=== PATIENT | female | born 1985 | race Caucasian/White ===

== ENCOUNTER 2019-06-21 05:27 | Emergency (ER) | payer OTHER ==
[2019-06-21] MEDS ORDERED: SODIUM CHLORIDE 1,000 ML IV STA (05:36)
[2019-06-21 05:39] VITALS: BMI 28.3
[2019-06-21 06:04] LABS: BASO % 0.7 % (0-2.0); EOS % 2.2 % (0-4.5); HEMATOCRIT 35.3 % (32.4-45.2); HEMOGLOBIN 11.9 GM/dL (10.7-15.3); LYMPH % 22.1 % (8-40); MCH 25.4 pg (25.7-33.7); MCHC 33.8 g/dl (32.0-36.0); MEAN PLT VOLUME 8.6 fl (7.5-11.1); MONO % 8.6 % (3.8-10.2); NEUT % 66.4 % (42.8-82.8); PLATELET COUNT 241 K/MM3 (134-434); RDW 17.3 % (11.6-15.6); WHITE BLOOD COUNT 6.6 K/mm3 (4.0-10.0)
[2019-06-21 06:20] LABS: INR 1.09 (0.83-1.09); PROTHROMBIN TIME (PATIENT) 12.9 SEC (9.7-13.0)
[2019-06-21 06:28] LABS: HYALINE CASTS 11 /lpf (0-8); PH,URINE 5.5 (5.0-8.0); URINE APPEARANCE CLEAR; URINE BACTERIA 98.1 /hpf (NEGATIVE); URINE BILIRUBIN NEGATIVE (NEGATIVE); URINE COLOR DK YELLOW; URINE GLUCOSE (UA) NEGATIVE (NEGATIVE); URINE KETONE NEGATIVE (NEGATIVE); URINE LEUK ESTERASE NEGATIVE (NEGATIVE); URINE NITRITE NEGATIVE (NEGATIVE); URINE PROTEIN TRACE (NEGATIVE); URINE RBC 2 /hpf (0-4); URINE WBC 2 /hpf (0-5)
[2019-06-21] MEDS ORDERED: ACETAMINOPHEN 1000 MG/100 ML VIAL (NON FORMULARY) IVPB ONE (07:32)
--- NOTE | 2019-06-21 07:40 | PDOC ---
History of Present Illness - General Chief Complaint: Vaginal Bleeding Stated Complaint: 2 MONTHS / VAG BLEED Time Seen by Provider: 06/21/19 07:18 History Source: Patient Exam Limitations: Clinical Condition - History of Present Illness Initial Comments: 06/21/19 07:34 Patient LMP April 10 at 10 weeks with no significant past medical history present with complaint of vaginal bleeding which has been intermittent for the past 3 days now using padding on the last night when she had a gush of blood using one pad. Patient reports seen her GRIPPER MACHINE OPERATOR yesterday for vaginal bleeding and was told was normal and had transvaginal ultrasound which she reported parts identification technician inserted a lot of pressure on her cervix during the ultrasound. Patient also reported cramping lower abdominal pain since overnight. Patient did not take anything for pain. He denies nausea, vomiting, fever or chills. Denies any other symptoms Timing/Duration: other (3 days) Past History - Past Medical History Allergies/Adverse Reactions: Allergies Allergy/AdvReac Type Severity Reaction Status Date / Time No Known Allergies Allergy Verified 06/21/19 05:39 Home Medications: Ambulatory Orders NK [No Known Home Medication] 06/21/19 Anemia: No Asthma: No Cancer: No Cardiac Disorders: No CVA: No COPD: No CHF: No Dementia: No Diabetes: No GI Disorders: No Disorders: No HTN: No Hypercholesterolemia: No Liver Disease: No Seizures: No Thyroid Disease: No - Surgical History Abdominal Surgery: No Appendectomy: No Cardiac Surgery: No Cholecystectomy: No Lung Surgery: No Neurologic Surgery: No Orthopedic Surgery: No - Reproductive History Is Patient Now?: Yes (#): 3 Para: 1 - Immunization History Immunization Up to Date: No - Suicide/Smoking/Psychosocial Hx Smoking Status: No Smoking History: Never smoked Number of Cigarettes Smoked Daily: 0 Information on smoking cessation initiated: No Hx Alcohol Use: No Drug/Substance Use Hx: No Substance Use Type: None Hx Substance Use Treatment: No Review of Systems - Review of Systems Able to Perform ROS?: Yes Is the patient limited Belarusian proficient: No Constitutional: No: Chills, Fever, Malaise HEENTM: No: Symptoms Reported Respiratory: No: Symptoms reported Cardiac (ROS): No: Symptoms Reported ABD/GI: Yes: Symptoms Reported, See HPI, Abdominal cramping (lower abdomen). No : Constipated, Diarrhea, Nausea, Vomiting : Yes: Symptoms Reported, See HPI, Other (vaginal bleeding). No: Burning, Dysuria, Discharge, Frequency, Urgency Integumentary: No: Symptoms Reported Neurological: No: Symptoms reported, Numbness, Paresthesia, Dizziness *Physical Exam - Vital Signs Last Vital Signs Temp Pulse Resp BP Pulse Ox 98.2 F 73 18 135/90 97 06/21/19 05:27 06/21/19 05:27 06/21/19 05:27 06/21/19 05:27 06/21/19 05:27 - Physical Exam General Appearance: Yes: Nourished, Appropriately Dressed, Mild Distress HEENT: positive: Normal ENT Inspection Neck: positive: Supple Respiratory/Chest: positive: Lungs Clear, Normal Breath Sounds. negative: Respiratory Distress, Accessory Muscle Use Cardiovascular: positive: Regular Rhythm, Regular Rate Female Pelvic Exam: positive: normal external exam, cervical os closed, normal adnexa. negative: CMT, discharge, lesions (no visible lesions), vaginal bleeding (no blood in vaginal vault) Gastrointestinal/Abdominal: positive: Normal Bowel Sounds, Tender (mild TTP to suprapubic region), Flat, Soft. negative: Organomegaly Musculoskeletal: positive: Normal Inspection. negative: CVA Tenderness Extremity: positive: Normal Inspection Integumentary: positive: Normal Color Neurologic: positive: Fully Oriented, Normal Response ED Treatment Course - LABORATORY CBC & Chemistry Diagram: 06/21/19 05:55 - ADDITIONAL ORDERS Additional order review: Laboratory Results 06/21/19 06/21/19 06/21/19 06:20 06:20 05:55 PT with INR 12.90 INR 1.09 Beta HCG, Quant Urine Color Dk yellow Urine Appearance Clear Urine pH 5.5 Ur Specific [place] 1.024 Urine Protein Trace Urine Glucose (UA) Negative Urine Ketones Negative Urine Blood 1+ H Urine Nitrite Negative Urine Bilirubin Negative Urine Urobilinogen 1.0 Ur Leukocyte Esterase Negative Urine WBC (Auto) 2 Urine RBC (Auto) 2 Urine Casts (Auto) 11 U Epithel Cells (Auto) 3.0 Urine Bacteria (Auto) 98.1 Urine HCG, Qual Positive 06/21/19 05:55 PT with INR INR Beta HCG, Quant 44354.2 Urine Color Urine Appearance Urine pH Ur Specific [place] Urine Protein Urine Glucose (UA) Urine Ketones Urine Blood Urine Nitrite Urine Bilirubin Urine Urobilinogen Ur Leukocyte Esterase Urine WBC (Auto) Urine RBC (Auto) Urine Casts (Auto) U Epithel Cells (Auto) Urine Bacteria (Auto) Urine HCG, Qual 06/21/19 05:55 RBC 4.70 MCV 75.0 L MCHC 33.8 RDW 17.3 H MPV 8.6 Neutrophils % 66.4 Lymphocytes % 22.1 Monocytes % 8.6 Eosinophils % 2.2 Basophils % 0.7 - Medications Given in the ED: ED Medications Discontinued Medications Generic Name Dose Route Start Last Admin Trade Name Freq PRN Reason Stop Dose Admin Sodium Chloride 1,000 mls @ 1,000 mls/hr 06/21/19 05:36 06/21/19 06:10 Normal Saline - IV 06/21/19 06:35 1,000 mls/hr ASDIR STA Administration Medical Decision Making - Medical Decision Making 06/21/19 07:38 Patient with LMP April 10 at 10 weeks with no significant past medical history present with complaint of vaginal bleeding which has been intermittent for the past 3 days now using padding on the last night when she had a gush of blood using one pad. Patient reports seen her OB yesterday for vaginal bleeding and was told was normal and had transvaginal ultrasound which she reported parts identification technician inserted a lot of pressure on her cervix during the ultrasound. Patient also reported cramping lower abdominal pain since overnight. Patient did not take anything for pain. He denies nausea, vomiting, fever or chills. Denies any other symptoms No vaginal bleeding on exam with no blood in the vault. Cervical os closed. no CMT. Mild tenderness to deep palpation over suprapubic region without guarding or rebound. CBC unremarkable. Beta hCG is 90,800. Transvaginal ultrasound ordered for evaluation for . Urinalysis within normal limits. Tylenol 1 g IV ordered for pain. RH: O+.Treat based on ultrasound results. 06/21/19 10:21 Official ultrasound shows live IUP with CRL 3.96cm c/w 10.6wks with FH of 148bpm. Patient symptoms threatened Ab and stable for discharge with f/u with her OB. Patient report mild nausea. zofran 4mg SL ordered for nausea. Patient stable for discharge *DC/Admit/Observation/Transfer Diagnosis at time of Disposition: Threatened - Discharge Dispostion Disposition: HOME Condition at time of disposition: Stable Decision to Admit order: No - Referrals Referrals: Dorian Diaz MD [Primary Care Provider] - - Patient Instructions Printed Discharge Instructions: DI for Threatened Additional Instructions: Your ultrasound shows normal live baby with normal heart rate. He lab work was normal. No vaginal bleeding now. Take Tylenol as needed for pain. Follow-up back which he TECHNICAL OPERATOR Print Language: YAKUT - Post Discharge Activity
--- NOTE | 2019-06-21 08:02 | PDOC ---
*Physical Exam - Vital Signs Last Vital Signs Temp Pulse Resp BP Pulse Ox 98.2 F 73 18 135/90 97 06/21/19 05:27 06/21/19 05:27 06/21/19 05:27 06/21/19 05:27 06/21/19 05:27 - Physical Exam Comments: 06/21/19 08:01 The patient was examined by [ANDREZ Draper] under my direct supervision. I personally evaluated the patient. I concur with the above findings and the plan of care. ED Treatment Course - LABORATORY CBC & Chemistry Diagram: 06/21/19 05:55 - ADDITIONAL ORDERS Additional order review: Laboratory Results 06/21/19 06/21/19 06/21/19 06:20 06:20 05:55 PT with INR 12.90 INR 1.09 Beta HCG, Quant Urine Color Dk yellow Urine Appearance Clear Urine pH 5.5 Ur Specific [place] 1.024 Urine Protein Trace Urine Glucose (UA) Negative Urine Ketones Negative Urine Blood 1+ H Urine Nitrite Negative Urine Bilirubin Negative Urine Urobilinogen 1.0 Ur Leukocyte Esterase Negative Urine WBC (Auto) 2 Urine RBC (Auto) 2 Urine Casts (Auto) 11 U Epithel Cells (Auto) 3.0 Urine Bacteria (Auto) 98.1 Urine HCG, Qual Positive 06/21/19 05:55 PT with INR INR Beta HCG, Quant 43302.2 Urine Color Urine Appearance Urine pH Ur Specific [place] Urine Protein Urine Glucose (UA) Urine Ketones Urine Blood Urine Nitrite Urine Bilirubin Urine Urobilinogen Ur Leukocyte Esterase Urine WBC (Auto) Urine RBC (Auto) Urine Casts (Auto) U Epithel Cells (Auto) Urine Bacteria (Auto) Urine HCG, Qual 06/21/19 05:55 RBC 4.70 MCV 75.0 L MCHC 33.8 RDW 17.3 H MPV 8.6 Neutrophils % 66.4 Lymphocytes % 22.1 Monocytes % 8.6 Eosinophils % 2.2 Basophils % 0.7 - Medications Given in the ED: ED Medications Discontinued Medications Generic Name Dose Route Start Last Admin Trade Name Freq PRN Reason Stop Dose Admin Sodium Chloride 1,000 mls @ 1,000 mls/hr 06/21/19 05:36 06/21/19 06:10 Normal Saline - IV 06/21/19 06:35 1,000 mls/hr ASDIR STA Administration *DC/Admit/Observation/Transfer Diagnosis at time of Disposition: Threatened - Discharge Dispostion Disposition: HOME Condition at time of disposition: Stable - Referrals Referrals: Dorian Diaz MD [Primary Care Provider] - - Patient Instructions Printed Discharge Instructions: DI for Threatened Additional Instructions: Your ultrasound shows normal live baby with normal heart rate. He lab work was normal. No vaginal bleeding now. Take Tylenol as needed for pain. 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
[2019-06-21] MEDS ORDERED: ACETAMINOPHEN INJECTION 100 ML IVPB ONE (08:38)
[2019-06-21] MEDS ORDERED: ONDANSETRON *ODT* 4 MG TABLET SL ONE (10:03)
[2019-06-21] MEDS ORDERED: ONDANSETRON *ODT* 4 MG TABLET ONE (10:15)
[2019-06-21] MEDS ORDERED: KETOROLAC TROMETHAMINE 60 MG/2 ML VIAL ONE (10:15)
[2019-06-21 10:35] VITALS: BP 118/80; PULSE 63; TEMP 98
== END 2019-06-21 10:34 | disposition home or self-care (01) ==
LOC: JER 05:27
PROC: 3E033NZ Introduction of Analgesics, Hypnotics, Sedatives into Peripheral Vein, Percutaneous Approach (ICD-10-PCS; principal; 2019-06-21)
PROC: 3E0337Z Introduction of Electrolytic and Water Balance Substance into Peripheral Vein, Percutaneous Approach (ICD-10-PCS; 2019-06-21)
DX: O20.0 Threatened abortion (principal); Z3A.10 10 weeks gestation of pregnancy
CPT/HCPCS: 36415; 76801-TC; 81003; 84702; 84703; 85025; 85610; 86850; 86900; 86901; 87086; 96361; 96374; 99283-25; J0131; J7030

== ENCOUNTER 2020-01-11 10:10 | Inpatient (IN) | payer OTHER ==
[2020-01-11 11:07] LABS: BASO % 0.7 % (0-2.0); EOS % 1.8 % (0-4.5); HEMATOCRIT 34.4 % (32.4-45.2); HEMOGLOBIN 11.7 GM/dL (10.7-15.3); LYMPH % 16.2 % (8-40); MEAN CELL VOLUME 79.6 fl (80-96); MEAN PLT VOLUME 8.3 fl (7.5-11.1); MONO % 7.8 % (3.8-10.2); NEUT % 73.5 % (42.8-82.8); PLATELET COUNT 225 K/MM3 (134-434); RBC 4.32 M/mm3 (3.60-5.2); WHITE BLOOD COUNT 9.7 K/mm3 (4.0-10.0)
[2020-01-11 11:22] VITALS: BMI 33.4
[2020-01-11 11:24] LABS: INR 0.95 (0.83-1.09); PROTHROMBIN TIME (PATIENT) 11.2 SEC (9.7-13.0)
--- NOTE | 2020-01-11 11:26 | HP ---
Past Medical History - Admission Chief Complaint: Labor pain History of Present Illness: 34 yo @ 39 weeks gestation, admitted for labor pain. History Source: Patient Limitations to Obtaining History: No Limitations - Past Medical History ...: 3 ...Para: 1 ...Term: 1 ...: 0 ...Spon : 1 ...Multiple Gestation: 0 ...LMP: 04/13/19 ... Weeks Gestation by Dates: 39.0 ...EDC by Dates: 01/18/20 ...EDC by Sono: 01/18/20 - Past Surgical History Past Surgical History: Yes: None Hx Myomectomy: No Hx Transabdominal Cerclage: No - Smoking History Smoking history: Never smoked Have you smoked in the past 12 months: No Aproximately how many cigarettes per day: 0 - Alcohol/Substance Use Hx Alcohol Use: No History of Substance Use: reports: None - Social History ADL: Independent History of Recent Travel: No Home Medications - Allergies Allergies/Adverse Reactions: Allergies Allergy/AdvReac Type Severity Reaction Status Date / Time No Known Allergies Allergy Verified 01/11/20 11:36 - Home Medications Home Medications: Ambulatory Orders Labetalol HCl [Normodyne -] 200 mg PO DAILY 01/11/20 Vitamins (Sjr) - 1 tab PO DAILY 01/11/20 Family Medical History Family History: Unremarkable Review of Systems - Review of Systems Constitutional: reports: No Symptoms Eyes: reports: No Symptoms HENT: reports: No Symptoms Neck: reports: No Symptoms Cardiovascular: reports: No Symptoms Respiratory: reports: No Symptoms Gastrointestinal: reports: No Symptoms Genitourinary: reports: Pain Breasts: reports: No Symptoms Reported Musculoskeletal: reports: No Symptoms Neurological: reports: No Symptoms Psychiatric: reports: No Symptoms Pain Intensity: 7 Physical Exam - Maternity Vital Signs: Vital Signs Temperature 98.0 F 01/11/20 11:00 Pulse Rate 83 01/11/20 11:00 Respiratory Rate 01/11/20 11:00 Blood Pressure 132/93 01/11/20 11:00 O2 Sat by Pulse Oximetry (%) Constitutional: Yes: No Distress Eyes: Yes: Conjunctiva Clear HENT: Yes: Atraumatic Neck: Yes: Supple Cardiovascular: Yes: Regular Rate and Rhythm Lungs: Clear to auscultation - Abdominal Exam/OB Number of Fetuses: Single Presentation: Vertex - Vaginal Exam/OB Vaginal Bleediing: No Dilatation (cm): 2 Effacement (%): 70 Amniotic Membrane Status: Intact Presentation: Vertex/Position Station: -2 - Physical Exam Musculoskeletal: Yes: WNL Extremities: Yes: WNL ...Motor Strength: WNL Psychiatric: Yes: Alert, Oriented - Labs Lab Results: CBC, BMP 01/11/20 10:50 Problem List - Problems (1) 39 weeks gestation of Problems reviewed: Yes Code(s): Z3A.39 - 39 WEEKS GESTATION OF (2) Pain during labor Problems reviewed: Yes Code(s): O99.89 - OTH DISEASES AND CONDITIONS COMPL PREG/CHLDBRTH; R52 - PAIN, UNSPECIFIED Assessment/Plan 39 weeks gestation Pain in labor Admit to L&D Analgesia as needed Pitocin augmentation
[2020-01-11 11:27] LABS: ACTIVATED PTT 29.2 SECONDS (25.2-36.5)
[2020-01-11] MEDS ORDERED: DEXTROSE 5%-LACTATED RINGERS 1,000 ML IV SCH (11:30)
[2020-01-11] MEDS ORDERED: OXYTOCIN 30 UNITS in 0.9% NS 30 UNIT/500 ML INFUS.BAG IVPB SCH (11:30)
[2020-01-11 11:38] LABS: ALBUMIN 2.6 g/dl (3.4-5.0); BILIRUBIN,TOTAL 0.4 mg/dL (0.2-1); BLOOD UREA NITROGEN 4.4 mg/dL (7-18); CALCIUM 8.7 mg/dL (8.5-10.1); CREATININE 0.5 mg/dL (0.55-1.3); TOT PROT 6.3 g/dl (6.4-8.2)
[2020-01-11] MEDS ORDERED: OXYTOCIN 30 UNITS in 0.9% NS 30 UNIT/500 ML INFUS.BAG IVPB ONE (11:44)
[2020-01-11] MEDS ORDERED: BUTORPHANOL TARTRATE 2 MG/ML VIAL IVPUSH PRN (15:20)
[2020-01-11] MEDS ORDERED: PROMETHAZINE HCL 25 MG/1 ML VIAL IVPB PRN (15:20)
[2020-01-11] MEDS ORDERED: PROMETHAZINE HCL 25 MG/1 ML VIAL ONE (15:23)
[2020-01-11] MEDS ORDERED: BUTORPHANOL TARTRATE 1 MG/ML VIAL ONE ×2 (15:23)
--- NOTE | 2020-01-11 15:29 | PN ---
Progress Note (short form) - Note Progress Note: Patient seen and evaluated, c/o moderate discomfort. FHR : Reassuring Umbarger : + regular contractions VE : /-2 AROM ( clear ) A/P : 39 weeks gestation Active labor Stadol for pain Anticipate Problem List - Problems (1) 39 weeks gestation of Code(s): Z3A.39 - 39 WEEKS GESTATION OF (2) Pain during labor Code(s): O99.89 - OTH DISEASES AND CONDITIONS COMPL PREG/CHLDBRTH; R52 - PAIN, UNSPECIFIED
[2020-01-11] MEDS ORDERED: ELECTROLYTE-148 SOLN 1,000 ML IV SCH ×2 (17:00→17:30)
[2020-01-11] MEDS ORDERED: OXYTOCIN 20 UNITS in 0.9% NS 20 UNIT/1,000 ML INFUS.BAG IV ONE (17:24)
[2020-01-11] MEDS ORDERED: LIDO 2%/EPI 1:200000 PRESRVFRE (20 ML SDVIAL) ONE (17:25)
[2020-01-11] MEDS ORDERED: FENTANYL/BUPIVACAINE/NS/PF - PCEA - 50 ML DISP.SYRIN EP ONE (17:32)
[2020-01-11] MEDS ORDERED: LIDOCAINE HCL 1% PRESERVATIVE FREE - 30ML VIAL ONE (17:43)
[2020-01-11] MEDS: FENTANYL/BUPIVACAINE/NS/PF - PCEA - 50 ML DISP.SYRIN EP SCH (17:45)
[2020-01-11] MEDS ORDERED: NALOXONE HCL 0.4 MG/ML VIAL IVPUSH PRN (18:14)
[2020-01-11] MEDS ORDERED: WITCH HAZEL 50% (TUCKS) 40 PAD/JAR PAD TP PRN (18:59)
[2020-01-11] MEDS ORDERED: BENZOCAINE 28 GM HEMORRHOIDAL OINTMENT TP PRN (18:59)
[2020-01-11] MEDS ORDERED: BENZOCAINE 20% 57 GM BOTTLE TP PRN (18:59)
[2020-01-11] MEDS ORDERED: IBUPROFEN 600 MG TABLET (FP) PO PRN (18:59)
[2020-01-11] MEDS ORDERED: BISACODYL 10 MG SUPP.RECT RC PRN (18:59)
[2020-01-11] MEDS ORDERED: METHYLERGONOVINE MALEATE 0.2 MG/1 ML AMP IM PRN (18:59)
[2020-01-11] MEDS ORDERED: OXYTOCIN 20 UNITS in 0.9% NS 20 UNIT/1,000 ML INFUS.BAG IV SCH (19:00)
--- NOTE | 2020-01-11 19:04 | PN ---
Delivery - Delivery Vaginal Delivery: Spontaneous Type of Anesthesia: Epidural Episiotomy/Laceration: 1st degree EBL (cc): 300 Delivery, Single - Stages of Labor Date 1st Stage Initiatied: 01/11/20 Time 1st Stage Initiated: 08:30 Date 2nd Stage Initiated: 01/11/20 Time 2nd Stage Initiated: 18:35 Date of Delivery: 01/11/20 Time of Delivery: 18:44 Time Placenta Delivered: 18:49 - Condition of Infant Underwear Cutter/Label Maker Present: No Gender: Female Position: Left, OA Total Hours ROM (Hrs/Mins): 3hrs 37min - 1 Minute Total Score: 9 5 Minutes Total Score: 9 - Feeding Plan Initial Plan: Elected not to breastfeed exclusively throughout hospitalization Remarks - Remarks Remarks: Normal spontaneous vaginal delivery of a live infant girl over first degree laceration. Nose / Oropharynx suctioned @ perineum. Cord clamped and cut. Baby handed to nurse. Placenta expelled spontaneously intact. Laceration repaired with 2.0 Chromic.
[2020-01-11] MEDS: ACETAMINOPHEN 325 MG TABLET (FP) PO PRN (22:17)
[2020-01-12 09:34] LABS: BASO % 0.4 % (0-2.0); EOS % 0.7 % (0-4.5); HEMATOCRIT 33.2 % (32.4-45.2); HEMOGLOBIN 11.2 GM/dL (10.7-15.3); LYMPH % 15.3 % (8-40); MCH 27.3 pg (25.7-33.7); MCHC 33.8 g/dl (32.0-36.0); MEAN CELL VOLUME 80.8 fl (80-96); MEAN PLT VOLUME 8.7 fl (7.5-11.1); MONO % 7.1 % (3.8-10.2); NEUT % 76.5 % (42.8-82.8); PLATELET COUNT 224 K/MM3 (134-434); RBC 4.11 M/mm3 (3.60-5.2); WHITE BLOOD COUNT 10.3 K/mm3 (4.0-10.0)
[2020-01-12] MEDS: PRENATAL VITAMINS W/ FOLIC ACID TABLET (FP) PO SCH (09:43)
[2020-01-12] MEDS: FERROUS SO4 325 MG TABLET (FP) PO SCH ×3 (09:43→18:12)
[2020-01-12] MEDS: ACETAMINOPHEN 325 MG TABLET (FP) PO PRN ×2 (15:37→23:20)
[2020-01-12] MEDS ORDERED: SENNOSIDES/DOCUSATE COMBO (SENNA PLUS) TABLET (UD) PO PRN (22:00)
[2020-01-13] MEDS: ACETAMINOPHEN 325 MG TABLET (FP) PO PRN (05:55)
[2020-01-13] MEDS: FENTANYL/BUPIVACAINE/NS/PF - PCEA - 50 ML DISP.SYRIN EP SCH (06:59)
[2020-01-13] MEDS: FERROUS SO4 325 MG TABLET (FP) PO SCH ×2 (07:02→08:59)
[2020-01-13 08:43] VITALS: BP 145/95; PULSE 84; TEMP 98.6
[2020-01-13] MEDS: PRENATAL VITAMINS W/ FOLIC ACID TABLET (FP) PO SCH (08:59)
--- NOTE | 2020-01-13 10:36 | DS ---
Physical Exam-CHANGE MANAGEMENT LEAD Vital Signs: Vital Signs Temperature 98.6 F 01/13/20 08:42 Pulse Rate 84 01/13/20 08:42 Respiratory Rate 20 01/13/20 08:42 Blood Pressure 145/95 01/13/20 08:42 O2 Sat by Pulse Oximetry (%) 95 01/11/20 20:00 Constitutional: Yes: Well Nourished Eyes: Yes: Conjunctiva Clear HENT: Yes: Atraumatic Neck: Yes: Supple Cardiovascular: Yes: Regular Rate and Rhythm Respiratory: Yes: Regular Gastrointestinal: Yes: Normal Bowel Sounds Pelvis: Yes: WNL External Genitalia: Yes: Normal Vaginal Exam: Yes: Normal Cervix: Yes: Normal Uterus: Yes: Firm ....Post : Yes: Uterus firm, Moderate lochia serosa Breast(s): Yes: WNL Musculoskeletal: Yes: WNL Extremities: Yes: WNL Neurological: Yes: Alert, Oriented ...Motor Strength: WNL Psychiatric: Yes: Alert, Oriented Labs: CBC, BMP 01/12/20 08:40 01/11/20 10:50 Delivery - Delivery Vaginal Delivery: Spontaneous Type of Anesthesia: Epidural Episiotomy/Laceration: 1st degree EBL (cc): 300 Delivery, Single - Stages of Labor Date 1st Stage Initiatied: 01/11/20 Time 1st Stage Initiated: 08:30 Date 2nd Stage Initiated: 01/11/20 Time 2nd Stage Initiated: 18:35 Date of Delivery: 01/11/20 Time of Delivery: 18:44 Time Placenta Delivered: 18:49 - Condition of Time Stamp Assembler/Assistant Baseball Coach Present: No Gender: Female Weight: 9 lb 2 oz Position: Left, OA Total Hours ROM (Hrs/Mins): 3hrs 37min - 1 Minute Total Score: 9 5 Minutes Total Score: 9 - [place] Feeding Plan Initial Plan: Elected not to breastfeed exclusively throughout hospitalization Discharge Summary Problems reviewed: Yes Reason For Visit: INDUCTION OF LABOR Current Active Problems 39 weeks gestation of (Acute) Pain during labor (Acute) Status post normal vaginal delivery (Acute) Procedures: Principal: Normal spontaneous vaginal delivery Hospital Course: Routine care Health Concerns: None Plan of Treatment: Ambulation Analgesia as needed F/U with MD in 6 weeks Goals: Resume regular activities in 6 weeks Condition: Good - Instructions Diet, Activity, Other Instructions: Regular diet No douching, no sexual intercourse x 6 weeks F/U with MD in 6 weeks Disposition: HOME - Home Medications Comprehensive Discharge Medication List: Ambulatory Orders Labetalol HCl [Normodyne -] 200 mg PO DAILY 01/11/20 Vitamins (Sjr) - 1 tab PO DAILY 01/11/20
== END 2020-01-13 12:05 | disposition home or self-care (01) | DRG 560 ==
LOC: JLDR 10:10 → J3W 20:37
PROVIDERS: ADMIT Obstetrics & Gynecology; ATTEND Obstetrics & Gynecology
PROC: 10E0XZZ Delivery of Products of Conception, External Approach (ICD-10-PCS; principal; 2020-01-11)
PROC: 0HQ9XZZ Repair Perineum Skin, External Approach (ICD-10-PCS; 2020-01-11)
DX: O70.0 First degree perineal laceration during delivery (principal); Z3A.39 39 weeks gestation of pregnancy; Z37.0 Single live birth
CPT/HCPCS: 36415; 59409; 80053; 84550; 85025; 85610; 85730; 86593; 86850; 86900; 86901

== ENCOUNTER 2020-08-24 16:44 | Emergency (ER) | payer OTHER ==
--- OUTSIDE RECORDS SUMMARY | 2020-08-24 17:00 | XMS ---
:1985 Author Organization [facility] Care Team Providers Name Role Phone Jeremi, Santiago Unavailable Unavailable Jeremi, Santiago Unavailable Unavailable Jeremi, Santiago Unavailable Unavailable MIKEY AMMIR, AMMIR Unavailable Unavailable Arcadio Moss Unavailable [phone] Clinton Rosado MD Unavailable Unavailable Jossue Rosado MD Unavailable Unavailable Jossue Rosado MD Unavailable Unavailable Jossue Rosado MD Unavailable Unavailable Jossue Rosado MD Unavailable Unavailable Jossue Rosado MD Unavailable Unavailable Jossue Rosado MD Unavailable Unavailable Jossue Rosado MD Unavailable Unavailable Jossue Rosado MD Unavailable Unavailable Jossue Rosado MD Unavailable Unavailable Jossue Rosado MD Unavailable Unavailable Jossue Rosado MD Unavailable Unavailable Jossue Rosado MD Unavailable Unavailable Jossue Rosado MD Unavailable Unavailable Ibanez Unavailable [phone] Zackery Unavailable [phone] Mary Unavailable Unavailable Mary Unavailable Unavailable Mary Unavailable Unavailable Mary Unavailable Unavailable JOANNEZ ALCAZAR Unavailable Unavailable Menla Unavailable Unavailable Menla Unavailable Unavailable Menla Unavailable Unavailable Menla Unavailable Unavailable Menla Unavailable Unavailable Menla Unavailable Unavailable Malka Unavailable Unavailable Malka Unavailable Unavailable Malka Unavailable Unavailable Malka Unavailable Unavailable Malka Unavailable Unavailable Malka Unavailable Unavailable Malka Unavailable Unavailable Malka Unavailable Unavailable Malka Unavailable Unavailable Malka Unavailable Unavailable Malka Unavailable Unavailable Malka Unavailable Unavailable Malka Unavailable Unavailable Malka Unavailable Unavailable Malka Unavailable Unavailable Mikey Unavailable [phone] Mikey Unavailable [phone] Mikey Unavailable [phone] Mikey Unavailable [phone] Mikey Unavailable [phone] Mikey Unavailable [phone] Mikey Unavailable [phone] Mikey Unavailable [phone] Mikey Unavailable [phone] Mikey Unavailable [phone] Mikey Unavailable [phone] Mikey Unavailable [phone] Mikey Unavailable [phone] Mikey Unavailable [phone] Mikey Unavailable [phone] Mikey Unavailable [phone] ZUNASSIGNED Unavailable Unavailable MARY Unavailable Unavailable ZUNASSIGNED@, Unavailable Unavailable Re-disclosure Warning The records that you are about to access may contain information from federally- assisted alcohol or drug abuse programs. If such information is present, then the following federally mandated warning applies: This information has been disclosed to you from records protected by federal confidentiality rules (42 CFR part 2). The federal rules prohibit you from making any further disclosure of this information unless further disclosure is expressly permitted by the written consent of the person to whom it pertains or as otherwise permitted by 42 CFR part 2. A general authorization for the release of medical or other information is NOT sufficient for this purpose. The Federal rules restrict any use of the information to criminally investigate or prosecute any alcohol or drug abuse patient.The records that you are about to access may contain highly sensitive health information, the redisclosure of which is protected by Article 27-F of the [facility] Public Health law. If you continue you may haveaccess to information: Regarding HIV / AIDS; Provided by facilities licensed or operated by the [facility] Office of Mental Health; or Provided by the [facility] Office for People With Developmental Disabilities. If such information is present, then the following [facility] mandated warning applies: This information has been disclosed to you from confidential records which are protected by state law. State law prohibits you from making any further disclosure of this information without the specific written consent of the person to whom it pertains, or as otherwise permitted by law. Any unauthorized further disclosure in violation of state law may result in a fine or usp sentence or both. A general authorization for the release of medical or other information is NOT sufficient authorization for further disclosure. Allergies and Adverse Reactions Type Description Substance Reaction Status Data Source(s ) Drug allergy Ibuprofen Ibuprofen Nausea/Vomitin Active NEXTGEN ([facility]) No Known No Known No known eCW2 (Planned Allergies Allergies allergies Parenthood - (situation) [employer]) Encounters Encounter Providers Location Date Indications Data Source(s ) Outpatient Attender: 08/27/2020 [facility] ZUNASSIGNEDAdmit 11:23:00 [facility] ter: AM EDT ZUNASSIGNEDRefer rer: [id number] ZUNASSIGNED@, Outpatient Admitter: [id number] 08/27/2020 [facility] ZUNASSIGNED@,Ref 12:00:00 [facility] errer: [id number] AM EDT ZUNASSIGNED@, Attender: [address] 07/08/2020 [facility] [place] 11:33:00 [facility] EDT - Center) 07/08/2020 11:33:00 AM EDT Attender: [address] 06/26/2020 [facility] ([facility] [place] 04:33:00 [facility] EDT - Center) 06/26/2020 04:33:00 PM EDT Outpatient Attender: [facility] RIANA AM EDT MEJIAReferrer: RIANA MARY OutpatientOFFICE/ Attender: [address] 05/23/2020 NEX TGEN ([facility] OUTPATIENT VISIT, [place] 11:15:00 [facility] EDT - Center) 05/23/2020 11:15:00 AM EDT Outpatient 05/23/2020 [facility] 11:13:00 [facility] AM EDT Outpatient 05/23/2020 [facility] 10:40:00 [facility] AM EDT Outpatient 05/23/2020 [facility] 12:00:00 [facility] AM EDT Outpatient Attender: RIANA H 04/08/2020 [facility]: [facility] nter RIANA PM EDT MEJIAReferrer: RIANA MARY OutpatientOFFICE/ Attender: [address] 04/08/2020 NEX TGEN ([facility] OUTPATIENT VISIT, [place] 03:47:00 [facility] EST PM EDT - Center) 04/08/2020 03:47:00 PM EDT Outpatient 04/08/2020 [facility] 03:45:00 Medical Center PM EDT Outpatient 04/08/2020 [facility] 12:00:00 Medical Center AM EDT Attender: Russell Torres [facility] 03/19/2020 [facility] ([facility] [place] 04:45:00 [facility] PM [facility]T - Center) 03/19/2020 04:45:00 PM EDT Attender: [facility] 03/04/2020 [facility] ([facility] [place] 03:19:00 [facility] PM EDT - Center) 03/04/2020 03:19:00 PM EDT Attender: [facility] 01/31/2020 [facility] ([facility] [place] 03:29:00 [facility] PM EST - Center) 01/31/2020 03:29:00 PM EST Attender: [facility] 01/01/2020 [facility] ([facility] [place] 12:45:00 [facility] PM EST - Center) 01/01/2020 12:45:00 PM EST Attender: Russell [address] [place] [address] 10/06/2019 [facility] ([facility] [place] 11:25:00 [facility] AM EST - Center) 10/06/2019 11:25:00 AM EST Outpatient Attender: RIANA Werner 09/26/2019 [facility] MEGGNAAAdmitter: 09:28:00 Medical Ce nter RIANA AM EDT MEGGANAReferrer: RIANA MARY OutpatientOFFICE/ Attender: Russell Torres [facility] 09/26/2019 NEX TGEN ([facility] OUTPATIENT VISIT, [place] 09:28:00 [facility] EST AM EDT - Center) 09/26/2019 09:28:00 AM EDT Outpatient 09/26/2019 [facility] 09:24:00 Medical Center AM EDT Outpatient 09/26/2019 [facility] 12:00:00 Medical Center AM EDT Attender: Urssell [address] [place] [address] 08/28/2019 [facility] ([facility] [place] 11:16:00 [facility] AM EDT - Center) 08/28/2019 11:16:00 AM EDT Attender: Russell [address] [place] [address] 06/21/2019 NEXT ([facility] [place] 04:39:00 [facility] PM EDT - Center) 06/21/2019 04:39:00 PM EDT Outpatient 05/29/2019 [facility] 10:37:00 Medical Center AM EDT Outpatient 05/29/2019 [facility] 12:00:00 Medical Center AM EDT Outpatient Attender: JEROD Werner 05/23/2019 [facility] 11:01:00 [facility] Center AMMIRAdmitter: AM EDT AMMIR MIKEY AMMIRReferrer: AMMIR MIKEY AMMIR OutpatientOFFICE/ Attender: [facility] 05/23/2019 GARY MEYERS ([facility] OUTPATIENT VISIT, [place] 11:01:00 [facility] AM EDT - Center) 05/23/2019 11:01:00 AM EDT Outpatient 05/23/2019 [facility] 10:59:00 Medical Center AM EDT Outpatient 05/23/2019 [facility] 12:00:00 Medical Center AM EDT Attender: [facility] 05/19/2019 ROMÁN MIR ([facility] 09:30:00 [facility] AM [facility]T - Center) 05/19/2019 09:30:00 AM EDT Emergency H 05/16/2019 [facility] 04:55:00 Medical Center PM EDT Attender: [facility] 05/16/2019 ROMÁN MIR ([facility] 03:45:00 [facility] PM EDT - Center) 05/16/2019 03:45:00 PM EDT Outpatient 05/15/2019 [facility] 10:52:00 Medical Center AM EDT Outpatient Attender: Clinton Werner 05/15/2019 [facility] Justin Rosado MDAdmitter: 09:24:00 Medical Ce nter [place] Rosado AM EDT MDReferrer: Clinton Rosado MD OutpatientOFFICE/ Attender: [facility] 05/15/2019 ESAU ([facility] OUTPATIENT VISITAlonzo MD 09:24:00 [facility] EST AM EDT - Center) 05/15/2019 09:24:00 AM EDT Outpatient 05/15/2019 [facility] 12:00:00 Medical Center AM EDT Outpatient 05/08/2019 [facility] 02:10:00 Medical Center PM EDT Outpatient Attender: ALEXANDRAR H 05/08/2019 [facility] MIKEY 10:05:00 [facility] AMMIRAdmitter: AM EDT AMMIR MIKEY AMMIRReferrer: AMMIR MIKEY AMMIR OutpatientOFFICE/ Attender: [address] 05/08/2019 NEX TGEN ([facility] OUTPATIENT VISIT, [place] 10:05:00 [facility] AM EDT - [place]) 05/08/2019 10:05:00 AM EDT Outpatient 05/08/2019 [facility] 12:00:00 [facility] AM EDT Inpatient Attender: Moni H-HAL6 05/03/2019 [facility] SayeghAttender: 10:45:00 Medical C enter OTTONIEL DAVID PM EDT - ROBERTAdmitter: 05/06/2019 OTTONIEL DAVID 12:30:00 ROBERTReferrer: PM EDT OTTONIEL DAVID OTTONIEL Patient discharged. Attender: [address] [facility] [place] 09:33:00 AM EDT [facility] 04/25/2019 [place]) 09:33:00 AM EDT Attender: [address] 04/19/2019 [facility] ([facility] [place] 09:25:00 AM EDT [facility] 04/19/2019 [place]) 09:25:00 AM EDT Attender: [address] 04/05/2019 [facility] [place] 01:01:00 PM EDT [facility] 04/05/2019 [place]) 01:01:00 PM EDT Attender: [address] 03/31/2019 [facility] ([facility] [place] 05:28:00 PM EDT [facility] 03/31/2019 [place]) 05:28:00 PM EDT Outpatient 03/23/2019 [facility] 04:23:00 PM EDT Medical C enter Outpatient Attender: JEROD H 03/23/2019 [facility] MIKEY 12:21:00 PM EDT Medical C enter AMMIRAdmitter: AMMIR MIKEY AMMIRReferrer: AMMIR MIKEY AMMIR OutpatientOFFICE/ Attender: [address] 03/23/2019 NEX TGEN ([facility] OUTPATIENT VISIT, [place] 12:21:00 PM EDT - [facility] Medical EST 03/23/2019 [place]) 12:21:00 PM EDT Outpatient 03/23/2019 [facility] 12:00:00 AM EDT Medical C enter [facility] 03/21/2019 [facility] 12[facility] [place] [facility] [employer] 03/01/2019 [facility]CW[facility] ([facility] 12:00:00 AM EDT [facility] [place] [facility] [employer]) Outpatient Attender: JEROD Werner 02/27/2019 [facility] MIKEY 10:36:00 AM EDT Medical C enter AMMIRAdmitter: JEROD JENSEN AMMIRReferrer: JEROD JENSEN AMMIJossue OutpatientOFFICE/ Attender: Russell [address] [place] [address] 02/27/2019 GARY TGCLARKE ([facility] OUTPATIENT VISIT, [place] 10:36:00 AM EDT [facility] 02/27/2019 [place]) 10:36:00 AM EDT Outpatient 02/27/2019 [facility] 09:57:00 AM EDT Medical C enter Outpatient 02/27/2019 [facility] 12:00:00 AM EDT Medical C enter Outpatient 01/27/2019 [facility] 02:02:00 PM EST Medical C enter Outpatient 01/27/2019 [facility] 12:00:00 AM EST Medical C enter Attender: Russell [address] [place] [address] 12/02/2018 [facility] ([facility] [place] 01:18:00 PM EST [facility] 12/02/2018 [place]) 01:18:00 PM EST Attender: Russell [address] [place] [address] 11/30/2018 [facility] ([facility] [place] 12:14:00 PM [facility] 11/30/2018 [place]) 12:14:00 PM EST OutpatientOFFICE/ Attender: Russell [address] [place] [address] 11/24/2018 NEX TGEN ([facility] OUTPATIENT VISIT, [place] 04:28:00 PM EST [facility] 11/24/2018 [place]) 04:28:00 PM EST Attender: Russell [address] [place] [address] 11/23/2018 [facility] ([facility] [place] 05:04:00 PM [facility] 11/23/2018 [place]) 05:04:00 PM EST Attender: [address] 11/14/2018 [facility] ([facility] [place] 03:15:00 PM [facility] 11/14/2018 [place]) 03:15:00 PM EST Attender: [address] 11/02/2018 [facility] ([facility] [place] 02:45:00 PM [facility] 11/02/2018 [place]) 02:45:00 PM EST Attender: [address] 10/06/2018 [facility] 10/06/2018 [place]) 03:33:00 PM EST Attender: [address] 09/26/2018 [facility] [facility] 09/26/2018 [place]) 09:44:00 AM EDT Attender: [address] 08/17/2018 [facility] ([facility] [place] 10:12:[address] [facility] 08/17/2018 [place]) 10:12:00 AM EDT Attender: [address] 07/13/2018 [facility] ([facility] [place] 02:21:[address] [facility] 07/13/2018 [place]) 02:21:00 PM EDT Attender: [address] 05/30/2018 [facility] ([facility] [place] 03:06:[address] [facility] 05/30/2018 [place]) 03:06:00 PM EDT Attender: [address] 05/25/2018 [facility] ([facility] [place] 04:35:[address] [facility] 05/25/2018 [place]) 04:35:00 PM EDT Attender: [address] 05/11/2018 [facility] [place] [facility] [place] 10:45:00 AM EDT Attender: [address] 04/26/2018 [facility] ([facility] [place] 10:36:[address] [facility] 04/26/2018 [place]) 10:36:00 AM EDT Attender: [address] 03/28/2018 [facility] ([facility] [place] 02:16:00 PM T [facility] 03/28/2018 [place]) 02:16:00 PM EDT Attender: Russell [address] [place] [address] 03/24/2018 [facility] ([facility] [place] 03:51:[address] [facility] 03/24/2018 [place]) 03:51:00 PM EDT Attender: Russell [address] [place] [address] 03/09/2018 [facility] ([facility] [place] 09:48:00 AM T [facility] 03/09/2018 [place]) 09:48:00 AM EDT Attender: Russell [address] [place] [address] 02/15/2018 [facility] ([facility] [place] 09:41:[address] [facility] 02/15/2018 [place]) 09:41:00 AM EDT Attender: Russell [address] [place] [address] 02/10/2018 [facility] ([facility] [place] 11:28:[address] [facility] 02/10/2018 [place]) 11:28:00 AM EDT Attender: [address] 11/17/2017 [facility] ([facility] [place] 10:02:00 AM [facility] 11/17/2017 [place]) 10:02:00 AM EST Attender: [address] 11/08/2017 [facility] ([facility] [place] 03:27:00 PM [facility] 11/08/2017 [place]) 03:27:00 PM EST Attender: Riana [address] [place] [address] 10/07/2017 [facility] ( [facility] 03:03:00 PM [facility] 10/07/2017 [place]) 03:03:00 PM EST Attender: Russell [address] [place] [address] 09/28/2017 [facility] ([facility] [place] 11:23:[address] [facility] 09/28/2017 [place]) 11:23:00 AM EDT Attender: Russell [address] [place] [address] 09/17/2017 [facility] ([facility] [place] 02:40:[address] [facility] 09/17/2017 [place]) 02:40:00 PM EDT Attender: [address] 09/14/2017 [facility] ([facility] [place] 02:21:[address] [facility] 09/14/2017 [place]) 02:21:00 PM EDT Attender: Russell [address] [place] [address] 08/17/2017 [facility] ([facility] [place] 02:17:00 PM EDT - [facility] 08/17/2017 Center) 02:17:00 PM EDT Attender: [address] 08/03/2017 [facility] ([facility] [place] 02:48:00 PM EDT [facility] 08/03/2017 [facility]) 02:48:00 PM EDT [facility] 08/03/2017 [facility]CW[facility] ([facility] 12:00:00 AM EDT [facility] [place] [facility] [employer] 07/06/2017 eCW2 ([facility] 12:00:00 AM EDT [facility] [place] [facility] [employer]) Attender: [address] 04/27/2017 [facility] ([facility] [place] 03:14:[address] [facility] 04/27/2017 [place]) 03:14:00 PM EDT Attender: [address] 03/26/2017 [facility] ([facility] [place] 03:07:00 PM EDT [facility] 03/26/2017 [place]) 03:07:00 PM EDT Attender: [address] 02/22/2017 [facility] ([facility] [place] 02:29:00 PM EDT [facility] 02/22/2017 [place]) 02:29:00 PM EDT Attender: [facility] 12/29/2016 N[facility] ([facility] 09:09:00 AM [facility] 12/29/2016 [place]) 09:09:00 AM EST Attender: [facility] 12/22/2016 NEXT GEN ([facility] 09:12:00 AM [facility] 12/22/2016 [place]) 09:12:00 AM EST Attender: [address] 12/11/2016 [facility] ([facility] [place] 09:23:00 AM [facility] 12/11/2016 [place]) 09:23:00 AM EST Attender: [address] 11/13/2016 [facility] ([facility] [place] 03:11:00 PM [facility] 11/13/2016 [place]) 03:11:00 PM EST Attender: [address] 11/02/2016 [facility] ([facility] [place] 09:57:00 AM EST [facility] 11/02/2016 [place]) 09:57:00 AM EST Attender: [address] 10/06/2016 [facility] ([facility] [place] 03:18:00 PM [facility] 10/06/2016 [place]) 03:18:00 PM EST Attender: Russell [address] [place] [address] 09/08/2016 [facility] [place] [facility] [place] 02:18:00 PM EDT Attender: [address] 08/28/2016 [facility] ([facility] [place] 02:23:[address] [facility] 08/28/2016 [place]) 02:23:00 PM EDT Attender: [address] 07/28/2016 [facility] ([facility] [place] 02:36:[address] [facility] 07/28/2016 [place]) 02:36:00 PM EDT Attender: [address] 06/10/2016 [facility] [place] [facility] [place] 10:05:00 AM EDT Attender: [facility] 06/02/2016 [facility] [place] 10:50:00 AM EDT Attender: [facility] 05/27/2016 [facility]EXT [facility] ([facility] 03[facility] [facility] 05/27/2016 [place]) 03:03:00 PM EDT Attender: [address] 2016 [facility] ([facility] [place] [facility] [address] [facility] [place] 02:06:00 PM EDT Attender: [facility] 05/06/2016 NEXT GEN ([facility] 01:04:00 PM EDT [facility] 05/06/2016 [place]) 01:04:00 PM EDT Attender: [address] 04/24/2016 [facility] ([facility] [place] [facility] [address] [facility] 04/[facility] [place] 03:15:00 PM EDT Attender: [facility] 04/16/2016 NEXT GEN ([facility] 01:27:00 PM EDT [facility] 04/16/2016 [place]) 01:27:00 PM EDT Attender: [address] 04/10/2016 [facility] ([facility] [place] 10:48:[address] [facility] 04/10/2016 [place]) 10:48:00 AM EDT Attender: [address] 03/25/2016 [facility] ([facility] [place] 01:59:00 PM EDT [facility] 03/25/2016 [place]) 01:59:00 PM EDT Attender: [facility] 03/17/2016 NEXT GEN [facility] [place] 09:32:00 AM EDT Attender: [address] 02/27/2016 [facility] ([facility] [place] 12:51:[address] [facility] 02/27/2016 [place]) 12:51:00 PM EDT Attender: [address] 02/17/2016 [facility] ([facility] [place] [facility] [address] [facility] [place] 02:06:00 PM EDT Attender: [address] 01/01/2016 [facility] ([facility] [place] 02:58:00 PM [facility] 01/01/2016 [place]) 02:58:00 PM EST Attender: [address] 12/30/2015 [facility] ([facility] [place] 10:36:00 AM [facility] 12/30/2015 [place]) 10:36:00 AM EST Attender: [address] 12/27/2015 [facility] ([facility] [place] 09:55:00 AM [facility] 12/27/2015 [place]) 09:55:00 AM EST Attender: [address] 12/02/2015 [facility] ([facility] [place] 09:29:00 AM [facility] 12/02/2015 [place]) 09:29:00 AM EST Attender: [address] 11/04/2015 [facility] ([facility] [place] 03:18:00 PM [facility] 11/04/2015 [place]) 03:18:00 PM EST Attender: [address] 10/07/2015 [facility] ( [facility] [place] 09:49:[facility] Ammir Mikey 09:49:00 AM EST Attender: [address] 09/25/2015 [facility] ([facility] [place] 03:55:[address] [facility] 09/25/2015 [place]) 03:55:00 PM EDT Attender: [address] 09/12/2015 [facility] ([facility] [place] 12:11:00 PM EDT [facility] 09/12/2015 [place]) 12:11:00 PM EDT Attender: [address] 09/03/2015 [facility]EXTGEN ( [facility] [place] 03:53:00 [facility] Ammir Mikey 03:53:00 PM EDT Attender: [address] 08/23/2015 [facility]EXTGEN ( [facility] [place] 04:26:00 [facility] Ammir Mikey 04:26:00 PM EDT Attender: [address] 08/15/2015 NEXTGEN ( [facility] [place] 04:09:00 [facility] Ammir Mikey 04:09:00 PM EDT Attender: [address] 08/12/2015 [facility] ([facility] [place] 03:27:[address] [facility] 08/12/2015 [place]) 03:27:00 PM EDT Attender: [address] 07/24/2015 [facility]EXT[facility] ([facility] [place] 10:59:00 AM EDT [facility] 07/24/2015 [place]) 10:59:00 AM EDT Attender: [address] 07/12/2015 NEXTGEN ( [facility] [place] 02:47:00 PM [facility] Ammir Mikey 02:47:00 PM EDT Attender: [address] 07/08/2015 NEXTGEN ([facility] [place] 09:52:[address] [facility] 07/08/2015 [place]) 09:52:00 AM EDT Attender: [address] 06/24/2015 [facility]EXT[facility] ([facility] [place] 02:06:00 PM EDT [facility] 06/24/2015 [place]) 02:06:00 PM EDT Attender: [address] 06/14/2015 [facility] ([facility] [place] 02:28:[address] [facility] 06/14/2015 [place]) 02:28:00 PM EDT Attender: [address] 06/10/2015 [facility] ([facility] [place] 02:29:00 PM T [facility] 06/10/2015 [place]) 02:29:00 PM EDT Attender: [address] 05/30/2015 NEXTGEN ( [facility] [place] 04:47:00 PM EDT [facility] GarciaAttender: 05/30/2015 [place]) Jerod Jensen 04:47:00 PM EDT Attender: [address] 05/28/2015 [facility] ([facility] [place] 10:19:[address] [facility] 05/28/2015 [place]) 10:19:00 AM EDT Attender: [address] 05/23/2015 NEXTGEN ([facility] Jeremi 12:54:00 PM EDT [facility] 05/23/2015 [place]) 12:54:00 PM EDT Attender: [address] 05/06/2015 NEXTGEN ([facility] [place] 02:15:[address] [facility] 05/06/2015 [place]) 02:15:00 PM EDT Attender: [address] 04/17/2015 NEXT[facility] ([facility] [place] 02:15:[address] [facility] 04/17/2015 [place]) 02:15:00 PM EDT Attender: [address] 04/12/2015 [facility]EXT[facility] ([facility] [place] 01:59:[address] [facility] 04/12/2015 [place]) 01:59:00 PM EDT Attender: [address] 03/14/2015 [facility] ([facility] [facility] 03/14/2015 [place]) 11:53:00 AM EDT Attender: [address] 02/19/2015 NEXTGEN ( [place] 10:39:00 AM EDT - [facility] Medical GarciaAttender: 02/19/2015 Center) Ammir Mikey 10:39:00 AM EDT Attender: Yissel [address] 02/07/2015 NEXTGEN ([facility] [place]ackery 01:23:00 PM EDT - [facility] Medical 02/07/2015 Center) 01:23:00 PM EDT Attender: [place]io [address] 01/29/2015 NEXTGEN ( [place] 10:18:00 AM EST [facility] Medical GarciaAttender: 01/29/2015 Center) Ammir Mikey 10:18:00 AM EST Attender: [place] [address] [facility] [place] 12:32:00 PM EST [facility] GarciaAttender: 01/24/2015 Center) Ammir Mikey 12:32:00 PM EST Attender: [place] [address] 01/21/2015 [facility] [place] 03:43:00 PM EST - [facility] Medical GarciaAttender: 01/21/2015 Center) Ammir Mikey 03:43:00 PM EST Attender: [place] [address] 01/09/2015 [facility] [place] 11:28:00 AM EST - [facility] Medical GarciaAttender: 01/09/2015 Center) Ammir Mikey 11:28:00 AM EST Attender: [place] [address] 12/27/2014 [facility] [place] 04:13:00 PM EST - [facility] Medical GarciaAttender: 12/27/2014 Center) Ammir Mikey 04:13:00 PM EST Attender: [place] [address] 12/20/2014 [facility] [place] 11:19:00 AM EST - [facility] Medical GarciaAttender: 12/20/2014 Center) Ammir Mikey 11:19:00 AM EST Attender: [place] [address] 12/13/2014 [facility] [place] 11:41:00 AM EST [facility] Medical GarciaAttender: 12/13/2014 Center) Ammir Mikey 11:41:00 AM EST Attender: [place] [address] 11/19/2014 [facility] [place] 02:34:00 PM EST - [facility] Medical GarciaAttender: 11/19/2014 Center) Ammir Mikey 02:34:00 PM EST Attender: [address] 10/22/2014 NEXTGEN ( [place] 09:43:00 AM EST [facility]2014 Center) Ammir Mikey 09:43:00 AM EST Attender: [address] 09/24/2014 NEXTGEN ( [place] 10:45:[facility] Ammir Mikey 10:45:00 AM EDT Attender: [address] 09/17/2014 [facility]EXTGEN ([facility] 12:20:00 PM EDT [facility] 09/17/2014 Center) 12:20:00 PM EDT Attender: [address] 08/29/2014 [facility] 02:29:00 PM EDT [facility] 08/29/2014 Center) 02:29:00 PM EDT Attender: [address] 08/21/2014 NEXTGEN ( [place] 09:53:00 AM [facility] Ammir Mikey 09:53:00 AM EDT Attender: [address] 07/31/2014 [facility] [place] 01:42:00 PM [facility] Ammir Mikey 01:42:00 PM EDT Attender: [address] 07/25/2014 NEXTGEN ( [place] 09:27:00 AM [facility]) Ammir Mikey 09:27:00 AM EDT Attender: [address] 05/03/2014 [facility] 03:49:00 PM EDT [facility] 05/03/2014 Center) 03:49:00 PM EDT Attender: [address] 04/24/2014 NEXTGEN ( [place] 10:50:00 AM [facility]) Ammir Mikey 10:50:00 AM EDT Attender: [address] 04/17/2014 NEXTGEN ( [place] 09:32:00 AM EDT - [facility]: 04/17/2014 Center) Ammir Mikey 09:32:00 AM EDT Attender: [address] 04/10/2014 NEXTGEN ( [place] 04:47:00 PM EDT - [facility] CenterAtt[facility]: 04/10/2014 Center) Ammir Mikey 04:47:00 PM EDT Attender: [address] 03/26/2014 NEXTGEN ( [place] 01:07:00 PM EDT - [facility] Center[facility]: 03/26/2014 Center) Ammir Mikey 01:07:00 PM EDT Attender: [address] 03/15/2014 NEXTGEN ( [place] 01:37:00 PM EDT - [facility] CenterAttender: 03/15/2014 [place]) Ammir Mikey 01:37:00 PM EDT Immunizations Vaccine Date Status Description Data Source(s) Misoprostol #4 (MAB) 03/01/2019 completed eCW2 (P lanned 03:43:00 [facility] ED[facility] [employer]) Mifepristone 03/01/2019 completed eCW2 (Planned 03:42:00 PM [facility] EDT [employer]) New in 2011. IIV4 08/17/2017 completed Influenza, NEXTGEN ( [facility] 12:00:00 AM injectable, [facility] EDT quadrivalent, Center) preservative free, 3 yrs or older Source: New Immunization Record IIV3. This is one 08/28/2016 12:00:00 completed Influenza, seaso nal, NEXTGEN ([facility] of two codes AM EDT injectable (3 yrs or [facility] replacing CVX 15, older) Center) which is being retired. Source: New Immunization Record IIV3. This is one 09/12/2015 12:00:00 completed Influenza, seaso nal, NEXTGEN ([facility] of two codes AM EDT injectable (3 yrs or [facility] replacing CVX 15, older) Center) which is being retired. Source: New Immunization Record Tdap 10/22/2014 12:00:00 AM EST completed Tdap N EXTGEN ([facility]) Source: New Immunization Record This code is being 09/17/2014 12:00:00 completed Flu (split) (3 NEXTGEN ([facility] retired. It will still be AM EDT yrs or older) J osep Medical found in older Center) immunization records. It included both preservative free and non-preservative free. Source: New Immunization Record Medications Medication Brand Start Product Dose Route Administrative [facility] Indications Reaction Description Data Name Date Form Instructions Instructions Source(s) Ciprofloxac Cipro ORAL active Ciproflo xaci NEXTGEN in 250 MG 250 mg 2019 {tbl} n 250 MG (Sa int Oral Tablet tablet 12:00: Oral Tabl et Ayah [Cipro] 00 AM [Cipro] Medical Cipro 250 EDT Center) mg tablet Naproxen naprox ORAL active take 1 NEX TGEN 500 MG Oral en 500 2020 {tbl} tablet by (Saint Tablet mg 12:00: oral route 2 Sundeep ephs naproxen tablet 00 AM times every M edical 500 mg EDT day with Center) tablet food Amoxicillin amoxic ORAL active take 1 NEXTGEN 500 MG Oral illin 2020 {caps capsule by (Saint Capsule 500 mg 12:00: ule} oral route Sarah sephs amoxicillin capsul 00 AM every 12 M edical 500 mg e EDT hours Center) capsule Acetaminoph Mapap ORAL active Acetamin ophe NEXTGEN en 500 MG (aceta 2020 {caps n 500 MG (Sa int Oral minoph 12:00: ule} Oral Capsule Sundeep ephs Capsule en) 00 AM [Mapap] Medical [Mapap] 500 mg EDT Center) Mapap capsul (acetaminop e hen) 500 mg capsule Polymyxin B polymy OPHTHA complet inst ill 1 NEXTGEN 82163 daphnie B 2020 drop LMIC ed drop by (Saint UNT/ML / sulfat 12:00: ophthal[facility] Trimethopri e 00 AM route every Medical m 1 MG/ML 10,000 EDT 6 hours into Center) Ophthalmic unit-t affected Solution rimeth eye(s) polymyxin B oprim sulfate 1 10,000 mg/mL unit-trimet eye hoprim 1 drops mg/mL eye drops Amlodipine amlodi ORAL active take 1 N EXTGEN 5 MG Oral pine 5 2019 {tbl} tablet by (S aint Tablet mg 12:00: oral route Lizandro hs amlodipine tablet 00 AM every day M edical 5 mg tablet EDT Center) sennosides, senna 01/30/ .00 ORAL active take 2 N EXTGEN MCC 8.6 MG 8.6 mg 2019 {tbl} tablet by ( [facility] Oral Tablet tablet 12:00: oral rout e Ayah senna 8.6 00 AM every day as M edical mg tablet EST needed for Cent er) constipation Methyldopa methyl ORAL active take 1 N EXTGEN 500 MG Oral dopa 2019 {tbl} tablet by (S aint Tablet 500 mg 12:00: oral route 2 J osephs methyldopa tablet 00 AM times every Medical 500 mg EST day Center) tablet Polyethylen Systan 10/06/ active Polyeth ylene NEXTGEN e Glycol e (PF) 2019 Glycol 400 4 ( [facility] 400 4 MG/ML 0.4 12:00: MG/ML / Sundeep ephs / Propylene %-0.3 00 AM Propylene M edical glycol 3 % eye EST glycol 3 Center ) MG/ML drops MG/ML Ophthalmic in a Ophthalmic Solution droppe Solution [Systane] rette [Systane] Systane (PF) 0.4 %-0.3 % eye drops in a dropperette Hydrocortis hydroc apply by NEXTGEN one 25 ortiso 2018 ed topical (Saint MG/ML ne 2.5 12:00: route every Sarah sephs Topical % 00 AM day to the Medic al Cream topica EDT affected Center) hydrocortis l area(s) one 2.5 % cream topical cream 28 PNV 05/19/ active 1 tab by NEXTGEN mg iron-800 no.[id number] mouth daily (Saint mcg tablet ferrou 12:00: Lizandro hs s 00 AM Medical fum/fo EDT Center) lic ac Levonorgest Plan B .00 ORAL complet Levono rgestr NEXTGEN rel 1.5 MG 2018 {tbl} ed el 1.5 MG ( [facility] Oral Tablet ep 1.5 12:00: Oral Tabl et Ayah [Plan B mg 00 AM [Plan B Medical One-Step] tablet EDT One-Step] [facility] ter) Plan B One-Step 1.5 mg tablet Amlodipine amlodi ORAL complet take 1 NEXTGEN 5 MG Oral pine 5 2018 {tbl} ed tablet by (S aint Tablet mg 12:00: oral route Lizandro hs amlodipine tablet 00 AM every day M edical 5 mg tablet EDT Center) Levonorgest Plan B ORAL complet Levono rgestr NEXTGEN rel 1.5 MG 2018 {tbl} ed el 1.5 MG ( [facility] Oral Tablet ep 1.5 12:00: Oral Tabl et Ayah [Plan B mg 00 AM [Plan B Medical One-Step] tablet EDT One-Step] [facility]anne ter) Plan B One-Step 1.5 mg tablet Naproxen naprox ORAL complet take 1 NE XTGEN 500 MG Oral en 500 2018 {tbl} ed tablet by (Saint Tablet mg 12:00: oral route 2 Sundeep ephs naproxen tablet 00 AM times every M edical 500 mg EDT day with Center) tablet food 28 PNV 02/27/ complet 1 tab by NEXTGEN mg-800 mcg no.133 2019 ed mouth daily (Saint tablet /maggie 12:00: Ayah us 00 AM Medical fum/fo EDT Center) lic Amlodipine amlodi ORAL complet take 1 NEXTGEN 5 MG Oral pine 5 2018 {tbl} ed tablet by (S aint Tablet mg 12:00: oral route Lizandro hs amlodipine tablet 00 AM every day M edical 5 mg tablet EST Center) Levonorgest Plan B ORAL complet Levono rgestr NEXTGEN rel 1.5 MG -2018 {tbl} ed el 1.5 MG ( [facility] Oral Tablet ep 1.5 12:00: Oral Tabl et Ayah [Plan B mg 00 AM [Plan B Medical One-Step] tablet EST One-Step] [facility] ter) Plan B One-Step 1.5 mg tablet Ibuprofen ibupro ORAL complet take 1 N EXTGEN 800 MG Oral fen 2017 {tbl} ed tablet by (S aint Tablet 800 mg 12:00: oral route 3 J osephs ibuprofen tablet 00 AM times every Medical 800 mg EST day with Center) tablet food ferrous ferrou ORAL active take 1 NEXT GEN sulfate 325 s 2018 {tbl} tablet by (S aint MG Oral sulfat 12:00: oral route 2 Ayah Tablet e 325 00 AM times every Medi aidee ferrous mg (65 EDT day Center) sulfate 325 mg mg (65 mg iron) iron) tablet tablet gabapentin gabape ORAL active take 1 N EXTGEN 100 MG Oral ntin 2018 {caps capsule by ( [facility] Capsule 100 mg 12:00: ule} oral route Sarah sephs gabapentin capsul 00 AM every day M edical 100 mg e EDT Center) capsule Loratadine lorata ORAL active take 1 N EXTGEN 10 MG Oral dine 2017 {tbl} tablet by (Sa int Tablet 10 mg 12:00: oral route Justin phs loratadine tablet 00 AM every day M edical 10 mg EDT Center) tablet Calcium Os-Aidee 03/28/ ORAL active Calcium NEX TGEN Carbonate 500 + 2018 Carbonate (Osvaldo nt 1250 MG / D3 500 12:00: 1250 MG / J osephs Cholecalcif mg 00 AM Cholecalcife Medical john 200 (1,250 EDT rol 200 UNT Ce nter) UNT Oral mg)-20 Oral Tablet Tablet 0 unit [Os-Aidee 500 [Os-Aidee 500 tablet with D] with D] Os-Aidee 500 + D3 500 mg (1,250 mg)-200 unit tablet Famotidine famoti ORAL active take 1 N EXTGEN 20 MG Oral dine 2017 {tbl} tablet by (Sa int Tablet 20 mg 12:00: oral route 2 Sarah sephs famotidine tablet 00 AM times every Medical 20 mg EDT day Center) tablet Flonase Flutic .00 NASAL complet Fluticaso ne NEXTGEN Allergy asone 2018 spray ed propionate (Osvaldo nt Relief 50 propio 12:00: 0.05 [facility] s mcg/actuati leslie 00 AM MG/ACTUAT Me dical on nasal 0.05 EDT Met[address] Dose [address]) spray,suspe MG/ACT Nasal [place] nsion UAT [Flonase] Metere d Dose Nasal [place] topiramate Topama .00 ORAL active topirama te NEXTGEN 50 MG Oral x 50 2016 {tbl} 50 MG Oral (S aint Tablet mg 12:00: Tablet Ayah [Topamax] tablet 00 AM [Topamax] Me dical Topamax 50 EDT Center) mg tablet Fluoxetine fluoxe .00 ORAL complet take 1 NEXTGEN 20 MG Oral abraham 2016 {caps ed capsule by (S aint Capsule 20 mg 12:00: ule} oral route Sundeep ephs fluoxetine capsul 00 AM every day i n Medical 20 mg e EDT the morning Center) capsule Azithromyci Azithr active as direct ed eCW2 n 500 MG omycin (Planned Oral Tablet 500 MG Parent staff[facility] [place] [employer] ed) Misoprostol UNK active 4 tablets e CW2 4 tabs 200 (Planned MCG [facility] [place] [employer] ed) Ondansetron Zofran suspend 1 tablet s eCW2 4 MG Oral 4 MG ed (Planned Tablet Parenthood [Zofran] - [place] Zofran 4 MG [employer] ed) Azithromyci Azithr suspend as direc twan eCW2 n 500 MG omycin ed (Planned Oral Tablet 500 MG Parent stafford - [place] [employer] ed) amLODIPine 1 complet [facility] 5 mg ed Ayah TabletDirec Medical tions: 1 Center tablet oral daily Ibuprofen Ibupro active 1 tablet eC W2 800 MG Oral fen (Planned Tablet 800 MG [facility] [place] [employer] ed) Lutera Lutera active 1 tablet eCW2 0.1-20 0.1-20 (Planned MG-MCG MG-MCG [facility] [place] [employer] ed) Mifepriston UNK active 1 tablet eC W2 e 200 MG ([facility] [place] [employer] ed) Misoprostol UNK suspend 4 tablets eCW2 4 tabs 200 ed (Planned MCG [facility] [place] [employer] ed) Cyred Cyred active 1 tablet eCW2 0.15-30 0.15-3 (Planned MG-MCG 0 Parenthood MG-MCG - [place] [employer] ed) Ondansetron Zofran active 1 tablets eCW2 4 MG Oral 4 MG (Planned Tablet Parenthood [Zofran] - [place] Zofran 4 MG [employer] ed) Mifepriston UNK suspend 1 tablet e CW2 e 200 MG ed ([facility] [place] [employer] ed) Ibuprofen Ibupro suspend 1 tablet e CW2 800 MG Oral fen ed (Planned Tablet 800 MG [facility] [place] [employer] ed) Insurance Providers Payer name Policy type Policy ID Covered Covered democrat's Policy P julio c / Coverage democrat ID relationship to Conteh Inf ormation type conteh PHIL [id number] SP [id number] 600 HEALTH NON CAP PHIL CARE W [id number] 01 [id number] [place] [id number] SP [id number] PHIL W [id number] 01 [id number] 600 W [id number] 01 [id number] W [id number] 600 W [id number] 01 [id number] PHIL CARE W [id number] 01 [id number] [place] W [id number] 01 [id number] 600 PHIL W [id number] 01 [id number] W [id number] PHIL CARE W [id number] 01 [id number] PHIL CARE W [id number] 01 [id number] Problems, Conditions, and Diagnoses Code Display Name Description Problem Type Effective Data Sour ce(s) Dates Unknown Problems Unknown Problems Problem eC W2 ([facility] [place] [employer]) Z71.89 Other specified OTHER SPECIFIED Diagnosis 05/23/2020 [place] counseling COUNSELING 11:15:[facility] R10.9 Unspecified UNSPECIFIED Diagnosis 05/23/2020 [facility] abdominal pain ABDOMINAL PAIN 11:15:00 AM [facility] Center EDT Z71.82 Exercise EXERCISE Diagnosis 04/08/2020 [facility] counseling COUNSELING 03:47:00 PM Medical Cente r EDT Z71.3 Dietary counseling DIETARY Diagnosis 04/08/2020 [facility] [place] and surveillance COUNSELING AND 03:47:00 PM [facility] SURVEILLANCE EDT Z68.29 Body mass index BODY MASS INDEX Diagnosis 04/08/2020 [place] (BMI) 29.0-29.9, (BMI) 29.0-29.9, 03:47:00 PM [facility] adult ADULT EDT J40 Bronchitis, not BRONCHITIS, NOT Diagnosis 04/08/2020 [place] specified as acute SPECIFIED 03:47:00 PM [facility] or chronic ACUTE OR CHRONIC EDT Z33.1 state, STATE, Diagnosis 09/26/2019 [place] incidental INCIDENTAL 09:28:00 AM Medical Cente r EDT I10 Essential ESSENTIAL Diagnosis 05/16/2019 [facility] [place] (primary) (PRIMARY) 04:55:00 PM Medical Cente r hypertension HYPERTENSION EDT E86.0 Dehydration DEHYDRATION Diagnosis 05/16/2019 [facility] 04:55:00 PM Medical Cente r EDT R10.11 Right upper RIGHT UPPER Diagnosis 05/16/2019 [facility] quadrant pain QUADRANT PAIN 04:55:00 PM Medical Center EDT K87 Disorders of DISORD OF GB, Diagnosis 05/15/2019 [facility] ephs gallbladder, BILIARY TRAC AND 09:24:00 AM Medic al Center biliary tract and PANCREAS IN DIS EDT pancreas in CLASSD ELSWHR diseases classified elsewhere K81.9 Cholecystitis, CHOLECYSTITIS, Diagnosis 05/08/2019 [facility] unspecified UNSPECIFIED 10:05:[address] EDT K85.10 Biliary acute BILIARY ACUTE Diagnosis 05/08/2019 [facility] langstons pancreatitis PANCREATITIS 10:05:00 AM Medical C enter without necrosis WITHOUT NECROSIS EDT or infection OR INFECTION D64.9 Anemia, ANEMIA, Diagnosis 05/06/2019 [facility] [place] unspecified UNSPECIFIED 12:30:[address] EDT N83.201 Unspecified UNSPECIFIED Diagnosis 05/06/2019 [facility] ovarian cyst, OVARIAN CYST, 12:30:00 PM Medical Center right side RIGHT SIDE EDT K85.90 Acute pancreatitis ACUTE Diagnosis 05/03/2019 [facility] [place] without necrosis PANCREATITIS 10:45:00 PM Medic al Center or infection, WITHOUT NECROSIS EDT unspecified OR INFECTION, UNSP Surgeries/Procedures Procedure Description Date Indications Data Source(s) URINE TEST 05/23/2020 NEXTGEN ([facility] 12:00:00 AM EDT [facility] 05/23/2020 [place]) 12:00:00 AM EDT OFFICE/OUTPATIENT VISIT, 05/23/2020 NEX TGEN ([facility] EST 12:00:00 AM EDT [facility] 05/23/2020 [place]) 12:00:00 AM EDT ROUTINE VENIPUNCTURE 05/23/2020 NEXTGEN ([facility] 12:00:00 AM EDT [facility] 05/23/2020 Center) 12:00:00 AM EDT OFFICE/OUTPATIENT VISIT, 04/08/2020 NEX TGEN ([facility] EST 12:00:00 AM EDT [facility] - 04/08/2020 Center) 12:00:00 AM EDT OFFICE/OUTPATIENT VISIT, 09/26/2019 NEX TGEN ([facility] EST 12:00:00 AM EDT [facility] - 09/26/2019 Center) 12:00:00 AM EDT OFFICE/OUTPATIENT VISIT, 05/23/2019 NEX TGEN ([facility] EST 12:00:00 AM EDT [facility] - 05/23/2019 Center) 12:00:00 AM EDT OFFICE/OUTPATIENT VISIT, 05/15/2019 NEX TGEN ([facility] EST 12:00:00 AM EDT [facility] - 05/15/2019 Center) 12:00:00 AM EDT OFFICE/OUTPATIENT VISIT, 05/08/2019 NEX TGEN ([facility] EST 12:00:00 AM EDT [facility] - 05/08/2019 Center) 12:00:00 AM EDT OFFICE/OUTPATIENT VISIT, 03/23/2019 NEX TGEN ([facility] EST 12:00:00 AM EDT [facility] - 03/23/2019 Center) 12:00:00 AM EDT US transvaginal, 03/01/2019 eCW2 (Plann ed uterus 12:00:00 AM EDT [facility] [place] [employer] [facility]) Test 03/01/2019 eCW2 (Planned 12:00:00 AM EDT [facility] [place] [employer] rated) HEMOGLOBIN 03/01/2019 eCW2 (Planned 12:00:00 AM EDT [facility] [place] [employer] rated) Cyred (NON 340B) 03/01/2019 eCW2 (Plann ed 12:00:00 AM EDT [facility] [place] [employer] rated) Prescription drug, oral, 03/01/2019 eCW 2 (Planned non chemotherapeutic, 12:00:00 AM EDT Par enthood - [place] nos [employer] rated) Mifepristone, oral, 200 03/01/2019 eCW2 (Planned mg 12:00:00 AM EDT [facility] [place] [employer] rated) Misoprostol, oral, 200 03/01/2019 eCW2 (Planned mcg 12:00:00 AM EDT [facility] [place] [employer] rated) OFFICE/OUTPATIENT VISIT, 02/27/2019 NEX TGEN ([facility] EST 12:00:00 AM EDT [facility] - 02/27/2019 Center) 12:00:00 AM EDT OFFICE/OUTPATIENT VISIT, 11/24/2018 NEX TGEN ([facility] EST 12:00:00 AM EST [facility] - 11/24/2018 Center) 12:00:00 AM EST Results ID Date Data Source [id number] 05/23/2020 12:02:00 PM EDT [facility] 0 Name Value Range Interpretation Description Data Sup porting Code Source(s) Document(s ) Color of Urine YELLOW <content Saint styleCode="Raquel Ayah d">Color, Medical Urine Center </content>YELL OW <content styleCode="Evangelina lics"> (YELLOW )</content> UNK CLEAR <content Saint styleCode="Raquel Ayah d">Urine Medical Clarity Center </content>CLOU DY <content styleCode="Evangelina lics"> (CLEAR )</content> Glucose NEGATIVE <content Saint [Mass/volume] styleCode="Raquel Ayah in Urine by d">Urine Medical Test strip Glucose Center </content>NEGA TIVE MG/DL<content styleCode="Evangelina lics"> (NEGATIVE MG/DL)</conten t> UNK NEGATIVE <content Saint styleCode="Raquel Ayah d">Urine Medical Bilirubin Center </content>NEGA TIVE <content styleCode="Evangelina lics"> (NEGATIVE )</content> Specific 1.015-1.02 <content Saint gravity of 5 styleCode="Raquel Ayah Urine by Test d">Urine Medical strip Specific Center [facility] </content>1.02 5 <content styleCode="Evangelina lics"> (1.015-1.025 )</content> Ketones NEGATIVE <content Saint [Mass/volume] styleCode="Raquel Ayah in Urine by d">Urine Medical Test strip Ketone Center </content>NEGA TIVE MG/DL<content styleCode="Evangelina lics"> (NEGATIVE MG/DL)</conten t> Hemoglobin NEGATIVE <content Saint [Presence] in styleCode="Raquel Canelas Urine by Test d">Urine Blood Medical strip </content>NEGA Center TIVE <content styleCode="Evangelina lics"> (NEGATIVE )</content> pH of Urine by 4.5-8.0 <content Saint Test strip styleCode="Raquel Ayah d">Urine pH Medical </content>5.5 Center <content styleCode="Evangelina lics"> (4.5-8.0 )</content> Protein NEGATIVE <content Saint [Mass/volume] styleCode="Raquel [place]elas in Urine by d">Urine Medical Test strip Protein Center </content>NEGA TIVE MG/DL<content styleCode="Evangelina lics"> (NEGATIVE MG/DL)</conten t> Leukocyte NEGATIVE <content [facility] esterase styleCode="Raquel Canelas [Presence] in d">Urine Medical Urine by Test Leukocyte Center strip </content>TRAC E <content styleCode="Evangelina lics"> (NEGATIVE )</content> Urobilinogen 0.2-1.0 <content Saint [Units/volume] styleCode="Raquel Canelas in Urine by d">Urine Medical Test strip Urobilinogen Center </content>0.2 MG/DL<content styleCode="Evangelina lics"> (0.2-1.0 MG/DL)</conten t> Nitrite NEGATIVE <content Saint [Presence] in styleCode="Raquel Canelas Urine by Test d">Urine Medical strip Nitrite Center </content>NEGA TIVE <content styleCode="Evangelina lics"> (NEGATIVE )</content> UNK 0-3 <content Saint styleCode="Raquel Ayah d">Urine Red Medical Blood Cell Center </content>0-3 HPF<content styleCode="Evangelina lics"> (0-3 HPF)</content> UNK 0-3 <content Saint styleCode="Raquel Ayah d">Urine White Medical Blood Cell Center </content>3-5 HPF<content styleCode="Evangelina lics"> (0-3 HPF)</content> UNK NEGATIVE <content Saint styleCode="Raquel Ayah d">Urine Medical Bacteria Center </content>MANY HPF<content styleCode="Evangelina lics"> (NEGATIVE HPF)</content> UNK NONE SEEN <content Saint styleCode="Raquel Canelas d">Epithelial Medical Cell Center </content>2-5 HPF<content styleCode="Evangelina lics"> (NONE SEEN HPF)</content> ID Date Data Source Liver 05/23/2020 12:02:00 PM EDT [facility] [id number] Name Value Range Interpretation Description Data Sup porting Code Source(s) Document(s ) Aspartate 14-36 Above high <content [facility] aminotransferase normal styleCode="Bold"> Lizandro hs [Enzymatic Aspartate Medical activity/volume] Aminotransferase Center in Serum or Plasma (AST) </content>38 IU/L H<content styleCode="Italic s"> (14-36 IU/L)</content> Alanine 7-30 <content [facility] aminotransferase styleCode="Bold"> Lizandro hs [Enzymatic Alanine Medical activity/volume] Aminotransferase Center in Serum or Plasma (ALT) </content>30 IU/L<content styleCode="Italic s"> (7-30 IU/L)</content> Alkaline 38-126 <content [facility] phosphatase styleCode="Bold"> Ayah [Enzymatic Alkaline Medical activity/volume] Phosphatase (ALP) Cente r in Serum or Plasma </content>78 IU/L<content styleCode="Italic s"> (38-126 IU/L)</content> Bilirubin.total 0.2-1.3 <content [facility] [Mass/volume] in styleCode="Bold"> Lizandro hs Serum or Plasma Bilirubin Total Medical </content>0.6 Center MG/DL<content styleCode="Italic s"> (0.2-1.3 MG/DL)</content> Albumin 3.5-5.0 <content [facility] [Mass/volume] in styleCode="Bold"> Lizandro hs Serum or Plasma Albumin Medical </content>4.7 Center G/DL<content styleCode="Italic s"> (3.5-5.0 G/DL)</content> ID Date Data Source LIPID.[id number] 05/23/2020 12:02:00 PM EDT [facility] Name Value Range Interpretation Description Data Sup porting Code Source(s) Document(s ) Triglyceride < 150 <content [facility] [Mass/volume] in styleCode="Raquel Ayah Serum or Plasma d">Triglycerid [facility] </content>124 MG/DL<content styleCode="Evangelina lics"> (< 150 MG/DL)</conten t> UNK > 60 Below low normal <content [facility] styleCode="Raquel Ayah d">HDL- Medical Cholesterol Center </content>36 MG/DL L<content styleCode="Evangelina lics"> (> 60 MG/DL)</conten t> Cholesterol -<200 <content [facility] [Mass/volume] in styleCode="Raquel Ayah Serum or Plasma d">Cholesterol Medical </content>176 Center MG/DL<content styleCode="Evangelina lics"> (-<200 MG/DL)</conten t> UNK < 100 Above high normal <content [facility] styleCode="Raquel Ayah d">LDL-Cholest [facility] </content>115 MG/DL H<content styleCode="Evangelina lics"> (< 100 MG/DL)</conten t> ID Date Data Source HematologySpeci.[id number] 05/23/2020 12:02:00 PM EDT [facility] 0-0400 Name Value Range Interpretation Description Data Sup porting Code Source(s) Document(s ) Erythrocyte < 20 <content [facility] sedimentation styleCode="Bold" [facility] rate by >Erythrocyte [facility] method Rate (ESR) </content>15 MM/hr<content styleCode="Itali cs"> (< 20 MM/hr)</content> ID Date Data Source HematologyRou.[id number] 05/23/2020 12:02:00 PM EDT [facility] 0400 Name Value Range Interpretation Description Data Sup porting Code Source(s) Document(s ) Erythrocytes 4.0-5.1 <content [facility] [#/volume] in styleCode="Bold Ayah Blood by ">Red Blood Medical Automated count Cell Count Center </content>4.87 MCUMM<content styleCode="Ital ics"> (4.0-5.1 MCUMM)</content > Hematocrit 36.0-46. <content [facility] [Volume 0 styleCode="Bold Ayah Fraction] of ">Hematocrit Medical Blood by </content>40.1 Center Automated count %<content styleCode="Ital ics"> (36.0-46.0 %)</content> Hemoglobin 12.3-16. <content [facility] [Mass/volume] in 0 styleCode="Bold Ayah Blood ">Hemoglobin Medical </content>12.8 Center G/DL<content styleCode="Ital ics"> (12.3-16.0 G/DL)</content> Leukocytes 4.4-11.0 <content [facility] [#/volume] in styleCode="Bold Ayah Blood by ">White Blood Medical Automated count Cell Count Center </content>7.70 KCUMM<content styleCode="Ital ics"> (4.4-11.0 KCUMM)</content > Erythrocyte mean 32.0-37. Below low normal <content [facility] corpuscular 0 styleCode="Bold Ayah hemoglobin ">Mean Corpus. Medical concentration Hgb Center [Mass/volume] by Concentration Automated count (MCHC) </content>31.9 G/DL L<content styleCode="Ital ics"> (32.0-37.0 G/DL)</content> Erythrocyte mean 80.0-100 <content [facility] corpuscular .0 styleCode="Bold Ayah volume [Entitic ">Mean Medical volume] by Corpuscular Center Automated count Volume </content>82.3 FL<content styleCode="Ital ics"> (80.0-100.0 FL)</content> Erythrocyte mean 26.0-34. <content [facility] corpuscular 0 styleCode="Bold Ayah hemoglobin ">Mean Medical [Entitic mass] Corposcular Center by Automated Hemoglobin count </content>26.3 PG<content styleCode="Ital ics"> (26.0-34.0 PG)</content> Erythrocyte 11.5-14. <content [facility] distribution 5 styleCode="Bold Ayah width [Ratio] by ">Red Cell Medical Automated count Distribution Center Width </content>13.8 %<content styleCode="Ital ics"> (11.5-14.5 %)</content> Platelet mean 8.0-11.0 <content [facility] volume [Entitic styleCode="Bold Ayah volume] in Blood ">Mean Platelet Medical by Automated Volume Center count </content>10.7 FL<content styleCode="Ital ics"> (8.0-11.0 FL)</content> UNK 0 <content [facility] styleCode="Bold Ayah ">Nucleated Red Medical Blood Cell Center </content>0.0 /100<content styleCode="Ital ics"> (0 /100)</content> UNK 0.0 <content [facility] styleCode="Bold Ayah ">Nucleated Red Medical Blood Cell Center Count </content>0.00 KCUMM<content styleCode="Ital ics"> (0.0 KCUMM)</content > Platelets 130-400 <content [facility] [#/volume] in styleCode="Bold Ayah Blood by ">Platelet Medical Automated count Count Center </content>323 KCUMM<content styleCode="Ital ics"> (130-400 KCUMM)</content > ID Date Data Source GFR(Creatinine).[id number] 05/23/2020 12:02:00 PM EDT [facility] 0-0400 Name Value Range Interpretation Code Description Data Carrie rce(s) Supporting Document(s ) UNK > 60 <content [facility]ah styleCode="Bold"> Medical Cent er EGFR </content>122 GFR<content styleCode="Italic s"> (> 60 GFR)</content> ID Date Data Source CHMROUTINECCDA.[id number] 05/23/2020 12:02:00 PM EDT [facility] -0400 Name Value Range Interpretation Description Data Sup porting Code Source(s) Document(s ) UNK 2.3-3.5 <content [facility] Ayah styleCode="Bold Medical ">Globulin Center </content>3.5 G/DL<content styleCode="Ital ics"> (2.3-3.5 G/DL)</content> UNK >= 1.0 <content [facility] styleCode="Bold Medical ">AG Ratio Center </content>1.3 <content styleCode="Ital ics"> (>= 1.0 )</content> UNK 4.2-5.8 <content [facility] Ayah styleCode="Bold Medical ">Hemoglobin Center A1C </content>5.5 %<content styleCode="Ital ics"> (4.2-5.8 %)</content> Protein 6.3-8.2 <content [facility] Ayah [Mass/volum styleCode="Bold Medical e] in Serum ">Total Protein Center or Plasma </content>8.2 G/DL<content styleCode="Ital ics"> (6.3-8.2 G/DL)</content> Lipase 23-300 <content [facility] Ayah [Enzymatic styleCode="Bold Medical activity/vo ">Lipase Center lume] in </content>73 Serum or IU/L<content Plasma styleCode="Ital ics"> (23-300 IU/L)</content> ID Date Data Source [facility].[id number] 05/23/2020 12:02:00 PM EDT [facility] Name Value Range Interpretation Description Data Sup porting Code Source(s) Document(s ) Sodium 137-145 <content [facility] [Moles/volume] in styleCode="Bold"> [facility] Serum or Plasma Sodium Medical </content>138 Center MEQ/L<content styleCode="Italic s"> (137-145 MEQ/L)</content> Carbon dioxide, 22-30 <content [facility] total styleCode="Bold"> Ayah [Moles/volume] in Carbon Dioxide Medical Serum or Plasma </content>25 Center MEQ/L<content styleCode="Italic s"> (22-30 MEQ/L)</content> Chloride 98-107 <content [facility] [Moles/volume] in styleCode="Bold"> [facility] Serum or Plasma Chloride Medical </content>105 Center MEQ/L<content styleCode="Italic s"> (98-107 MEQ/L)</content> Potassium 3.5-5.3 <content [facility] [Moles/volume] in styleCode="Bold"> [facility] Serum or Plasma Potassium Medical </content>4.5 Center MEQ/L<content styleCode="Italic s"> (3.5-5.3 MEQ/L)</content> Glucose 74-106 <content [facility] [Mass/volume] in styleCode="Bold"> Lizandro hs Serum or Plasma Glucose Medical </content>90 Center MG/DL<content styleCode="Italic s"> (74-106 MG/DL)</content> Creatinine 0.5-1.3 <content [facility] [Mass/volume] in styleCode="Bold"> Lizandro hs Serum or Plasma Creatinine Medical </content>0.6 Center MG/DL<content styleCode="Italic s"> (0.5-1.3 MG/DL)</content> UNK 7-17 <content [facility] styleCode="Bold"> Ayah BUN </content>9 Medical MG/DL<content Center styleCode="Italic s"> (7-17 MG/DL)</content> Calcium 8.4-10. <content [facility] [Mass/volume] in 2 styleCode="Bold"> Lizandro hs Serum or Plasma Calcium Medical </content>9.4 Center MG/DL<content styleCode="Italic s"> (8.4-10.2 MG/DL)</content> UNK > 60 <content [facility] styleCode="Bold"> Ayah EGFR Medical </content>122 Center GFR<content styleCode="Italic s"> (> 60 GFR)</content> Aspartate 14-36 Above high <content [facility] aminotransferase normal styleCode="Bold"> Lizandro hs [Enzymatic Aspartate Medical activity/volume] Aminotransferase Center in Serum or Plasma (AST) </content>38 IU/L H<content styleCode="Italic s"> (14-36 IU/L)</content> Alanine 7-30 <content [facility] aminotransferase styleCode="Bold"> Lizandro hs [Enzymatic Alanine Medical activity/volume] Aminotransferase Center in Serum or Plasma (ALT) </content>30 IU/L<content styleCode="Italic s"> (7-30 IU/L)</content> Alkaline 38-126 <content [facility] phosphatase styleCode="Bold"> Ayah [Enzymatic Alkaline Medical activity/volume] Phosphatase (ALP) Cente r in Serum or Plasma </content>78 IU/L<content styleCode="Italic s"> (38-126 IU/L)</content> Albumin 3.5-5.0 <content [facility] [Mass/volume] in styleCode="Bold"> Lizandro hs Serum or Plasma Albumin Medical </content>4.7 Center G/DL<content styleCode="Italic s"> (3.5-5.0 G/DL)</content> Bilirubin.total 0.2-1.3 <content [facility] [Mass/volume] in styleCode="Bold"> Lizandro hs Serum or Plasma Bilirubin Total Medical </content>0.6 Center MG/DL<content styleCode="Italic s"> (0.2-1.3 MG/DL)</content> ID Date Data Source Liver 05/23/2019 12:29:00 PM EDT [facility] Profile.[id number] Name Value Range Interpretation Description Data Sup porting Code Source(s) Document(s ) Alkaline 38-126 <content [facility] phosphatase styleCode="Bold"> Ayah [Enzymatic Alkaline Medical activity/volume] Phosphatase (ALP) Cente r in Serum or Plasma </content>79 IU/L<content styleCode="Italic s"> (38-126 IU/L)</content> Aspartate 14-36 <content [facility] aminotransferase styleCode="Bold"> Lizandro hs [Enzymatic Aspartate Medical activity/volume] Aminotransferase Center in Serum or Plasma (AST) </content>23 IU/L<content styleCode="Italic s"> (14-36 IU/L)</content> Alanine 7-30 <content [facility] aminotransferase styleCode="Bold"> Lizandro hs [Enzymatic Alanine Medical activity/volume] Aminotransferase Center in Serum or Plasma (ALT) </content>17 IU/L<content styleCode="Italic s"> (7-30 IU/L)</content> Albumin 3.5-5.0 <content [facility] [Mass/volume] in styleCode="Bold"> Lizandro hs Serum or Plasma Albumin Medical </content>4.2 Center G/DL<content styleCode="Italic s"> (3.5-5.0 G/DL)</content> Bilirubin.total 0.2-1.3 <content [facility] [Mass/volume] in styleCode="Bold"> Lizandro hs Serum or Plasma Bilirubin Total Medical </content>0.5 Center MG/DL<content styleCode="Italic s"> (0.2-1.3 MG/DL)</content> ID Date Data Source HematologySpeci.[id number] 05/23/2019 12:29:00 PM EDT [facility] 0-0400 Name Value Range Interpretation Description Data Sup porting Code Source(s) Document(s ) Erythrocyte < 20 Above high normal <content [facility] sedimentation styleCode="Bold" [facility] rate by >[facility] ([facility]R) </content>24 MM/hr H<content styleCode="Itali cs"> (< 20 MM/hr)</content> ID Date Data Source HematologyRou.[id number] 05/23/2019 12:29:00 PM EDT [facility] 0400 Name Value Range Interpretation Description Data Sup porting Code Source(s) Document(s ) Leukocytes 4.4-11.0 <content [facility] [#/volume] in styleCode="Bold [facility] Blood by ">White Blood Medical Automated count Cell Count Center </content>8.99 KCUMM<content styleCode="Ital ics"> (4.4-11.0 KCUMM)</content > Erythrocytes 4.0-5.1 <content [facility] [#/volume] in styleCode="Bold Ayah Blood by ">Red Blood Medical Automated count Cell Count Center </content>5.01 MCUMM<content styleCode="Ital ics"> (4.0-5.1 MCUMM)</content > Hemoglobin 12.3-16. <content [facility] [Mass/volume] in 0 styleCode="Bold Ayah Blood ">Hemoglobin Medical </content>12.3 Center G/DL<content styleCode="Ital ics"> (12.3-16.0 G/DL)</content> Hematocrit 36.0-46. <content [facility] [Volume 0 styleCode="Bold Ayah Fraction] of ">Hematocrit Medical Blood by </content>37.8 Center Automated count %<content styleCode="Ital ics"> (36.0-46.0 %)</content> Erythrocyte mean 80.0-100 <content [facility] corpuscular .0 styleCode="Bold Ayah volume [Entitic ">Mean Medical volume] by Corpuscular Center Automated count Volume </content>75.4 FL<content styleCode="Ital ics"> (80.0-100.0 FL)</content> Erythrocyte mean 32.0-37. <content [facility] corpuscular 0 styleCode="Bold Ayah hemoglobin ">Mean Corpus. Medical concentration Hgb Center [Mass/volume] by Concentration Automated count (MCHC) </content>32.5 G/DL<content styleCode="Ital ics"> (32.0-37.0 G/DL)</content> Erythrocyte mean 26.0-34. Below low normal <content [facility] corpuscular 0 styleCode="Bold Ayah hemoglobin ">Mean Medical [Entitic mass] Corposcular Center by Automated Hemoglobin count </content>24.6 PG L<content styleCode="Ital ics"> (26.0-34.0 PG)</content> Platelets 130-400 <content [facility] [#/volume] in styleCode="Bold Ayah Blood by ">Platelet Medical Automated count Count Center </content>313 KCUMM<content styleCode="Ital ics"> (130-400 KCUMM)</content > Erythrocyte 11.5-14. Above high <content [facility] distribution 5 normal styleCode="Bold Ayah width [Ratio] by ">Red Cell Medical Automated count Distribution Center Width </content>15.7 % H<content styleCode="Ital ics"> (11.5-14.5 %)</content> UNK 0 <content [facility] styleCode="Bold Ayah ">Nucleated Red Medical Blood Cell Center </content>0.0 /100<content styleCode="Ital ics"> (0 /100)</content> Platelet mean 8.0-11.0 <content [facility] volume [Entitic styleCode="Bold Ayah volume] in Blood ">Mean Platelet Medical by Automated Volume Center count </content>10.5 FL<content styleCode="Ital ics"> (8.0-11.0 FL)</content> UNK 0.0 <content [facility] styleCode="Bold Ayah ">Nucleated Red Medical Blood Cell Center Count </content>0.00 KCUMM<content styleCode="Ital ics"> (0.0 KCUMM)</content > ID Date Data Source GFR(Creatinine).[id number] 05/23/2019 12:29:00 PM EDT [facility] 0-0400 Name Value Range Interpretation Code Description Data Carrie rce(s) Supporting Document(s ) UNK > 60 <content [facility] styleCode="Bold"> Medical Cent er EGFR </content>122 GFR<content styleCode="Italic s"> (> 60 GFR)</content> ID Date Data Source CHMROUTINECCDA.[id number] 05/23/2019 12:29:00 PM EDT [facility] -0400 Name Value Range Interpretation Description Data Sup porting Code Source(s) Document(s ) UNK >= 1.0 <content [facility]ah styleCode="Bold Medical ">AG Ratio Center </content>1.2 <content styleCode="Ital ics"> (>= 1.0 )</content> UNK 2.3-3.5 Above high normal <content [place] s styleCode="Bold Medical ">Globulin Center </content>3.6 G/DL H<content styleCode="Ital ics"> (2.3-3.5 G/DL)</content> Protein 6.3-8.2 <content [facility] Ayah [Mass/volum styleCode="Bold Medical e] in Serum ">Total Protein Center or Plasma </content>7.8 G/DL<content styleCode="Ital ics"> (6.3-8.2 G/DL)</content> Lipase 23-300 <content [facility] Ayah [Enzymatic styleCode="Bold Medical activity/vo ">Lipase Center lume] in </content>89 Serum or IU/L<content Plasma styleCode="Ital ics"> (23-300 IU/L)</content> ID Date Data Source [facility].[id number] 05/23/2019 12:29:00 PM EDT [facility] Name Value Range Interpretation Description Data Sup porting Code Source(s) Document(s ) Sodium 137-145 <content [facility] [Moles/volume] in styleCode="Bold"> [facility] Serum or Plasma Sodium Medical </content>141 Center MEQ/L<content styleCode="Italic s"> (137-145 MEQ/L)</content> Chloride 98-107 <content [facility] [Moles/volume] in styleCode="Bold"> Justin banner Serum or Plasma Chloride Medical </content>105 Center MEQ/L<content styleCode="Italic s"> (98-107 MEQ/L)</content> Potassium 3.5-5.3 <content [facility] [Moles/volume] in styleCode="Bold"> Justin banner Serum or Plasma Potassium Medical </content>4.3 Center MEQ/L<content styleCode="Italic s"> (3.5-5.3 MEQ/L)</content> Creatinine 0.5-1.3 <content [facility] [Mass/volume] in styleCode="Bold"> Lizandro hs Serum or Plasma Creatinine Medical </content>0.6 Center MG/DL<content styleCode="Italic s"> (0.5-1.3 MG/DL)</content> Glucose 74-106 <content [facility] [Mass/volume] in styleCode="Bold"> Lizandro hs Serum or Plasma Glucose Medical </content>81 Center MG/DL<content styleCode="Italic s"> (74-106 MG/DL)</content> Carbon dioxide, 22-30 <content [facility] total styleCode="Bold"> Ayah [Moles/volume] in Carbon Dioxide Medical Serum or Plasma </content>26 Center MEQ/L<content styleCode="Italic s"> (22-30 MEQ/L)</content> UNK 7-17 Below low <content [facility] normal styleCode="Bold"> Ayah BUN </content>6 Medical MG/DL L<content Center styleCode="Italic s"> (7-17 MG/DL)</content> UNK > 60 <content [facility] styleCode="Bold"> Ayah EGFR Medical </content>122 Center GFR<content styleCode="Italic s"> (> 60 GFR)</content> Calcium 8.4-10. <content [facility] [Mass/volume] in 2 styleCode="Bold"> Lizandro hs Serum or Plasma Calcium Medical </content>9.3 Center MG/DL<content styleCode="Italic s"> (8.4-10.2 MG/DL)</content> Aspartate 14-36 <content [facility] aminotransferase styleCode="Bold"> Lizandro hs [Enzymatic Aspartate Medical activity/volume] Aminotransferase Center in Serum or Plasma (AST) </content>23 IU/L<content styleCode="Italic s"> (14-36 IU/L)</content> Alkaline 38-126 <content [facility] phosphatase styleCode="Bold"> Ayah [Enzymatic Alkaline Medical activity/volume] Phosphatase (ALP) Cente r in Serum or Plasma </content>79 IU/L<content styleCode="Italic s"> (38-126 IU/L)</content> Alanine 7-30 <content [facility] aminotransferase styleCode="Bold"> Lizandro hs [Enzymatic Alanine Medical activity/volume] Aminotransferase Center in Serum or Plasma (ALT) </content>17 IU/L<content styleCode="Italic s"> (7-30 IU/L)</content> Albumin 3.5-5.0 <content [facility] [Mass/volume] in styleCode="Bold"> Lizandro hs Serum or Plasma Albumin Medical </content>4.2 Center G/DL<content styleCode="Italic s"> (3.5-5.0 G/DL)</content> Bilirubin.total 0.2-1.3 <content [facility] [Mass/volume] in styleCode="Bold"> Lizandro hs Serum or Plasma Bilirubin Total Medical </content>0.5 Center MG/DL<content styleCode="Italic s"> (0.2-1.3 MG/DL)</content> ID Date Data Source Liver 05/16/2019 07:00:00 PM EDT [facility] Profile.[id number] Name Value Range Interpretation Description Data Sup porting Code Source(s) Document(s ) Alkaline 38-126 <content [facility] phosphatase styleCode="Bold"> Ayah [Enzymatic Alkaline Medical activity/volume] Phosphatase (ALP) Cente r in Serum or Plasma </content>61 IU/L<content styleCode="Italic s"> (38-126 IU/L)</content> Aspartate 14-36 <content [facility] aminotransferase styleCode="Bold"> Lizandro hs [Enzymatic Aspartate Medical activity/volume] Aminotransferase Center in Serum or Plasma (AST) </content>20 IU/L<content styleCode="Italic s"> (14-36 IU/L)</content> Alanine 7-30 <content [facility] aminotransferase styleCode="Bold"> Lizandro hs [Enzymatic Alanine Medical activity/volume] Aminotransferase Center in Serum or Plasma (ALT) </content>19 IU/L<content styleCode="Italic s"> (7-30 IU/L)</content> Albumin 3.5-5.0 <content [facility] [Mass/volume] in styleCode="Bold"> Lizandro hs Serum or Plasma Albumin Medical </content>4.3 Center G/DL<content styleCode="Italic s"> (3.5-5.0 G/DL)</content> UNK 0.0-0.3 <content [facility] styleCode="Bold"> Ayah Bilirubin, Direct Medical </content>< 0.2 Center MG/DL<content styleCode="Italic s"> (0.0-0.3 MG/DL)</content> Bilirubin.total 0.2-1.3 <content [facility] [Mass/volume] in styleCode="Bold"> Lizandro hs Serum or Plasma Bilirubin Total Medical </content>0.3 Center MG/DL<content styleCode="Italic s"> (0.2-1.3 MG/DL)</content> ID Date Data Source HematologyRou.[id number] 05/16/2019 07:00:00 PM EDT [facility] 0400 Name Value Range Interpretation Description Data Sup porting Code Source(s) Document(s ) Leukocytes 4.4-11.0 <content [facility] [#/volume] in styleCode="Bold Ayah Blood by ">White Blood Medical Automated count Cell Count Center </content>9.68 KCUMM<content styleCode="Ital ics"> (4.4-11.0 KCUMM)</content > Hematocrit 36.0-46. <content [facility] [Volume 0 styleCode="Bold [facility] Fraction] of ">Hematocrit Medical Blood by </content>38.6 Center Automated count %<content styleCode="Ital ics"> (36.0-46.0 %)</content> Erythrocytes 4.0-5.1 <content [facility] [#/volume] in styleCode="Bold Ayah Blood by ">Red Blood Medical Automated count Cell Count Center </content>5.07 MCUMM<content styleCode="Ital ics"> (4.0-5.1 MCUMM)</content > Erythrocyte mean 80.0-100 <content [facility] corpuscular .0 styleCode="Bold Ayah volume [Entitic ">Mean Medical volume] by Corpuscular Center Automated count Volume </content>76.1 FL<content styleCode="Ital ics"> (80.0-100.0 FL)</content> Hemoglobin 12.3-16. Below low normal <content [facility] [Mass/volume] in 0 styleCode="Bold Ayah Blood ">Hemoglobin Medical </content>12.2 Center G/DL L<content styleCode="Ital ics"> (12.3-16.0 G/DL)</content> Platelets 130-400 <content [facility] [#/volume] in styleCode="Bold Ayah Blood by ">Platelet Medical Automated count Count Center </content>295 KCUMM<content styleCode="Ital ics"> (130-400 KCUMM)</content > Erythrocyte mean 32.0-37. Below low normal <content [facility] corpuscular 0 styleCode="Bold Ayah hemoglobin ">Mean Corpus. Medical concentration Hgb Center [Mass/volume] by Concentration Automated count (MCHC) </content>31.6 G/DL L<content styleCode="Ital ics"> (32.0-37.0 G/DL)</content> Erythrocyte mean 26.0-34. Below low normal <content [facility] corpuscular 0 styleCode="Bold Ayah hemoglobin ">Mean Medical [Entitic mass] Corposcular Center by Automated Hemoglobin count </content>24.1 PG L<content styleCode="Ital ics"> (26.0-34.0 PG)</content> Erythrocyte 11.5-14. Above high <content [facility] distribution 5 normal styleCode="Bold Ayah width [Ratio] by ">Red Cell Medical Automated count Distribution Center Width </content>15.7 % H<content styleCode="Ital ics"> (11.5-14.5 %)</content> UNK 0.0 <content [facility] styleCode="Bold Ayah ">Nucleated Red Medical Blood Cell Center Count </content>0.00 KCUMM<content styleCode="Ital ics"> (0.0 KCUMM)</content > UNK 0 <content [facility] styleCode="Bold Ayah ">Nucleated Red Medical Blood Cell Center </content>0.0 /100<content styleCode="Ital ics"> (0 /100)</content> Platelet mean 8.0-11.0 <content [facility] volume [Entitic styleCode="Bold Ayah volume] in Blood ">Mean Platelet Medical by Automated Volume Center count </content>10.6 FL<content styleCode="Ital ics"> (8.0-11.0 FL)</content> ID Date Data Source GFR(Creatinine).[id number] 05/16/2019 07:00:00 PM EDT [facility] 0-0400 Name Value Range Interpretation Code Description Data Carrie rce(s) Supporting Document(s ) UNK > 60 <content [facility] styleCode="Bold"> Medical Cent er EGFR </content>123 GFR<content styleCode="Italic s"> (> 60 GFR)</content> ID Date Data Source SAVIMROUTZORACCLILO.[id number] 05/16/2019 07:00:00 PM EDT [facility] -0400 Name Value Range Interpretation Code Description Data Carrie rce(s) Supporting Document(s ) UNK 30-110 <content [facility] [place] styleCode="Bold"> Medical Cent er Amylase </content>70 IU/L<content styleCode="Italic s"> (30-110 IU/L)</content> ID Date Data Source [facility].[id number] 05/16/2019 07:00:00 PM EDT [facility] Name Value Range Interpretation Description Data Sup porting Code Source(s) Document(s ) Potassium 3.5-5.3 <content [facility] [Moles/volume] in styleCode="Bold"> Justin banner Serum or Plasma Potassium Medical </content>3.9 Center MEQ/L<content styleCode="Italic s"> (3.5-5.3 MEQ/L)</content> Chloride 98-107 <content [facility] [Moles/volume] in styleCode="Bold"> Justin banner Serum or Plasma Chloride Medical </content>106 Center MEQ/L<content styleCode="Italic s"> (98-107 MEQ/L)</content> Carbon dioxide, 22-30 <content [facility] total styleCode="Bold"> Ayah [Moles/volume] in Carbon Dioxide Medical Serum or Plasma </content>26 Center MEQ/L<content styleCode="Italic s"> (22-30 MEQ/L)</content> Sodium 137-145 <content [facility] [Moles/volume] in styleCode="Bold"> Justin banner Serum or Plasma Sodium Medical </content>142 Center MEQ/L<content styleCode="Italic s"> (137-145 MEQ/L)</content> UNK 7-17 <content [facility] styleCode="Bold"> Ayah BUN </content>9 Medical MG/DL<content Center styleCode="Italic s"> (7-17 MG/DL)</content> Glucose 74-106 <content [facility] [Mass/volume] in styleCode="Bold"> Lizandro hs Serum or Plasma Glucose Medical </content>86 Center MG/DL<content styleCode="Italic s"> (74-106 MG/DL)</content> Creatinine 0.5-1.3 <content [facility] [Mass/volume] in styleCode="Bold"> Lizandro hs Serum or Plasma Creatinine Medical </content>0.6 Center MG/DL<content styleCode="Italic s"> (0.5-1.3 MG/DL)</content> Calcium 8.4-10. <content [facility] [Mass/volume] in 2 styleCode="Bold"> Lizandro hs Serum or Plasma Calcium Medical </content>9.6 Center MG/DL<content styleCode="Italic s"> (8.4-10.2 MG/DL)</content> Alanine 7-30 <content [facility] aminotransferase styleCode="Bold"> Lizandro hs [Enzymatic Alanine Medical activity/volume] Aminotransferase Center in Serum or Plasma (ALT) </content>19 IU/L<content styleCode="Italic s"> (7-30 IU/L)</content> Bilirubin.total 0.2-1.3 <content [facility] [Mass/volume] in styleCode="Bold"> Lizandro hs Serum or Plasma Bilirubin Total Medical </content>0.3 Center MG/DL<content styleCode="Italic s"> (0.2-1.3 MG/DL)</content> Alkaline 38-126 <content [facility] phosphatase styleCode="Bold"> Ayah [Enzymatic Alkaline Medical activity/volume] Phosphatase (ALP) Cente r in Serum or Plasma </content>61 IU/L<content styleCode="Italic s"> (38-126 IU/L)</content> Aspartate 14-36 <content [facility] aminotransferase styleCode="Bold"> Lizandro hs [Enzymatic Aspartate Medical activity/volume] Aminotransferase Center in Serum or Plasma (AST) </content>20 IU/L<content styleCode="Italic s"> (14-36 IU/L)</content> UNK > 60 <content [facility] styleCode="Bold"> Ayah EGFR Medical </content>123 Center GFR<content styleCode="Italic s"> (> 60 GFR)</content> Albumin 3.5-5.0 <content [facility] [Mass/volume] in styleCode="Bold"> Lizandro hs Serum or Plasma Albumin Medical </content>4.3 Center G/DL<content styleCode="Italic s"> (3.5-5.0 G/DL)</content> ID Date Data Source Liver 05/06/2019 05:40:00 AM EDT [facility] Profile.[id number] Name Value Range Interpretation Description Data Sup porting Code Source(s) Document(s ) Alanine 7-30 <content [facility] aminotransferase styleCode="Bold"> Lizandro hs [Enzymatic Alanine Medical activity/volume] Aminotransferase Center in Serum or Plasma (ALT) </content>13 IU/L<content styleCode="Italic s"> (7-30 IU/L)</content> Alkaline 38-126 <content [facility] phosphatase styleCode="Bold"> Ayah [Enzymatic Alkaline Medical activity/volume] Phosphatase (ALP) Cente r in Serum or Plasma </content>70 IU/L<content styleCode="Italic s"> (38-126 IU/L)</content> Aspartate 14-36 <content [facility] aminotransferase styleCode="Bold"> Lizandro hs [Enzymatic Aspartate Medical activity/volume] Aminotransferase Center in Serum or Plasma (AST) </content>15 IU/L<content styleCode="Italic s"> (14-36 IU/L)</content> Albumin 3.5-5.0 <content [facility] [Mass/volume] in styleCode="Bold"> Lizandro hs Serum or Plasma Albumin Medical </content>4.1 Center G/DL<content styleCode="Italic s"> (3.5-5.0 G/DL)</content> Bilirubin.total 0.2-1.3 <content [facility] [Mass/volume] in styleCode="Bold"> Lizandro hs Serum or Plasma Bilirubin Total Medical </content>0.6 Center MG/DL<content styleCode="Italic s"> (0.2-1.3 MG/DL)</content> ID Date Data Source HematologyRou.[id number] 05/06/2019 05:40:00 AM EDT [facility] 0400 Name Value Range Interpretation Description Data Sup porting Code Source(s) Document(s ) Leukocytes 4.4-11.0 <content [facility] [#/volume] in styleCode="Bold Ayah Blood by ">White Blood Medical Automated count Cell Count Center </content>9.15 KCUMM<content styleCode="Ital ics"> (4.4-11.0 KCUMM)</content > Hematocrit 36.0-46. <content [facility] [Volume 0 styleCode="Bold Ayah Fraction] of ">Hematocrit Medical Blood by </content>37.7 Center Automated count %<content styleCode="Ital ics"> (36.0-46.0 %)</content> Hemoglobin 12.3-16. Below low normal <content [facility] [Mass/volume] in 0 styleCode="Bold Ayah Blood ">Hemoglobin Medical </content>12.0 Center G/DL L<content styleCode="Ital ics"> (12.3-16.0 G/DL)</content> Erythrocytes 4.0-5.1 <content [facility] [#/volume] in styleCode="Bold Ayah Blood by ">Red Blood Medical Automated count Cell Count Center </content>5.00 MCUMM<content styleCode="Ital ics"> (4.0-5.1 MCUMM)</content > Erythrocyte mean 80.0-100 <content [facility] corpuscular .0 styleCode="Bold Ayah volume [Entitic ">Mean Medical volume] by Corpuscular Center Automated count Volume </content>75.4 FL<content styleCode="Ital ics"> (80.0-100.0 FL)</content> Erythrocyte 11.5-14. Above high <content [facility] distribution 5 normal styleCode="Bold [facility] width [Ratio] by ">Red Cell Medical Automated count Distribution Center Width </content>15.2 % H<content styleCode="Ital ics"> (11.5-14.5 %)</content> Erythrocyte mean 32.0-37. Below low normal <content [facility] corpuscular 0 styleCode="Bold Ayah hemoglobin ">Mean Corpus. Medical concentration Hgb Center [Mass/volume] by Concentration Automated count (MCHC) </content>31.8 G/DL L<content styleCode="Ital ics"> (32.0-37.0 G/DL)</content> Erythrocyte mean 26.0-34. Below low normal <content [facility] corpuscular 0 styleCode="Bold Ayah hemoglobin ">Mean Medical [Entitic mass] Corposcular Center by Automated Hemoglobin count </content>24.0 PG L<content styleCode="Ital ics"> (26.0-34.0 PG)</content> Platelet mean 8.0-11.0 <content [facility] volume [Entitic styleCode="Bold Ayah volume] in Blood ">Mean Platelet Medical by Automated Volume Center count </content>10.4 FL<content styleCode="Ital ics"> (8.0-11.0 FL)</content> Neutrophils 36-66 Above high <content [facility] [#/volume] in normal styleCode="Bold Ayah Blood by ">Neutrophil Medical Automated count </content>68.0 Center % H<content styleCode="Ital ics"> (36-66 %)</content> UNK 1.6-7.3 <content [facility] styleCode="Bold Ayah ">Neutrophil Medical Count Center </content>6.22 KCUMM<content styleCode="Ital ics"> (1.6-7.3 KCUMM)</content > Platelets 130-400 <content [facility] [#/volume] in styleCode="Bold Ayah Blood by ">Platelet Medical Automated count Count Center </content>330 KCUMM<content styleCode="Ital ics"> (130-400 KCUMM)</content > UNK 0.2-0.9 <content [facility] styleCode="Bold Ayah ">Monocyte Medical Count Center </content>0.69 KCUMM<content styleCode="Ital ics"> (0.2-0.9 KCUMM)</content > Monocytes 3.0-10.0 <content [facility] [#/volume] in styleCode="Bold Ayah Blood by ">Monocyte Medical Automated count </content>7.5 Center %<content styleCode="Ital ics"> (3.0-10.0 %)</content> Lymphocytes 24.0-44. Below low normal <content [facility] [#/volume] in 0 styleCode="Bold Ayah Blood by ">Lymphocyte Medical Automated count </content>19.9 Center % L<content styleCode="Ital ics"> (24.0-44.0 %)</content> UNK 1.0-4.8 <content [facility] styleCode="Bold Ayah ">Lymphocyte Medical Count Center </content>1.82 KCUMM<content styleCode="Ital ics"> (1.0-4.8 KCUMM)</content > UNK 0.0-0.3 <content [facility] styleCode="Bold Ayah ">Basophil Medical Count Center </content>0.06 KCUMM<content styleCode="Ital ics"> (0.0-0.3 KCUMM)</content > UNK 0.0-0.6 <content [facility] styleCode="Bold Ayah ">Eosinophil Medical Count Center </content>0.32 KCUMM<content styleCode="Ital ics"> (0.0-0.6 KCUMM)</content > Basophils 0.0-1.0 <content [facility] [#/volume] in styleCode="Bold Ayah Blood by ">Basophil Medical Automated count </content>0.7 Center %<content styleCode="Ital ics"> (0.0-1.0 %)</content> Eosinophils 0-5.0 <content [facility] [#/volume] in styleCode="Bold Ayah Blood by ">Eosinophil Medical Automated count </content>3.5 Center %<content styleCode="Ital ics"> (0-5.0 %)</content> UNK 0.0 <content [facility] styleCode="Bold Ayah ">Nucleated Red Medical Blood Cell Center Count </content>0.00 KCUMM<content styleCode="Ital ics"> (0.0 KCUMM)</content > UNK 0 <content [facility] styleCode="Bold Ayah ">Nucleated Red Medical Blood Cell Center </content>0.0 /100<content styleCode="Ital ics"> (0 /100)</content> UNK 0-0.1 <content [facility] styleCode="Bold Ayah ">Immature Medical Granulocyte Center Count </content>0.04 KCUMM<content styleCode="Ital ics"> (0-0.1 KCUMM)</content > UNK < 1 <content [facility] styleCode="Bold Ayah ">Immature Medical Granulocyte Center Ratio </content>0.4 %<content styleCode="Ital ics"> (< 1 %)</content> ID Date Data Source GFR(Creatinine).[id number] 05/06/2019 05:40:00 AM EDT [facility] 0-0400 Name Value Range Interpretation Code Description Data Carrie rce(s) Supporting Document(s ) UNK > 60 <content [facility] Ayah styleCode="Bold"> Medical Cent er EGFR </content>123 GFR<content styleCode="Italic s"> (> 60 GFR)</content> ID Date Data Source CHMROUTINECCDA.[id number] 05/06/2019 05:40:00 AM EDT [facility] -0400 Name Value Range Interpretation Description Data Sup porting Code Source(s) Document(s ) UNK 2.3-3.5 <content [facility] styleCode="Raquel Ayah d">Globulin Medical </content>3.2 Center G/DL<content styleCode="Evangelina lics"> (2.3-3.5 G/DL)</content > UNK >= 1.0 <content [facility] styleCode="Raquel Ayah d">AG Ratio Medical </content>1.3 Center <content styleCode="Evangelina lics"> (>= 1.0 )</content> Magnesium 1.6-2.3 <content [facility] [Mass/volume] styleCode="Raquel Ayah in Serum or d">Magnesium Medical Plasma </content>2.1 Center MG/DL<content styleCode="Evangelina lics"> (1.6-2.3 MG/DL)</conten t> Protein 6.3-8.2 <content [facility] [Mass/volume] styleCode="Raquel Ayah in Serum or d">Total Medical Plasma Protein Center </content>7.3 G/DL<content styleCode="Evangelina lics"> (6.3-8.2 G/DL)</content > Phosphate 2.5-4.5 <content [facility] [Mass/volume] styleCode="Raquel Ayah in Serum or d">Phosphorus Medical Plasma </content>3.4 Center MG/DL<content styleCode="Evangelina lics"> (2.5-4.5 MG/DL)</conten t> ID Date Data Source [facility].[id number] 05/06/2019 05:40:00 AM EDT [facility] Name Value Range Interpretation Description Data Sup porting Code Source(s) Document(s ) Sodium 137-145 <content [facility] [Moles/volume] in styleCode="Bold"> Justin banner Serum or Plasma Sodium Medical </content>140 Center MEQ/L<content styleCode="Italic s"> (137-145 MEQ/L)</content> Creatinine 0.5-1.3 <content [facility] [Mass/volume] in styleCode="Bold"> Lizandro hs Serum or Plasma Creatinine Medical </content>0.6 Center MG/DL<content styleCode="Italic s"> (0.5-1.3 MG/DL)</content> Carbon dioxide, 22-30 <content [facility] total styleCode="Bold"> Ayah [Moles/volume] in Carbon Dioxide Medical Serum or Plasma </content>24 Center MEQ/L<content styleCode="Italic s"> (22-30 MEQ/L)</content> Potassium 3.5-5.3 <content [facility] [Moles/volume] in styleCode="Bold"> Justin banner Serum or Plasma Potassium Medical </content>4.4 Center MEQ/L<content styleCode="Italic s"> (3.5-5.3 MEQ/L)</content> Chloride 98-107 <content [facility] [Moles/volume] in styleCode="Bold"> Justin phs Serum or Plasma Chloride Medical </content>106 Center MEQ/L<content styleCode="Italic s"> (98-107 MEQ/L)</content> UNK 7-17 <content Saint styleCode="Bold"> Ayah BUN </content>9 Medical MG/DL<content Center styleCode="Italic s"> (7-17 MG/DL)</content> Aspartate 14-36 <content [facility] aminotransferase styleCode="Bold"> Lizandro hs [Enzymatic Aspartate Medical activity/volume] Aminotransferase Center in Serum or Plasma (AST) </content>15 IU/L<content styleCode="Italic s"> (14-36 IU/L)</content> Glucose 74-106 <content [facility] [Mass/volume] in styleCode="Bold"> Lizandro hs Serum or Plasma Glucose Medical </content>86 Center MG/DL<content styleCode="Italic s"> (74-106 MG/DL)</content> UNK > 60 <content [facility] styleCode="Bold"> Ayah EGFR Medical </content>123 Center GFR<content styleCode="Italic s"> (> 60 GFR)</content> Alanine 7-30 <content [facility] aminotransferase styleCode="Bold"> Lizandro hs [Enzymatic Alanine Medical activity/volume] Aminotransferase Center in Serum or Plasma (ALT) </content>13 IU/L<content styleCode="Italic s"> (7-30 IU/L)</content> Calcium 8.4-10. <content [facility] [Mass/volume] in 2 styleCode="Bold"> Lizandro hs Serum or Plasma Calcium Medical </content>9.2 Center MG/DL<content styleCode="Italic s"> (8.4-10.2 MG/DL)</content> Alkaline 38-126 <content [facility] phosphatase styleCode="Bold"> Ayah [Enzymatic Alkaline Medical activity/volume] Phosphatase (ALP) Cente r in Serum or Plasma </content>70 IU/L<content styleCode="Italic s"> (38-126 IU/L)</content> Albumin 3.5-5.0 <content [facility] [Mass/volume] in styleCode="Bold"> Lizandro hs Serum or Plasma Albumin Medical </content>4.1 Center G/DL<content styleCode="Italic s"> (3.5-5.0 G/DL)</content> Bilirubin.total 0.2-1.3 <content [facility] [Mass/volume] in styleCode="Bold"> Lizandro hs Serum or Plasma Bilirubin Total Medical </content>0.6 Center MG/DL<content styleCode="Italic s"> (0.2-1.3 MG/DL)</content> ID Date Data Source Liver 05/05/2019 05:17:00 AM EDT [facility] Profile.[id number] Name Value Range Interpretation Description Data Sup porting Code Source(s) Document(s ) Aspartate 14-36 <content [facility] aminotransferase styleCode="Bold"> Lizandro hs [Enzymatic Aspartate Medical activity/volume] Aminotransferase Center in Serum or Plasma (AST) </content>17 IU/L<content styleCode="Italic s"> (14-36 IU/L)</content> Albumin 3.5-5.0 <content [facility] [Mass/volume] in styleCode="Bold"> Lizandro hs Serum or Plasma Albumin Medical </content>3.7 Center G/DL<content styleCode="Italic s"> (3.5-5.0 G/DL)</content> Alanine 7-30 <content [facility] aminotransferase styleCode="Bold"> Lizandro hs [Enzymatic Alanine Medical activity/volume] Aminotransferase Center in Serum or Plasma (ALT) </content>15 IU/L<content styleCode="Italic s"> (7-30 IU/L)</content> Bilirubin.total 0.2-1.3 <content [facility] [Mass/volume] in styleCode="Bold"> Lizandro hs Serum or Plasma Bilirubin Total Medical </content>0.5 Center MG/DL<content styleCode="Italic s"> (0.2-1.3 MG/DL)</content> Alkaline 38-126 <content [facility] phosphatase styleCode="Bold"> Ayah [Enzymatic Alkaline Medical activity/volume] Phosphatase (ALP) Cente r in Serum or Plasma </content>67 IU/L<content styleCode="Italic s"> (38-126 IU/L)</content> ID Date Data Source LIPID.[id number] 05/05/2019 05:17:00 AM EDT [facility] Name Value Range Interpretation Description Data Sup porting Code Source(s) Document(s ) Triglyceride < 150 Above high normal <content Saint [Mass/volume] in styleCode="Raquel Ayah Serum or Plasma d">Triglycerid [facility] Center </content>153 MG/DL H<content styleCode="Evangelina lics"> (< 150 MG/DL)</conten t> UNK < 100 <content Saint styleCode="Raquel Ayah d">LDL-Cholest [facility] [place] </content>92 MG/DL<content styleCode="Evangelina lics"> (< 100 MG/DL)</conten t> UNK > 60 Below low normal <content Saint styleCode="Raquel Ayah d">HDL- Medical Cholesterol Center </content>27 MG/DL L<content styleCode="Evangelina lics"> (> 60 MG/DL)</conten t> Cholesterol -<200 <content [facility] [Mass/volume] in styleCode="Raquel Ayah Serum or Plasma d">Cholesterol Medical </content>150 Center MG/DL<content styleCode="Evangelina lics"> (-<200 MG/DL)</conten t> ID Date Data Source HematologyRou.[id number] 05/05/2019 05:17:00 AM EDT [facility] 0400 Name Value Range Interpretation Description Data Sup porting Code Source(s) Document(s ) Leukocytes 4.4-11.0 <content Saint [#/volume] in styleCode="Bold Ayah Blood by ">White Blood Medical Automated count Cell Count Center </content>8.47 KCUMM<content styleCode="Ital ics"> (4.4-11.0 KCUMM)</content > Erythrocyte mean 80.0-100 <content [facility] corpuscular .0 styleCode="Bold Ayah volume [Entitic ">Mean Medical volume] by Corpuscular Center Automated count Volume </content>76.6 FL<content styleCode="Ital ics"> (80.0-100.0 FL)</content> Hemoglobin 12.3-16. Below low normal <content [facility] [Mass/volume] in 0 styleCode="Bold Ayah Blood ">Hemoglobin Medical </content>11.5 Center G/DL L<content styleCode="Ital ics"> (12.3-16.0 G/DL)</content> Hematocrit 36.0-46. <content [facility] [Volume 0 styleCode="Bold Ayah Fraction] of ">Hematocrit Medical Blood by </content>36.4 Center Automated count %<content styleCode="Ital ics"> (36.0-46.0 %)</content> Erythrocytes 4.0-5.1 <content [facility] [#/volume] in styleCode="Bold Ayah Blood by ">Red Blood Medical Automated count Cell Count Center </content>4.75 MCUMM<content styleCode="Ital ics"> (4.0-5.1 MCUMM)</content > Platelets 130-400 <content [facility] [#/volume] in styleCode="Bold Ayah Blood by ">Platelet Medical Automated count Count Center </content>298 KCUMM<content styleCode="Ital ics"> (130-400 KCUMM)</content > Erythrocyte mean 26.0-34. Below low normal <content [facility] corpuscular 0 styleCode="Bold Ayah hemoglobin ">Mean Medical [Entitic mass] Corposcular Center by Automated Hemoglobin count </content>24.2 PG L<content styleCode="Ital ics"> (26.0-34.0 PG)</content> Erythrocyte 11.5-14. Above high <content [facility] distribution 5 normal styleCode="Bold Ayah width [Ratio] by ">Red Cell Medical Automated count Distribution Center Width </content>15.0 % H<content styleCode="Ital ics"> (11.5-14.5 %)</content> Erythrocyte mean 32.0-37. Below low normal <content [facility] corpuscular 0 styleCode="Bold Ayah hemoglobin ">Mean Corpus. Medical concentration Hgb Center [Mass/volume] by Concentration Automated count (MCHC) </content>31.6 G/DL L<content styleCode="Ital ics"> (32.0-37.0 G/DL)</content> Platelet mean 8.0-11.0 <content [facility] volume [Entitic styleCode="Bold Ayah volume] in Blood ">Mean Platelet Medical by Automated Volume Center count </content>10.2 FL<content styleCode="Ital ics"> (8.0-11.0 FL)</content> UNK 0.0 <content Saint styleCode="Bold Ayah ">Nucleated Red Medical Blood Cell Center Count </content>0.00 KCUMM<content styleCode="Ital ics"> (0.0 KCUMM)</content > UNK 0 <content Saint styleCode="Bold Ayah ">Nucleated Red Medical Blood Cell Center </content>0.0 /100<content styleCode="Ital ics"> (0 /100)</content> ID Date Data Source GFR(Creatinine).[id number] 05/05/2019 05:17:00 AM EDT [facility] 0-0400 Name Value Range Interpretation Code Description Data Carrie rce(s) Supporting Document(s ) UNK > 60 <content [facility] styleCode="Bold"> Medical Cent er EGFR </content>123 GFR<content styleCode="Italic s"> (> 60 GFR)</content> ID Date Data Source Coagulation 05/05/2019 05:17:00 AM [facility] ical Center Rout.[id number] EDT Name Value Range Interpretation Description Data Sup porting Code Source(s) Document(s ) aPTT in 25.1-36. <content Saint Platelet poor 5 styleCode="Bold" Ayah plasma by >Partial Medical Coagulation Thromboplastin Center assay Time </content>32.8 SEC<content styleCode="Itali cs"> (25.1-36.5 SEC)</content> INR in 0.80-1.2 <content [facility] Platelet poor 0 styleCode="Bold" Ayah plasma by >INR Medical Coagulation </content>1.13 Center assay #<content styleCode="Itali cs"> (0.80-1.20 #)</content> UNK 9.0-13.0 <content Saint styleCode="Bold" Ayah >Protime Medical </content>12.8 Center SEC<content styleCode="Itali cs"> (9.0-13.0 SEC)</content> ID Date Data Source ChemistrySpecia.[id number] 05/05/2019 05:17:00 AM EDT [facility] 0-0400 Name Value Range Interpretation Description Data Sup porting Code Source(s) Document(s ) Folate > 3.0 <content [facility] [Mass/volume] styleCode="Raquel Ayah in Serum or d">Folic Acid Medical Plasma </content>19.0 Center NG/ML<content styleCode="Evangelina lics"> (> 3.0 NG/ML)</conten t> Cobalamin 239-931 <content Saint (Vitamin B12) styleCode="Raquel Ayah [Mass/volume] d">Vitamin B12 Medical in Serum or </content>384 Center Plasma PG/ML<content styleCode="Evangelina lics"> (239-931 PG/ML)</conten t> ID Date Data Source CHMROUTINECCDA.[id number] 05/05/2019 05:17:00 AM EDT [facility] -0400 Name Value Range Interpretation Description Data Sup porting Code Source(s) Document(s ) UNK >= 1.0 <content [facility] styleCode="Raquel Ayah d">AG Ratio Medical </content>1.2 Center <content styleCode="Evangelina lics"> (>= 1.0 )</content> Folate > 3.0 <content [facility] [Mass/volume] styleCode="Raquel Ayah in Serum or d">Folic Acid Medical Plasma </content>19.0 Center NG/ML<content styleCode="Evangelina lics"> (> 3.0 NG/ML)</conten t> Ferritin 11-264 <content [facility] [Mass/volume] styleCode="Raquel Ayah in Serum or d">Ferritin Medical Plasma </content>14.7 Center NG/ML<content styleCode="Evangelina lics"> (11-264 NG/ML)</conten t> UNK 2.3-3.5 <content [facility] styleCode="Raquel Ayah d">Globulin Medical </content>3.0 Center G/DL<content styleCode="Evangelina lics"> (2.3-3.5 G/DL)</content > Iron 37-170 <content [facility] [Mass/volume] styleCode="Raquel Ayah in Serum or d">Iron Medical Plasma </content>59 Center UG/DL<content styleCode="Evangelina lics"> (37-170 UG/DL)</conten t> Lipase 23-300 <content Saint [Enzymatic styleCode="Raquel Ayah activity/volu d">Lipase Medical me] in Serum </content>99 Center or Plasma IU/L<content styleCode="Evangelina lics"> (23-300 IU/L)</content > Magnesium 1.6-2.3 <content [facility] [Mass/volume] styleCode="Raquel Ayah in Serum or d">Magnesium Medical Plasma </content>1.9 Center MG/DL<content styleCode="Evangelina lics"> (1.6-2.3 MG/DL)</conten t> Phosphate 2.5-4.5 <content [facility] [Mass/volume] styleCode="Raquel Ayah in Serum or d">Phosphorus Medical Plasma </content>3.6 Center MG/DL<content styleCode="Evangelina lics"> (2.5-4.5 MG/DL)</conten t> Protein 6.3-8.2 <content [facility] [Mass/volume] styleCode="Raquel Ayah in Serum or d">Total Medical Plasma Protein Center </content>6.7 G/DL<content styleCode="Evangelina lics"> (6.3-8.2 G/DL)</content > UNK 265-497 <content Saint styleCode="Raquel Ayah d">TIBC Medical </content>367 Center UG/DL<content styleCode="Evangelina lics"> (265-497 UG/DL)</conten t> ID Date Data Source [facility].[id number] 05/05/2019 05:17:00 AM EDT [facility] Name Value Range Interpretation Description Data Sup porting Code Source(s) Document(s ) Sodium 137-145 <content [facility] [Moles/volume] in styleCode="Bold"> Justin phs Serum or Plasma Sodium Medical </content>140 Center MEQ/L<content styleCode="Italic s"> (137-145 MEQ/L)</content> Carbon dioxide, 22-30 <content Saint total styleCode="Bold"> Ayah [Moles/volume] in Carbon Dioxide Medical Serum or Plasma </content>27 Center MEQ/L<content styleCode="Italic s"> (22-30 MEQ/L)</content> Potassium 3.5-5.3 <content [facility] [Moles/volume] in styleCode="Bold"> Justin phs Serum or Plasma Potassium Medical </content>4.2 Center MEQ/L<content styleCode="Italic s"> (3.5-5.3 MEQ/L)</content> UNK 7-17 Below low <content Saint normal styleCode="Bold"> Ayah BUN </content>5 Medical MG/DL L<content Center styleCode="Italic s"> (7-17 MG/DL)</content> Chloride 98-107 <content Saint [Moles/volume] in styleCode="Bold"> Justin phs Serum or Plasma Chloride Medical </content>106 Center MEQ/L<content styleCode="Italic s"> (98-107 MEQ/L)</content> Creatinine 0.5-1.3 <content [facility] [Mass/volume] in styleCode="Bold"> Lizandro hs Serum or Plasma Creatinine Medical </content>0.6 Center MG/DL<content styleCode="Italic s"> (0.5-1.3 MG/DL)</content> Calcium 8.4-10. <content [facility] [Mass/volume] in 2 styleCode="Bold"> Lizandro hs Serum or Plasma Calcium Medical </content>9.0 Center MG/DL<content styleCode="Italic s"> (8.4-10.2 MG/DL)</content> Glucose 74-106 <content [facility] [Mass/volume] in styleCode="Bold"> Lizandro hs Serum or Plasma Glucose Medical </content>90 Center MG/DL<content styleCode="Italic s"> (74-106 MG/DL)</content> Aspartate 14-36 <content [facility] aminotransferase styleCode="Bold"> Lizandro hs [Enzymatic Aspartate Medical activity/volume] Aminotransferase Center in Serum or Plasma (AST) </content>17 IU/L<content styleCode="Italic s"> (14-36 IU/L)</content> UNK > 60 <content Saint styleCode="Bold"> Ayah EGFR Medical </content>123 Center GFR<content styleCode="Italic s"> (> 60 GFR)</content> Alanine 7-30 <content [facility] aminotransferase styleCode="Bold"> Lizandro hs [Enzymatic Alanine Medical activity/volume] Aminotransferase Center in Serum or Plasma (ALT) </content>15 IU/L<content styleCode="Italic s"> (7-30 IU/L)</content> Alkaline 38-126 <content [facility] phosphatase styleCode="Bold"> Ayah [Enzymatic Alkaline Medical activity/volume] Phosphatase (ALP) Cente r in Serum or Plasma </content>67 IU/L<content styleCode="Italic s"> (38-126 IU/L)</content> Albumin 3.5-5.0 <content [facility] [Mass/volume] in styleCode="Bold"> Lizandro hs Serum or Plasma Albumin Medical </content>3.7 Center G/DL<content styleCode="Italic s"> (3.5-5.0 G/DL)</content> Bilirubin.total 0.2-1.3 <content [facility] [Mass/volume] in styleCode="Bold"> Lizandro hs Serum or Plasma Bilirubin Total Medical </content>0.5 Center MG/DL<content styleCode="Italic s"> (0.2-1.3 MG/DL)</content> ID Date Data Source Liver 05/03/2019 11:40:00 PM EDT [facility] Profile.[id number] Name Value Range Interpretation Description Data Sup porting Code Source(s) Document(s ) Aspartate 14-36 <content [facility] aminotransferase styleCode="Bold"> Lizandro hs [Enzymatic Aspartate Medical activity/volume] Aminotransferase Center in Serum or Plasma (AST) </content>16 IU/L<content styleCode="Italic s"> (14-36 IU/L)</content> Alanine 7-30 <content [facility] aminotransferase styleCode="Bold"> Lizandro hs [Enzymatic Alanine Medical activity/volume] Aminotransferase Center in Serum or Plasma (ALT) </content>15 IU/L<content styleCode="Italic s"> (7-30 IU/L)</content> Alkaline 38-126 <content [facility] phosphatase styleCode="Bold"> Ayah [Enzymatic Alkaline Medical activity/volume] Phosphatase (ALP) Cente r in Serum or Plasma </content>67 IU/L<content styleCode="Italic s"> (38-126 IU/L)</content> Albumin 3.5-5.0 <content [facility] [Mass/volume] in styleCode="Bold"> Lizandro hs Serum or Plasma Albumin Medical </content>4.1 Center G/DL<content styleCode="Italic s"> (3.5-5.0 G/DL)</content> Bilirubin.total 0.2-1.3 Below low <content [facility] [Mass/volume] in normal styleCode="Bold"> Lizandro hs Serum or Plasma Bilirubin Total Medical </content>< 0.2 Center MG/DL L<content styleCode="Italic s"> (0.2-1.3 MG/DL)</content> UNK 0.0-0.3 <content [facility] styleCode="Bold"> Ayah Bilirubin, Direct Medical </content>< 0.2 Center MG/DL<content styleCode="Italic s"> (0.0-0.3 MG/DL)</content> ID Date Data Source HematologyRou.[id number] 05/03/2019 11:40:00 PM EDT [facility] 0400 Name Value Range Interpretation Description Data Sup porting Code Source(s) Document(s ) Leukocytes 4.4-11.0 <content [facility] [#/volume] in styleCode="Bold Ayah Blood by ">White Blood Medical Automated count Cell Count Center </content>8.98 KCUMM<content styleCode="Ital ics"> (4.4-11.0 KCUMM)</content > Hemoglobin 12.3-16. Below low normal <content [facility] [Mass/volume] in 0 styleCode="Bold Ayah Blood ">Hemoglobin Medical </content>11.5 Center G/DL L<content styleCode="Ital ics"> (12.3-16.0 G/DL)</content> Erythrocytes 4.0-5.1 <content [facility] [#/volume] in styleCode="Bold Ayah Blood by ">Red Blood Medical Automated count Cell Count Center </content>4.81 MCUMM<content styleCode="Ital ics"> (4.0-5.1 MCUMM)</content > Hematocrit 36.0-46. <content [facility] [Volume 0 styleCode="Bold Ayah Fraction] of ">Hematocrit Medical Blood by </content>36.5 Center Automated count %<content styleCode="Ital ics"> (36.0-46.0 %)</content> Erythrocyte mean 32.0-37. Below low normal <content [facility] corpuscular 0 styleCode="Bold Ayah hemoglobin ">Mean Corpus. Medical concentration Hgb Center [Mass/volume] by Concentration Automated count (MCHC) </content>31.5 G/DL L<content styleCode="Ital ics"> (32.0-37.0 G/DL)</content> Erythrocyte mean 80.0-100 <content [facility] corpuscular .0 styleCode="Bold Ayah volume [Entitic ">Mean Medical volume] by Corpuscular Center Automated count Volume </content>75.9 FL<content styleCode="Ital ics"> (80.0-100.0 FL)</content> Erythrocyte mean 26.0-34. Below low normal <content [facility] corpuscular 0 styleCode="Bold Ayah hemoglobin ">Mean Medical [Entitic mass] Corposcular Center by Automated Hemoglobin count </content>23.9 PG L<content styleCode="Ital ics"> (26.0-34.0 PG)</content> Erythrocyte 11.5-14. Above high <content [facility] distribution 5 normal styleCode="Bold Ayah width [Ratio] by ">Red Cell Medical Automated count Distribution Center Width </content>15.2 % H<content styleCode="Ital ics"> (11.5-14.5 %)</content> Platelet mean 8.0-11.0 <content [facility] volume [Entitic styleCode="Bold Ayah volume] in Blood ">Mean Platelet Medical by Automated Volume Center count </content>10.2 FL<content styleCode="Ital ics"> (8.0-11.0 FL)</content> UNK 0.0 <content Saint styleCode="Bold Ayah ">Nucleated Red Medical Blood Cell Center Count </content>0.00 KCUMM<content styleCode="Ital ics"> (0.0 KCUMM)</content > Platelets 130-400 <content [facility] [#/volume] in styleCode="Bold Ayah Blood by ">Platelet Medical Automated count Count Center </content>308 KCUMM<content styleCode="Ital ics"> (130-400 KCUMM)</content > UNK 0 <content [facility] styleCode="Bold Ayah ">Nucleated Red Medical Blood Cell Center </content>0.0 /100<content styleCode="Ital ics"> (0 /100)</content> ID Date Data Source GFR(Creatinine).[id number] 05/03/2019 11:40:00 PM EDT [facility] 0-0400 Name Value Range Interpretation Code Description Data Carrie rce(s) Supporting Document(s ) UNK > 60 <content [facility] styleCode="Bold"> Medical Cent er EGFR </content>123 GFR<content styleCode="Italic s"> (> 60 GFR)</content> ID Date Data Source CHMROUTINECCDA.[id number] 05/03/2019 11:40:00 PM EDT [facility] -0400 Name Value Range Interpretation Description Data Sup porting Code Source(s) Document(s ) UNK 30-110 <content [place] styleCode="Bold Medical ">Amylase Center </content>72 IU/L<content styleCode="Ital ics"> (30-110 IU/L)</content> Lipase 23-300 Above high normal <content [place] s [Enzymatic styleCode="Bold Medical activity/vo ">Lipase Center lume] in </content>435 Serum or IU/L H<content Plasma styleCode="Ital ics"> (23-300 IU/L)</content> ID Date Data Source [facility].[id number] 05/03/2019 11:40:00 PM EDT [facility] Name Value Range Interpretation Description Data Sup porting Code Source(s) Document(s ) Carbon dioxide, 22-30 <content [facility] total styleCode="Bold"> Ayah [Moles/volume] in Carbon Dioxide Medical Serum or Plasma </content>27 Center MEQ/L<content styleCode="Italic s"> (22-30 MEQ/L)</content> Sodium 137-145 <content [facility] [Moles/volume] in styleCode="Bold"> [facility] Serum or Plasma Sodium Medical </content>140 Center MEQ/L<content styleCode="Italic s"> (137-145 MEQ/L)</content> Chloride 98-107 <content [facility] [Moles/volume] in styleCode="Bold"> [facility] Serum or Plasma Chloride Medical </content>106 Center MEQ/L<content styleCode="Italic s"> (98-107 MEQ/L)</content> Potassium 3.5-5.3 <content [facility] [Moles/volume] in styleCode="Bold"> [facility] Serum or Plasma Potassium Medical </content>4.1 Center MEQ/L<content styleCode="Italic s"> (3.5-5.3 MEQ/L)</content> UNK 7-17 <content [facility] styleCode="Bold"> Ayah BUN </content>9 Medical MG/DL<content Center styleCode="Italic s"> (7-17 MG/DL)</content> Calcium 8.4-10. <content [facility] [Mass/volume] in 2 styleCode="Bold"> Lizandro hs Serum or Plasma Calcium Medical </content>8.9 Center MG/DL<content styleCode="Italic s"> (8.4-10.2 MG/DL)</content> Glucose 74-106 Above high <content [facility] [Mass/volume] in normal styleCode="Bold"> Lizandro hs Serum or Plasma Glucose Medical </content>137 Center MG/DL H<content styleCode="Italic s"> (74-106 MG/DL)</content> UNK > 60 <content [facility] styleCode="Bold"> Ayah EGFR Medical </content>123 Center GFR<content styleCode="Italic s"> (> 60 GFR)</content> Creatinine 0.5-1.3 <content [facility] [Mass/volume] in styleCode="Bold"> Lizandro hs Serum or Plasma Creatinine Medical </content>0.6 Center MG/DL<content styleCode="Italic s"> (0.5-1.3 MG/DL)</content> Alanine 7-30 <content [facility] aminotransferase styleCode="Bold"> Lizandro hs [Enzymatic Alanine Medical activity/volume] Aminotransferase Center in Serum or Plasma (ALT) </content>15 IU/L<content styleCode="Italic s"> (7-30 IU/L)</content> Alkaline 38-126 <content [facility] phosphatase styleCode="Bold"> Ayah [Enzymatic Alkaline Medical activity/volume] Phosphatase (ALP) Cente r in Serum or Plasma </content>67 IU/L<content styleCode="Italic s"> (38-126 IU/L)</content> Aspartate 14-36 <content [facility] aminotransferase styleCode="Bold"> Lizandro hs [Enzymatic Aspartate Medical activity/volume] Aminotransferase Center in Serum or Plasma (AST) </content>16 IU/L<content styleCode="Italic s"> (14-36 IU/L)</content> Albumin 3.5-5.0 <content [facility] [Mass/volume] in styleCode="Bold"> Lizandro hs Serum or Plasma Albumin Medical </content>4.1 Center G/DL<content styleCode="Italic s"> (3.5-5.0 G/DL)</content> Bilirubin.total 0.2-1.3 Below low <content [facility] [Mass/volume] in normal styleCode="Bold"> Lizandro hs Serum or Plasma Bilirubin Total Medical </content>< 0.2 Center MG/DL L<content styleCode="Italic s"> (0.2-1.3 MG/DL)</content> ID Date Data Source Urinalysis.[id number] 05/03/2019 11:05:00 PM EDT [facility] 0 Name Value Range Interpretation Description Data Sup porting Code Source(s) Document(s ) UNK CLEAR <content [facility] styleCode="Raquel Ayah d">Urine Medical Clarity Center </content>SAVANNAH R <content styleCode="Evangelina lics"> (CLEAR )</content> Color of Urine YELLOW <content [facility] styleCode="Raquel Ayah d">Color, Medical Urine Center </content>YELL OW <content styleCode="Evangelina lics"> (YELLOW )</content> Ketones NEGATIVE <content [facility] [Mass/volume] styleCode="Raquel Canelas in Urine by d">Urine Medical Test strip Ketone Center </content>NEGA TIVE MG/DL<content styleCode="Evangelina lics"> (NEGATIVE MG/DL)</conten t> Glucose NEGATIVE <content [facility] [Mass/volume] styleCode="Raquel Ayah in Urine by d">Urine Medical Test strip Glucose Center </content>NEGA TIVE MG/DL<content styleCode="Evangelina lics"> (NEGATIVE MG/DL)</conten t> UNK NEGATIVE <content [facility] styleCode="Raquel Ayah d">Urine Medical Bilirubin Center </content>NEGA TIVE <content styleCode="Evangelina lics"> (NEGATIVE )</content> pH of Urine by 4.5-8.0 <content [facility] Test strip styleCode="Raquel Yaah d">Urine pH Medical </content>6.0 Center <content styleCode="Evangelina lics"> (4.5-8.0 )</content> Hemoglobin NEGATIVE <content [facility] [Presence] in styleCode="Raquel Canelas Urine by Test d">Urine Blood Medical strip </content>NEGA Center TIVE <content styleCode="Evangelina lics"> (NEGATIVE )</content> Specific 1.015-1.02 <content [facility] gravity of 5 styleCode="Raquel Canelas Urine by Test d">Urine Medical strip Specific [facility] </content>1.01 5 <content styleCode="Evangelina lics"> (1.015-1.025 )</content> Protein NEGATIVE <content [facility] [Mass/volume] styleCode="Raquel Canelas in Urine by d">Urine Medical Test strip Protein Center </content>NEGA TIVE MG/DL<content styleCode="Evangelina lics"> (NEGATIVE MG/DL)</conten t> Nitrite NEGATIVE <content [facility] [Presence] in styleCode="Raquel Canelas Urine by Test d">Urine Medical strip Nitrite Center </content>NEGA TIVE <content styleCode="Evangelina lics"> (NEGATIVE )</content> Leukocyte NEGATIVE <content [facility] esterase styleCode="Raquel Canelas [Presence] in d">Urine Medical Urine by Test Leukocyte Center strip </content>TRAC E <content styleCode="Veangelina lics"> (NEGATIVE )</content> Urobilinogen 0.2-1.0 <content [facility] [Units/volume] styleCode="Raquel Ayah in Urine by d">Urine Medical Test strip Urobilinogen Center </content>0.2 MG/DL<content styleCode="Evangelina lics"> (0.2-1.0 MG/DL)</conten t> UNK NEGATIVE <content [facility] styleCode="Raquel Ayah d">Urine Medical Bacteria Center </content>FEW HPF<content styleCode="Evangelina lics"> (NEGATIVE HPF)</content> UNK 0-3 <content [facility] styleCode="Raquel Ayah d">Urine White Medical Blood Cell Center </content>5 - 10 HPF<content styleCode="Evangelina lics"> (0-3 HPF)</content> UNK 0-3 <content [facility] styleCode="Raquel Ayah d">Urine Red Medical Blood Cell Center </content>0-3 HPF<content styleCode="Evangelina lics"> (0-3 HPF)</content> UNK <content [facility] styleCode="Raquel Ayah d">Epithelial Medical Cell Center </content>20-2 5 LPF (Reference Range: not available)<br/ > ID Date Data Source Microbiology.[id number] 05/03/2019 11:05:00 PM EDT [facility] 400 Name Value Range Interpretation Code Description Data Carrie rce(s) Supporting Document(s ) UNK <item><content [facility] styleCode="Bold">Cul Medical C enter ture Status </content>
<tabl e><tbody><tr><td>Spe cimen Number:</td><td>[id number]</td></tr><tr>< td>Sample Collection Date/Time: </td><td>05/03/2019 11:05 PM</td></tr><tr><td> Specimen Source:</td><td>URIN E</td></tr><tr><td>C ulture Status:</td><td>Rama l </td></tr><tr><td>Cu lture Report:</td><td>NO FURTHER WORKUP </td></tr><tr><td>Ur ine Culture:</td><td>Col lection Plate Date: 05/03/2019 23:10 </td></tr><tr><td>Or ganism 1:</td><td>CORYNEBAC TERIUM SPECIES </td></tr><tr><td>Or ganism 2:</td><td>COAGULASE NEGATIVE STAPHYLOCOCCUS </td></tr></tbody></ table>
<table border="2"><tbody><t r><td></td><td>1</td ><td>2</td></tr><tr> <td>Comment</td><td> </td><td></td></tr>< tr><td>Result Value</td><td>CORYNE BACTERIUM SPECIES </td><td>COAGULASE NEGATIVE STAPHYLOCOCCUS </td></tr><tr><td>Re sult Status</td><td>Final Result</td><td>Final Result</td></tr><tr> <td></td><td></td><t d></td></tr></tbody> </table></item> UNK <item><content [facility] styleCode="Bold">Cul Medical C enter ture Report </content>
<tabl e><tbody><tr><td>Spe cimen Number:</td><td>[id number]</td></tr><tr>< td>Sample Collection Date/Time: </td><td>05/03/2019 11:05 PM</td></tr><tr><td> Specimen Source:</td><td>URIN E</td></tr><tr><td>U rine Culture:</td><td>Col lection Plate Date: 05/03/2019 23:10 </td></tr><tr><td>Cu lture Status:</td><td>Rama l </td></tr><tr><td>Cu lture Report:</td><td>NO FURTHER WORKUP </td></tr><tr><td>Or ganism 1:</td><td>CORYNEBAC TERIUM SPECIES </td></tr><tr><td>Or ganism 2:</td><td>COAGULASE NEGATIVE STAPHYLOCOCCUS </td></tr></tbody></ table>
<table border="2"><tbody><t r><td></td><td>1</td ><td>2</td></tr><tr> <td>Comment</td><td> </td><td></td></tr>< tr><td>Result Value</td><td>CORYNE BACTERIUM SPECIES </td><td>COAGULASE NEGATIVE STAPHYLOCOCCUS </td></tr><tr><td>Re sult Status</td><td>Final Result</td><td>Final Result</td></tr><tr> <td></td><td></td><t d></td></tr></tbody> </table></item> ID Date Data Source US transvaginal, 03/01/2019 06:33:21 PM eCW2 ([facility] - [facility] (13853).0 EDT [place] [employer] [facility]) Name Value Range Interpretation Description Data Sup porting Code Source(s) Document(s ) Laboratory US eCW2 (Planned studies (set) transvaginal, [facility] [place] uterus ([id number]) [employer]) ID Date Data Source Urinalysis.[id number] 12/01/2018 12:20:00 AM EST [facility] 0 Name Value Range Interpretation Description Data Sup porting Code Source(s) Document(s ) Glucose NEGATIVE <content [facility] [Mass/volume] styleCode="Raquel Poon in Urine by d">Urine Medical Test strip Glucose Center </content>NEGA TIVE MG/DL<content styleCode="Evangelina lics"> (NEGATIVE MG/DL)</conten t> UNK CLEAR <content [facility] styleCode="Raquel Ayah d">Urine Medical Clarity Center </content>SAVANNAH R <content styleCode="Evangelina lics"> (CLEAR )</content> Color of Urine YELLOW <content [facility] styleCode="Raquel Ayah d">Color, Medical Urine Center </content>YELL OW <content styleCode="Evangelina lics"> (YELLOW )</content> Ketones NEGATIVE <content [facility] [Mass/volume] styleCode="Raquel Ayah in Urine by d">Urine Medical Test strip Ketone Center </content>NEGA TIVE MG/DL<content styleCode="Evangelina lics"> (NEGATIVE MG/DL)</conten t> Specific 1.015-1.02 <content [facility] gravity of 5 styleCode="Raquel Ayah Urine by Test d">Urine Medical strip Specific Center [facility] </content>1.01 5 NM<content styleCode="Evangelina lics"> (1.015-1.025 NM)</content> UNK NEGATIVE <content [facility] styleCode="Raquel Ayah d">Urine Medical Bilirubin Center </content>NEGA TIVE <content styleCode="Evangelina lics"> (NEGATIVE )</content> Urobilinogen 0.2-1.0 <content [facility] [Units/volume] styleCode="Raquel Ayah in Urine by d">Urine Medical Test strip Urobilinogen Center </content>0.2 MG/DL<content styleCode="Evangelina lics"> (0.2-1.0 MG/DL)</conten t> pH of Urine by 4.5-8.0 <content [facility] Test strip styleCode="Raquel Ayah d">Urine pH Medical </content>7.5 Center NM<content styleCode="Evangelina lics"> (4.5-8.0 NM)</content> Protein NEGATIVE <content [facility] [Mass/volume] styleCode="Raquel Ayah in Urine by d">Urine Medical Test strip Protein Center </content>NEGA TIVE MG/DL<content styleCode="Evangelina lics"> (NEGATIVE MG/DL)</conten t> Hemoglobin NEGATIVE <content [facility] [Presence] in styleCode="Raquel Ayah Urine by Test d">Urine Blood Medical strip </content>NEGA Center TIVE <content styleCode="Evangelina lics"> (NEGATIVE )</content> Nitrite NEGATIVE <content [facility] [Presence] in styleCode="Raquel Poon Urine by Test d">Urine Medical strip Nitrite Center </content>NEGA TIVE <content styleCode="Evangelina lics"> (NEGATIVE )</content> UNK 0-3 <content [facility] styleCode="Raquel Canelas d">Urine Red Medical Blood Cell Center </content>0-3 HPF<content styleCode="Evangelina lics"> (0-3 HPF)</content> Leukocyte NEGATIVE <content [facility] esterase styleCode="Raquel Poon [Presence] in d">Urine Medical Urine by Test Leukocyte Center strip </content>SMAL L <content styleCode="Evangelina lics"> (NEGATIVE )</content> UNK 0-3 <content [facility] styleCode="Raquel Canelas d">Urine White Medical Blood Cell Center </content>3-5 HPF<content styleCode="Evangelina lics"> (0-3 HPF)</content> UNK NEGATIVE <content [facility] styleCode="Raquel Canelas d">Urine Medical Bacteria Center </content>FEW HPF<content styleCode="Evangelina lics"> (NEGATIVE HPF)</content> UNK <content [facility] styleCode="Raquel Canelas d">Epithelial Medical Cell Center </content>2-5 LPF (Reference Range: not available)<br/ > ID Date Data Source Microbiology.[id number] 12/01/2018 12:20:00 AM EST [facility] 500 Name Value Range Interpretation Code Description Data Carrie rce(s) Supporting Document(s ) UNK <item><content [facility] styleCode="Bold">Cu Medical Ce nter lture Status </content>
<tab le><tbody><tr><td>S pecimen Number:</td><td>[id number]</td></tr><tr ><td>Sample Collection Date/Time: </td><td>12/01/2018 12:20 AM</td></tr><tr><td >Specimen Source:</td><td>URI NE</td></tr><tr><td >Culture Status:</td><td>Fin al </td></tr><tr><td>C ulture Report:</td><td>PLE ASE REPEAT SPECIMEN COLLECTION </td></tr><tr><td>U rine Culture:</td><td>Co llection Plate Date: 12/01/2018 00:22 </td></tr><tr><td>O rganism 1:</td><td>VIRIDANS STREPTOCOCCUS GROUP </td></tr><tr><td>O rganism 2:</td><td>CORYNEBA CTERIUM SPECIES </td></tr><tr><td>O rganism 3:</td><td>COAGULAS E NEGATIVE STAPHYLOCOCCUS </td></tr></tbody>< /table>
<table border="2"><tbody>< tr><td></td><td>1</ td><td>2</td><td>3< /td></tr><tr><td>Co mment</td><td></td> <td></td><td></td>< /tr><tr><td>Result Value</td><td>VIRID ANS STREPTOCOCCUS GROUP </td><td>CORYNEBACT ERIUM SPECIES </td><td>COAGULASE NEGATIVE STAPHYLOCOCCUS </td></tr><tr><td>R esult Status</td><td>Rama l Result</td><td>Rama l Result</td><td>Rama l Result</td></tr><tr ><td></td><td></td> <td></td><td></td>< /tr></tbody></table ></item> ID Date Data Source Urinalysis 12/01/2018 12:20:00 AM [facility] Name Value Range Interpretation Description Data Sup porting Code Source(s) Document(s ) UNK CLEAR <content [facility] styleCode="Raquel Canelas d">Urine Medical Clarity Center </content>SAVANNAH R <content styleCode="Evangelina lics"> (CLEAR )</content> Glucose NEGATIVE <content [facility] [Mass/volume] styleCode="Raquel Canelas in Urine by d">Urine Medical Test strip Glucose Center </content>NEGA TIVE MG/DL<content styleCode="Evangelina lics"> (NEGATIVE MG/DL)</conten t> Color of Urine YELLOW <content [facility] styleCode="Raquel Ayah d">Color, Medical Urine Center </content>YELL OW <content styleCode="Evangelina lics"> (YELLOW )</content> UNK NEGATIVE <content [facility] styleCode="Raquel Ayah d">Urine Medical Bilirubin Center </content>NEGA TIVE <content styleCode="Evangelina lics"> (NEGATIVE )</content> Specific 1.015-1.02 <content [facility] gravity of 5 styleCode="Raquel Canelas Urine by Test d">Urine Medical strip Specific [facility] </content>1.01 5 NM<content styleCode="Evangelina lics"> (1.015-1.025 NM)</content> Ketones NEGATIVE <content [facility] [Mass/volume] styleCode="Raquel Canelas in Urine by d">Urine Medical Test strip Ketone Center </content>NEGA TIVE MG/DL<content styleCode="Evangelina lics"> (NEGATIVE MG/DL)</conten t> Protein NEGATIVE <content [facility] [Mass/volume] styleCode="Raquel Ayah in Urine by d">Urine Medical Test strip Protein Center </content>NEGA TIVE MG/DL<content styleCode="Evangelina lics"> (NEGATIVE MG/DL)</conten t> pH of Urine by 4.5-8.0 <content [facility] Test strip styleCode="Raquel Ayah d">Urine pH Medical </content>7.5 Center NM<content styleCode="Evangelina lics"> (4.5-8.0 NM)</content> Hemoglobin NEGATIVE <content [facility] [Presence] in styleCode="Rqauel Ayah Urine by Test d">Urine Blood Medical strip </content>NEGA Center TIVE <content styleCode="Evangelina lics"> (NEGATIVE )</content> Urobilinogen 0.2-1.0 <content [facility] [Units/volume] styleCode="Raquel Poon in Urine by d">Urine Medical Test strip Urobilinogen Center </content>0.2 MG/DL<content styleCode="Evangelina lics"> (0.2-1.0 MG/DL)</conten t> Nitrite NEGATIVE <content [facility] [Presence] in styleCode="Raquel Poon Urine by Test d">Urine Medical strip Nitrite Center </content>NEGA TIVE <content styleCode="Evangelina lics"> (NEGATIVE )</content> UNK 0-3 <content [facility] styleCode="Raquel Canelas d">Urine Red Medical Blood Cell Center </content>0-3 HPF<content styleCode="Evangelina lics"> (0-3 HPF)</content> UNK 0-3 <content [facility] styleCode="Raquel Canelas d">Urine White Medical Blood Cell Center </content>3-5 HPF<content styleCode="Evangelina lics"> (0-3 HPF)</content> Leukocyte NEGATIVE <content [facility] esterase styleCode="Raquel Poon [Presence] in d">Urine Medical Urine by Test Leukocyte Center strip </content>SMAL L <content styleCode="Evangelina lics"> (NEGATIVE )</content> UNK NEGATIVE <content [facility] styleCode="Raquel Canelas d">Urine Medical Bacteria Center </content>FEW HPF<content styleCode="Evangelina lics"> (NEGATIVE HPF)</content> UNK <content Saint styleCode="[facility] d">Epithelial Medical Cell Center </content>2-5 LPF (Reference Range: not available)<br/ > ID Date Data Source Microbiology 12/01/2018 12:20:00 AM EST [facility] Name Value Range Interpretation Code Description Data Carrie rce(s) Supporting Document(s ) UNK <item><content [facility] styleCode="Bold"> Medical Cent er Culture Status </content>
<t able><tbody><tr>< td>Specimen Number:</td><td>[id number]</td></tr ><tr><td>Sample Collection Date/Time: </td><td>12/01/2018 12:20 AM</td></tr><tr>< td>Specimen Source:</td><td>U RINE</td></tr><tr ><td>Culture Status:</td><td>P reliminary </td></tr><tr><td >Culture Report:</td><td>C ulture in progress </td></tr><tr><td >Urine Culture:</td><td> Collection Plate Date: 12/01/2018 00:22 </td></tr></tbody ></table></item> UNK <item><content [facility] styleCode="Bold"> [facility] Culture Report </content>
<t able><tbody><tr>< td>Specimen Number:</td><td>[id number]</td></tr ><tr><td>Sample Collection Date/Time: </td><td>12/01/2018 12:20 AM</td></tr><tr>< td>Specimen Source:</td><td>U RINE</td></tr><tr ><td>Urine Culture:</td><td> Collection Plate Date: 12/01/2018 00:22 </td></tr><tr><td >Culture Status:</td><td>P reliminary </td></tr><tr><td >Culture Report:</td><td>C ulture in progress </td></tr></tbody ></table></item> ID Date Data Source Liver 11/30/2018 11:20:00 PM EST [facility] Profile.[id number] Name Value Range Interpretation Description Data Sup porting Code Source(s) Document(s ) Aspartate 14-36 <content [facility] aminotransferase styleCode="Bold"> [facility] [Enzymatic Aspartate Medical activity/volume] Aminotransferase Center in Serum or Plasma (AST) </content>23 IU/L<content styleCode="Italic s"> (14-36 IU/L)</content> Alanine 7-30 <content [facility] aminotransferase styleCode="Bold"> Lizandro hs [Enzymatic Alanine Medical activity/volume] Aminotransferase Center in Serum or Plasma (ALT) </content>20 IU/L<content styleCode="Italic s"> (7-30 IU/L)</content> Alkaline 38-126 <content [facility] phosphatase styleCode="Bold"> [facility] [Enzymatic Alkaline Medical activity/volume] Phosphatase (ALP) Cente r in Serum or Plasma </content>72 IU/L<content styleCode="Italic s"> (38-126 IU/L)</content> UNK 0.0-0.3 <content Saint styleCode="Bold"> [facility] Bilirubin, Direct Medical </content>< 0.2 Center MG/DL<content styleCode="Italic s"> (0.0-0.3 MG/DL)</content> Bilirubin.total 0.2-1.3 <content Saint [Mass/volume] in styleCode="Bold"> Lizandro hs Serum or Plasma Bilirubin Total Medical </content>0.3 Center MG/DL<content styleCode="Italic s"> (0.2-1.3 MG/DL)</content> Albumin 3.5-5.0 <content Saint [Mass/volume] in styleCode="Bold"> Lizandro hs Serum or Plasma Albumin Medical </content>4.2 Center G/DL<content styleCode="Italic s"> (3.5-5.0 G/DL)</content> ID Date Data Source HematologyRou.[id number] 11/30/2018 11:20:00 PM EST Osvaldo nt [facility] 0500 Name Value Range Interpretation Description Data Sup porting Code Source(s) Document(s ) Leukocytes 4.4-11.0 <content Saint [#/volume] in styleCode="Bold Ayah Blood by ">White Blood Medical Automated count Cell Count Center </content>8.02 KCUMM<content styleCode="Ital ics"> (4.4-11.0 KCUMM)</content > Hemoglobin 12.3-16. Below low normal <content Saint [Mass/volume] in 0 styleCode="Bold Ayah Blood ">Hemoglobin Medical </content>11.8 Center G/DL L<content styleCode="Ital ics"> (12.3-16.0 G/DL)</content> Hematocrit 36.0-46. <content Saint [Volume 0 styleCode="Bold Ayah Fraction] of ">Hematocrit Medical Blood by </content>37.3 Center Automated count %<content styleCode="Ital ics"> (36.0-46.0 %)</content> Erythrocytes 4.0-5.1 <content Saint [#/volume] in styleCode="Bold Ayah Blood by ">Red Blood Medical Automated count Cell Count Center </content>5.05 MCUMM<content styleCode="Ital ics"> (4.0-5.1 MCUMM)</content > Erythrocyte mean 80.0-100 <content Saint corpuscular .0 styleCode="Bold Ayah volume [Entitic ">Mean Medical volume] by Corpuscular Center Automated count Volume </content>73.9 FL<content styleCode="Ital ics"> (80.0-100.0 FL)</content> Erythrocyte 11.5-14. Above high <content Saint distribution 5 normal styleCode="Bold Ayah width [Ratio] by ">Red Cell Medical Automated count Distribution Center Width </content>15.7 % H<content styleCode="Ital ics"> (11.5-14.5 %)</content> Erythrocyte mean 32.0-37. Below low normal <content Saint corpuscular 0 styleCode="Bold Ayah hemoglobin ">Mean Corpus. Medical concentration Hgb Center [Mass/volume] by Concentration Automated count (MCHC) </content>31.6 G/DL L<content styleCode="Ital ics"> (32.0-37.0 G/DL)</content> Erythrocyte mean 26.0-34. Below low normal <content Saint corpuscular 0 styleCode="Bold Ayah hemoglobin ">Mean Medical [Entitic mass] Corposcular Center by Automated Hemoglobin count </content>23.4 PG L<content styleCode="Ital ics"> (26.0-34.0 PG)</content> Platelets 130-400 <content Saint [#/volume] in styleCode="Bold Ayah Blood by ">Platelet Medical Automated count Count Center </content>356 KCUMM<content styleCode="Ital ics"> (130-400 KCUMM)</content > UNK 0 <content Saint styleCode="Bold Ayah ">Nucleated Red Medical Blood Cell Center </content>0.0 /100<content styleCode="Ital ics"> (0 /100)</content> UNK 0.0 <content Saint styleCode="Bold Ayah ">Nucleated Red Medical Blood Cell Center Count </content>0.00 KCUMM<content styleCode="Ital ics"> (0.0 KCUMM)</content > Platelet mean 8.0-11.0 <content Saint volume [Entitic styleCode="Bold Ayah volume] in Blood ">Mean Platelet Medical by Automated Volume Center count </content>9.9 FL<content styleCode="Ital ics"> (8.0-11.0 FL)</content> ID Date Data Source GFR(Creatinine).[id number] 11/30/2018 11:20:00 PM [facility] 0-0500 Name Value Range Interpretation Code Description Data Carrie rce(s) Supporting Document(s ) UNK > 60 <content [facility] Ayah styleCode="Bold"> Medical Cent er EGFR </content>103 GFR<content styleCode="Italic s"> (> 60 GFR)</content> ID Date Data Source CHMROUTINECCDA.[id number] 11/30/2018 11:20:00 PM [facility] -0500 Name Value Range Interpretation Description Data Sup porting Code Source(s) Document(s ) Lipase 23-300 <content [facility] Ayah [Enzymatic styleCode="Bold Medical activity/vo ">Lipase Center lume] in </content>118 Serum or IU/L<content Plasma styleCode="Ital ics"> (23-300 IU/L)</content> ID Date Data Source [facility].[id number] 11/30/2018 11:20:00 PM EST [facility] Center Name Value Range Interpretation Description Data Sup porting Code Source(s) Document(s ) Chloride 98-107 <content Saint [Moles/volume] in styleCode="Bold"> Justin phs Serum or Plasma Chloride Medical </content>105 Center MEQ/L<content styleCode="Italic s"> (98-107 MEQ/L)</content> Potassium 3.5-5.3 <content Saint [Moles/volume] in styleCode="Bold"> Justin [facility] Serum or Plasma Potassium Medical </content>3.8 Center MEQ/L<content styleCode="Italic s"> (3.5-5.3 MEQ/L)</content> Sodium 137-145 <content Saint [Moles/volume] in styleCode="Bold"> Justin phs Serum or Plasma Sodium Medical </content>140 Center MEQ/L<content styleCode="Italic s"> (137-145 MEQ/L)</content> Glucose 74-106 Above high <content Saint [Mass/volume] in normal styleCode="Bold"> Lizandro hs Serum or Plasma Glucose Medical </content>144 Center MG/DL H<content styleCode="Italic s"> (74-106 MG/DL)</content> Creatinine 0.5-1.3 <content Saint [Mass/volume] in styleCode="Bold"> Lizandro hs Serum or Plasma Creatinine Medical </content>0.7 Center MG/DL<content styleCode="Italic s"> (0.5-1.3 MG/DL)</content> UNK 7-17 <content Saint styleCode="Bold"> Ayah BUN </content>8 Medical MG/DL<content Center styleCode="Italic s"> (7-17 MG/DL)</content> Carbon dioxide, 22-30 <content Saint total styleCode="Bold"> Ayah [Moles/volume] in Carbon Dioxide Medical Serum or Plasma </content>27 Center MEQ/L<content styleCode="Italic s"> (22-30 MEQ/L)</content> Calcium 8.4-10. <content [facility] [Mass/volume] in 2 styleCode="Bold"> Lizandro hs Serum or Plasma Calcium Medical </content>8.8 Center MG/DL<content styleCode="Italic s"> (8.4-10.2 MG/DL)</content> UNK > 60 <content Saint styleCode="Bold"> Ayah EGFR Medical </content>103 Center GFR<content styleCode="Italic s"> (> 60 GFR)</content> Aspartate 14-36 <content Saint aminotransferase styleCode="Bold"> Lizandro hs [Enzymatic Aspartate Medical activity/volume] Aminotransferase Center in Serum or Plasma (AST) </content>23 IU/L<content styleCode="Italic s"> (14-36 IU/L)</content> Alanine 7-30 <content [facility] aminotransferase styleCode="Bold"> Lizandro hs [Enzymatic Alanine Medical activity/volume] Aminotransferase Center in Serum or Plasma (ALT) </content>20 IU/L<content styleCode="Italic s"> (7-30 IU/L)</content> Bilirubin.total 0.2-1.3 <content [facility] [Mass/volume] in styleCode="Bold"> Lizandro hs Serum or Plasma Bilirubin Total Medical </content>0.3 Center MG/DL<content styleCode="Italic s"> (0.2-1.3 MG/DL)</content> Albumin 3.5-5.0 <content [facility] [Mass/volume] in styleCode="Bold"> Lizandro hs Serum or Plasma Albumin Medical </content>4.2 Center G/DL<content styleCode="Italic s"> (3.5-5.0 G/DL)</content> Alkaline 38-126 <content Saint phosphatase styleCode="Bold"> Ayah [Enzymatic Alkaline Medical activity/volume] Phosphatase (ALP) Cente r in Serum or Plasma </content>72 IU/L<content styleCode="Italic s"> (38-126 IU/L)</content> ID Date Data Source Liver Profile 11/30/2018 11:20:00 PM [facility] Name Value Range Interpretation Description Data Sup porting Code Source(s) Document(s ) Aspartate 14-36 <content [facility] aminotransferase styleCode="Bold"> Lizandro hs [Enzymatic Aspartate Medical activity/volume] Aminotransferase Center in Serum or Plasma (AST) </content>23 IU/L<content styleCode="Italic s"> (14-36 IU/L)</content> Alkaline 38-126 <content [facility] phosphatase styleCode="Bold"> Ayah [Enzymatic Alkaline Medical activity/volume] Phosphatase (ALP) Cente r in Serum or Plasma </content>72 IU/L<content styleCode="Italic s"> (38-126 IU/L)</content> Alanine 7-30 <content [facility] aminotransferase styleCode="Bold"> Lizandro hs [Enzymatic Alanine Medical activity/volume] Aminotransferase Center in Serum or Plasma (ALT) </content>20 IU/L<content styleCode="Italic s"> (7-30 IU/L)</content> Albumin 3.5-5.0 <content Saint [Mass/volume] in styleCode="Bold"> Lizandro hs Serum or Plasma Albumin Medical </content>4.2 Center G/DL<content styleCode="Italic s"> (3.5-5.0 G/DL)</content> Bilirubin.total 0.2-1.3 <content Saint [Mass/volume] in styleCode="Bold"> Lizandro hs Serum or Plasma Bilirubin Total Medical </content>0.3 Center MG/DL<content styleCode="Italic s"> (0.2-1.3 MG/DL)</content> UNK 0.0-0.3 <content Saint styleCode="Bold"> Ayah Bilirubin, Direct Medical </content>< 0.2 Center MG/DL<content styleCode="Italic s"> (0.0-0.3 MG/DL)</content> ID Date Data Source HematologyRou 11/30/2018 11:20:00 PM EST [facility] Name Value Range Interpretation Description Data Sup porting Code Source(s) Document(s ) Hemoglobin 12.3-16. Below low normal <content Saint [Mass/volume] in 0 styleCode="Bold Ayah Blood ">Hemoglobin Medical </content>11.8 Center G/DL L<content styleCode="Ital ics"> (12.3-16.0 G/DL)</content> Leukocytes 4.4-11.0 <content Saint [#/volume] in styleCode="Bold Ayah Blood by ">White Blood Medical Automated count Cell Count Center </content>8.02 KCUMM<content styleCode="Ital ics"> (4.4-11.0 KCUMM)</content > Erythrocyte mean 80.0-100 <content Saint corpuscular .0 styleCode="Bold Ayah volume [Entitic ">Mean Medical volume] by Corpuscular Center Automated count Volume </content>73.9 FL<content styleCode="Ital ics"> (80.0-100.0 FL)</content> Hematocrit 36.0-46. <content Saint [Volume 0 styleCode="Bold Ayah Fraction] of ">Hematocrit Medical Blood by </content>37.3 Center Automated count %<content styleCode="Ital ics"> (36.0-46.0 %)</content> Erythrocytes 4.0-5.1 <content Saint [#/volume] in styleCode="Bold Ayah Blood by ">Red Blood Medical Automated count Cell Count Center </content>5.05 MCUMM<content styleCode="Ital ics"> (4.0-5.1 MCUMM)</content > Erythrocyte mean 26.0-34. Below low normal <content Saint corpuscular 0 styleCode="Bold Ayah hemoglobin ">Mean Medical [Entitic mass] Corposcular Center by Automated Hemoglobin count </content>23.4 PG L<content styleCode="Ital ics"> (26.0-34.0 PG)</content> Erythrocyte mean 32.0-37. Below low normal <content [facility] corpuscular 0 styleCode="Bold Ayah hemoglobin ">Mean Corpus. Medical concentration Hgb Center [Mass/volume] by Concentration Automated count (MCHC) </content>31.6 G/DL L<content styleCode="Ital ics"> (32.0-37.0 G/DL)</content> Platelets 130-400 <content Saint [#/volume] in styleCode="Bold Ayah Blood by ">Platelet Medical Automated count Count Center </content>356 KCUMM<content styleCode="Ital ics"> (130-400 KCUMM)</content > Erythrocyte 11.5-14. Above high <content Saint distribution 5 normal styleCode="[employer] [facility] width [Ratio] by ">Red Cell Medical Automated count Distribution Center Width </content>15.7 % H<content styleCode="Ital ics"> (11.5-14.5 %)</content> UNK 0.0 <content Saint styleCode="Bold Ayah ">Nucleated Red Medical Blood Cell Center Count </content>0.00 KCUMM<content styleCode="Ital ics"> (0.0 KCUMM)</content > Platelet mean 8.0-11.0 <content Saint volume [Entitic styleCode="Bold Ayah volume] in Blood ">Mean Platelet Medical by Automated Volume Center count </content>9.9 FL<content styleCode="Ital ics"> (8.0-11.0 FL)</content> UNK 0 <content Saint styleCode="Bold Ayah ">Nucleated Red Medical Blood Cell Center </content>0.0 /100<content styleCode="Ital ics"> (0 /100)</content> ID Date Data Source GFR(Creatinine) 11/30/2018 11:20:00 PM [facility] Name Value Range Interpretation Code Description Data Carrie rce(s) Supporting Document(s ) UNK > 60 <content [facility] styleCode="Bold"> Medical Cent er EGFR </content>103 GFR<content styleCode="Italic s"> (> 60 GFR)</content> ID Date Data Source CHMROUTINECCDA 11/30/2018 11:20:00 PM [facility] Name Value Range Interpretation Description Data Sup porting Code Source(s) Document(s ) Lipase 23-300 <content Saint [facility] [Enzymatic styleCode="Bold Medical activity/vo ">Lipase Center lume] in </content>118 Serum or IU/L<content Plasma styleCode="Ital ics"> (23-300 IU/L)</content> ID Date Data Source BMP 11/30/2018 11:20:00 PM EST [facility] Name Value Range Interpretation Description Data Sup porting Code Source(s) Document(s ) Sodium 137-145 <content Saint [Moles/volume] in styleCode="Bold"> [facility] Serum or Plasma Sodium Medical </content>140 Center MEQ/L<content styleCode="Italic s"> (137-145 MEQ/L)</content> Potassium 3.5-5.3 <content Saint [Moles/volume] in styleCode="Bold"> Justin phs Serum or Plasma Potassium Medical </content>3.8 Center MEQ/L<content styleCode="Italic s"> (3.5-5.3 MEQ/L)</content> Creatinine 0.5-1.3 <content Saint [Mass/volume] in styleCode="Bold"> Lizandro hs Serum or Plasma Creatinine Medical </content>0.7 Center MG/DL<content styleCode="Italic s"> (0.5-1.3 MG/DL)</content> Carbon dioxide, 22-30 <content Saint total styleCode="Bold"> Ayah [Moles/volume] in Carbon Dioxide Medical Serum or Plasma </content>27 Center MEQ/L<content styleCode="Italic s"> (22-30 MEQ/L)</content> UNK 7-17 <content Saint styleCode="Bold"> Ayah BUN </content>8 Medical MG/DL<content Center styleCode="Italic s"> (7-17 MG/DL)</content> Chloride 98-107 <content Saint [Moles/volume] in styleCode="Bold"> Justin phs Serum or Plasma Chloride Medical </content>105 Center MEQ/L<content styleCode="Italic s"> (98-107 MEQ/L)</content> UNK > 60 <content Saint styleCode="Bold"> Ayah EGFR Medical </content>103 Center GFR<content styleCode="Italic s"> (> 60 GFR)</content> Glucose 74-106 Above high <content Saint [Mass/volume] in normal styleCode="Bold"> Lizandro hs Serum or Plasma Glucose Medical </content>144 Center MG/DL H<content styleCode="Italic s"> (74-106 MG/DL)</content> Alanine 7-30 <content Saint aminotransferase styleCode="Bold"> Lizandro hs [Enzymatic Alanine Medical activity/volume] Aminotransferase Center in Serum or Plasma (ALT) </content>20 IU/L<content styleCode="Italic s"> (7-30 IU/L)</content> Aspartate 14-36 <content [facility] aminotransferase styleCode="Bold"> Lizandro hs [Enzymatic Aspartate Medical activity/volume] Aminotransferase Center in Serum or Plasma (AST) </content>23 IU/L<content styleCode="Italic s"> (14-36 IU/L)</content> Calcium 8.4-10. <content [facility] [Mass/volume] in 2 styleCode="Bold"> Lizandro hs Serum or Plasma Calcium Medical </content>8.8 Center MG/DL<content styleCode="Italic s"> (8.4-10.2 MG/DL)</content> Alkaline 38-126 <content [facility] phosphatase styleCode="Bold"> Ayah [Enzymatic Alkaline Medical activity/volume] Phosphatase (ALP) Cente r in Serum or Plasma </content>72 IU/L<content styleCode="Italic s"> (38-126 IU/L)</content> Albumin 3.5-5.0 <content [facility] [Mass/volume] in styleCode="Bold"> Lizandro hs Serum or Plasma Albumin Medical </content>4.2 Center G/DL<content styleCode="Italic s"> (3.5-5.0 G/DL)</content> Bilirubin.total 0.2-1.3 <content [facility] [Mass/volume] in styleCode="Bold"> Lizandro hs Serum or Plasma Bilirubin Total Medical </content>0.3 Center MG/DL<content styleCode="Italic s"> (0.2-1.3 MG/DL)</content> ID Date Data Source Urinalysis.[id number] 07/13/2018 03:36:00 PM EDT Osvaldo [facility] 0 Name Value Range Interpretation Description Data Sup porting Code Source(s) Document(s ) Color of Urine YELLOW <content Saint styleCode="Raquel Ayah d">Color, Medical Urine Center </content>YELL OW <content styleCode="Evangelina lics"> (YELLOW )</content> UNK CLEAR <content Saint styleCode="[facility] d">Urine Medical Clarity Center </content>SAVANNAH R <content styleCode="Evangelina lics"> (CLEAR )</content> UNK NEGATIVE <content Saint styleCode="Raquel Ayah d">Urine Medical Bilirubin Center </content>NEGA TIVE <content styleCode="Evangelina lics"> (NEGATIVE )</content> Glucose NEGATIVE <content Saint [Mass/volume] styleCode="Raquel Canelas in Urine by d">Urine Medical Test strip Glucose Center </content>NEGA TIVE MG/DL<content styleCode="Evangelina lics"> (NEGATIVE MG/DL)</conten t> Ketones NEGATIVE <content Saint [Mass/volume] styleCode="Raquel Canelas in Urine by d">Urine Medical Test strip Ketone Center </content>TRAC E MG/DL<content styleCode="Evangelina lics"> (NEGATIVE MG/DL)</conten t> pH of Urine by 4.5-8.0 <content Saint Test strip styleCode="Raquel Ayah d">Urine pH Medical </content>6.0 Center NM<content styleCode="Evangelina lics"> (4.5-8.0 NM)</content> Hemoglobin NEGATIVE <content Saint [Presence] in styleCode="Raquel Canelas Urine by Test d">Urine Blood Medical strip </content>NEGA Center TIVE <content styleCode="Evangelina lics"> (NEGATIVE )</content> Specific 1.015-1.02 <content Saint gravity of 5 styleCode="Raquel Canelas Urine by Test d">Urine Medical strip Specific Center [facility] </content>1.02 5 NM<content styleCode="Evangelina lics"> (1.015-1.025 NM)</content> Protein NEGATIVE <content Saint [Mass/volume] styleCode="Raquel Ayah in Urine by d">Urine Medical Test strip Protein Center </content>NEGA TIVE MG/DL<content styleCode="Evangelina lics"> (NEGATIVE MG/DL)</conten t> Urobilinogen 0.2-1.0 <content Saint [Units/volume] styleCode="Raquel Ayah in Urine by d">Urine Medical Test strip Urobilinogen Center </content>0.2 MG/DL<content styleCode="Evangelina lics"> (0.2-1.0 MG/DL)</conten t> UNK 0-3 <content Saint styleCode="Raquel Ayah d">Urine White Medical Blood Cell Center </content>10 - 20 HPF<content styleCode="Evangelina lics"> (0-3 HPF)</content> Nitrite NEGATIVE <content Saint [Presence] in styleCode="Raquel Canelas Urine by Test d">Urine Medical strip Nitrite Center </content>NEGA TIVE <content styleCode="Evangelina lics"> (NEGATIVE )</content> Leukocyte NEGATIVE <content Saint esterase styleCode="Raquel Ayah [Presence] in d">Urine Medical Urine by Test Leukocyte Center strip </content>SMAL L <content styleCode="Evangelina lics"> (NEGATIVE )</content> UNK <content Saint styleCode="Raquel Ayah d">Epithelial Medical Cell Center </content>5 - 10 LPF (Reference Range: not available)<br/ > ID Date Data Source Microbiology.[id number] 07/13/2018 03:36:00 PM EDT Osvaldo [facility] 400 Name Value Range Interpretation Code Description Data Carrie rce(s) Supporting Document(s ) UNK <item><content [facility] styleCode="Bold"> Medical Ce nter lture Report </content>
<tab le><tbody><tr><td>S tikaimen Number:</td><td>[id number]</td></tr><tr ><td>Sample Collection Date/Time: </td><td>07/13/2018 3:36 PM</td></tr><tr><td >Specimen Source:</td><td>URI NE BLADDER</td></tr><t r><td>Culture Report:</td><td>NO FURTHER WORKUP </td></tr><tr><td>U rine Culture:</td><td>Co llection Plate Date: 07/13/2018 17:45 </td></tr><tr><td>C ulture Status:</td><td>Fin al </td></tr><tr><td>O rganism 1:</td><td>CORYNEBA CTERIUM SPECIES </td></tr><tr><td>O rganism 2:</td><td>COAGULAS E NEGATIVE STAPHYLOCOCCUS </td></tr></tbody>< /table>
<table border="2"><tbody>< tr><td></td><td>1</ td><td>2</td></tr>< tr><td>Comment</td> <td></td><td></td>< /tr><tr><td>Result Value</td><td>CORYN EBACTERIUM SPECIES </td><td>COAGULASE NEGATIVE STAPHYLOCOCCUS </td></tr><tr><td>R esult Status</td><td>Rama l Result</td><td>Rama l Result</td></tr><tr ><td></td><td></td> <td></td></tr></tbo dy></table></item> UNK <item><content [facility] styleCode="Bold">Cu Medical Ce nter lture Status </content>
<tab le><tbody><tr><td>S pecimen Number:</td><td>[id number]</td></tr><tr ><td>Sample Collection Date/Time: </td><td>07/13/2018 3:36 PM</td></tr><tr><td >Specimen Source:</td><td>URI NE BLADDER</td></tr><t r><td>Culture Status:</td><td>Fin al </td></tr><tr><td>C ulture Report:</td><td>NO FURTHER WORKUP </td></tr><tr><td>U rine Culture:</td><td>Co llection Plate Date: 07/13/2018 17:45 </td></tr><tr><td>O rganism 1:</td><td>CORYNEBA CTERIUM SPECIES </td></tr><tr><td>O rganism 2:</td><td>COAGULAS E NEGATIVE STAPHYLOCOCCUS </td></tr></tbody>< /table>
<table border="2"><tbody>< tr><td></td><td>1</ td><td>2</td></tr>< tr><td>Comment</td> <td></td><td></td>< /tr><tr><td>Result Value</td><td>CORYN EBACTERIUM SPECIES </td><td>COAGULASE NEGATIVE STAPHYLOCOCCUS </td></tr><tr><td>R esult Status</td><td>Rama l Result</td><td>Rama l Result</td></tr><tr ><td></td><td></td> <td></td></tr></tbo dy></table></item> ID Date Data Source Coagulation 05/30/2018 04:14:00 PM [facility] Center Rout.[id number] EDT Name Value Range Interpretation Description Data Sup porting Code Source(s) Document(s ) UNK 9.0-13.0 <content Saint styleCode="Bold" Ayah >Protime Medical </content>11.2 Center SEC<content styleCode="Itali cs"> (9.0-13.0 SEC)</content> aPTT in 25.1-36. <content Saint Platelet poor 5 styleCode="Bold" Ayah plasma by >Partial Medical Coagulation Thromboplastin Center assay Time </content>30.9 SEC<content styleCode="Itali cs"> (25.1-36.5 SEC)</content> INR in 0.80-1.2 <content Saint Platelet poor 0 styleCode="Bold" Ayah plasma by >INR Medical Coagulation </content>1.02 Center assay #<content styleCode="Itali cs"> (0.80-1.20 #)</content> ID Date Data Source Liver 05/30/2018 04:14:00 PM EDT [facility] Profile.[id number] Name Value Range Interpretation Description Data Sup porting Code Source(s) Document(s ) Aspartate 14-36 <content Saint aminotransferase styleCode="Bold"> Lizandro hs [Enzymatic Aspartate Medical activity/volume] Aminotransferase Center in Serum or Plasma (AST) </content>21 IU/L<content styleCode="Italic s"> (14-36 IU/L)</content> Bilirubin.total 0.2-1.3 <content Saint [Mass/volume] in styleCode="Bold"> Lizandro hs Serum or Plasma Bilirubin Total Medical </content>0.4 Center MG/DL<content styleCode="Italic s"> (0.2-1.3 MG/DL)</content> Alanine 7-30 <content Saint aminotransferase styleCode="Bold"> Lizandro hs [Enzymatic Alanine Medical activity/volume] Aminotransferase Center in Serum or Plasma (ALT) </content>18 IU/L<content styleCode="Italic s"> (7-30 IU/L)</content> Alkaline 38-126 <content Saint phosphatase styleCode="Bold"> Ayah [Enzymatic Alkaline Medical activity/volume] Phosphatase (ALP) Cente r in Serum or Plasma </content>64 IU/L<content styleCode="Italic s"> (38-126 IU/L)</content> Albumin 3.5-5.0 <content Saint [Mass/volume] in styleCode="Bold"> Lizandro hs Serum or Plasma Albumin Medical </content>4.2 Center G/DL<content styleCode="Italic s"> (3.5-5.0 G/DL)</content> ID Date Data Source HematologyRou.[id number] 05/30/2018 04:14:00 PM EDT Osvaldo nt [facility] 0400 Name Value Range Interpretation Description Data Sup porting Code Source(s) Document(s ) Hemoglobin 12.3-16. Below low normal <content Saint [Mass/volume] in 0 styleCode="Bold Ayah Blood ">Hemoglobin Medical </content>11.3 Center G/DL L<content styleCode="Ital ics"> (12.3-16.0 G/DL)</content> Leukocytes 4.4-11.0 <content Saint [#/volume] in styleCode="Bold Ayah Blood by ">White Blood Medical Automated count Cell Count Center </content>10.20 KCUMM<content styleCode="Ital ics"> (4.4-11.0 KCUMM)</content > Erythrocytes 4.0-5.1 <content Saint [#/volume] in styleCode="Bold [facility] Blood by ">Red Blood Medical Automated count Cell Count Center </content>4.71 MCUMM<content styleCode="Ital ics"> (4.0-5.1 MCUMM)</content > Erythrocyte mean 32.0-37. Below low normal <content Saint corpuscular 0 styleCode="Bold Ayah hemoglobin ">Mean Corpus. Medical concentration Hgb Center [Mass/volume] by Concentration Automated count (MCHC) </content>31.8 G/DL L<content styleCode="Ital ics"> (32.0-37.0 G/DL)</content> Hematocrit 36.0-46. Below low normal <content Saint [Volume 0 styleCode="Bold Ayah Fraction] of ">Hematocrit Medical Blood by </content>35.5 Center Automated count % L<content styleCode="Ital ics"> (36.0-46.0 %)</content> Erythrocyte mean 80.0-100 <content Saint corpuscular .0 styleCode="Bold Ayah volume [Entitic ">Mean Medical volume] by Corpuscular Center Automated count Volume </content>75.4 FL<content styleCode="Ital ics"> (80.0-100.0 FL)</content> Erythrocyte mean 26.0-34. Below low normal <content Saint corpuscular 0 styleCode="Bold Ayah hemoglobin ">Mean Medical [Entitic mass] Corposcular Center by Automated Hemoglobin count </content>24.0 PG L<content styleCode="Ital ics"> (26.0-34.0 PG)</content> Platelet mean 8.0-11.0 <content Saint volume [Entitic styleCode="Bold Ayah volume] in Blood ">Mean Platelet Medical by Automated Volume Center count </content>10.9 FL<content styleCode="Ital ics"> (8.0-11.0 FL)</content> Erythrocyte 11.5-14. Above high <content Saint distribution 5 normal styleCode="Bold Ayah width [Ratio] by ">Red Cell Medical Automated count Distribution Center Width </content>15.0 % H<content styleCode="Ital ics"> (11.5-14.5 %)</content> Platelets 130-400 <content Saint [#/volume] in styleCode="Bold Ayah Blood by ">Platelet Medical Automated count Count Center </content>363 KCUMM<content styleCode="Ital ics"> (130-400 KCUMM)</content > UNK 0.0 <content Saint styleCode="Bold Ayah ">Nucleated Red Medical Blood Cell Center Count </content>0.00 KCUMM<content styleCode="Ital ics"> (0.0 KCUMM)</content > UNK 0 <content Saint styleCode="Bold Ayah ">Nucleated Red Medical Blood Cell Center </content>0.0 /100<content styleCode="Ital ics"> (0 /100)</content> ID Date Data Source GFR(Creatinine).[id number] 05/30/2018 04:14:00 PM EDT [facility] 0-0400 Name Value Range Interpretation Code Description Data Carrie rce(s) Supporting Document(s ) UNK > 60 <content [facility] styleCode="Bold"> Medical Cent er EGFR </content>123 GFR<content styleCode="Italic s"> (> 60 GFR)</content> ID Date Data Source CHMROUTINECCDA.[id number] 05/30/2018 04:14:00 PM EDT [facility] -0400 Name Value Range Interpretation Description Data Sup porting Code Source(s) Document(s ) UNK >= 1.0 <content [facility] styleCode="Bold Medical ">AG Ratio Center </content>1.3 NM<content styleCode="Ital ics"> (>= 1.0 NM)</content> UNK 2.3-3.5 <content [facility] Ayah styleCode="Bold Medical ">Globulin Center </content>3.3 G/DL<content styleCode="Ital ics"> (2.3-3.5 G/DL)</content> Protein 6.3-8.2 <content [place] [Mass/volum styleCode="Bold Medical e] in Serum ">Total Protein Center or Plasma </content>7.5 G/DL<content styleCode="Ital ics"> (6.3-8.2 G/DL)</content> ID Date Data Source [facility].[id number] 05/30/2018 04:14:00 PM EDT [facility] Name Value Range Interpretation Description Data Sup porting Code Source(s) Document(s ) Carbon dioxide, 22-30 <content [facility] total styleCode="Bold"> Ayah [Moles/volume] in Carbon Dioxide Medical Serum or Plasma </content>28 Center MEQ/L<content styleCode="Italic s"> (22-30 MEQ/L)</content> Potassium 3.5-5.3 <content Saint [Moles/volume] in styleCode="Bold"> Justin phs Serum or Plasma Potassium Medical </content>4.3 Center MEQ/L<content styleCode="Italic s"> (3.5-5.3 MEQ/L)</content> Sodium 137-145 <content Saint [Moles/volume] in styleCode="Bold"> Justin phs Serum or Plasma Sodium Medical </content>141 Center MEQ/L<content styleCode="Italic s"> (137-145 MEQ/L)</content> Chloride 98-107 <content [facility] [Moles/volume] in styleCode="Bold"> Justin banner Serum or Plasma Chloride Medical </content>102 Center MEQ/L<content styleCode="Italic s"> (98-107 MEQ/L)</content> Creatinine 0.5-1.3 <content [facility] [Mass/volume] in styleCode="Bold"> Lizandro hs Serum or Plasma Creatinine Medical </content>0.6 Center MG/DL<content styleCode="Italic s"> (0.5-1.3 MG/DL)</content> Glucose 74-106 <content [facility] [Mass/volume] in styleCode="Bold"> Lizandro hs Serum or Plasma Glucose Medical </content>77 Center MG/DL<content styleCode="Italic s"> (74-106 MG/DL)</content> UNK 7-17 <content Saint styleCode="Bold"> Ayah BUN </content>10 Medical MG/DL<content Center styleCode="Italic s"> (7-17 MG/DL)</content> Calcium 8.4-10. <content [facility] [Mass/volume] in 2 styleCode="Bold"> Lizandro hs Serum or Plasma Calcium Medical </content>9.3 Center MG/DL<content styleCode="Italic s"> (8.4-10.2 MG/DL)</content> UNK > 60 <content Saint styleCode="Bold"> Ayah EGFR Medical </content>123 Center GFR<content styleCode="Italic s"> (> 60 GFR)</content> Aspartate 14-36 <content Saint aminotransferase styleCode="Bold"> Lizandro hs [Enzymatic Aspartate Medical activity/volume] Aminotransferase Center in Serum or Plasma (AST) </content>21 IU/L<content styleCode="Italic s"> (14-36 IU/L)</content> Alanine 7-30 <content [facility] aminotransferase styleCode="Bold"> Lizandro hs [Enzymatic Alanine Medical activity/volume] Aminotransferase Center in Serum or Plasma (ALT) </content>18 IU/L<content styleCode="Italic s"> (7-30 IU/L)</content> Alkaline 38-126 <content [facility] phosphatase styleCode="Bold"> Yaah [Enzymatic Alkaline Medical activity/volume] Phosphatase (ALP) Cente r in Serum or Plasma </content>64 IU/L<content styleCode="Italic s"> (38-126 IU/L)</content> Bilirubin.total 0.2-1.3 <content [facility] [Mass/volume] in styleCode="Bold"> Lizandro hs Serum or Plasma Bilirubin Total Medical </content>0.4 Center MG/DL<content styleCode="Italic s"> (0.2-1.3 MG/DL)</content> Albumin 3.5-5.0 <content [facility] [Mass/volume] in styleCode="Bold"> Lizandro hs Serum or Plasma Albumin Medical </content>4.2 Center G/DL<content styleCode="Italic s"> (3.5-5.0 G/DL)</content> Procedure Social History Code Duration Value Status Description Data Source(s ) Caffeine Use 05/23/2020 completed NEXTGEN ([place] nt Details 12:00:00 AM [facility] EDT [place]) Smoking 05/23/2020 Unknown if completed Unknown if ever NEXTGEN ( [facility] 12:00:00 AM ever smoked smoked Ayah [facility] EDT [place]) Smoking 05/16/2019 Denies Ever completed Denies Ever [place] s 06:00:00 PM Smoked Smoked Medical Cente r EDT Smoking 05/16/2019 Denies Ever completed Denies Ever [place] 05:49:00 PM Smoked Smoked Medical Cente r EDT Smoking 05/16/2019 Denies Ever completed Denies Ever [place] 04:57:00 PM Smoked Smoked Medical Cente r EDT Smoking 05/04/2019 Denies Ever completed Denies Ever [place] 07:57:00 AM Smoked Smoked Medical Cente r EDT Smoking 05/04/2019 Denies Ever completed Denies Ever [place] 03:17:00 AM Smoked Smoked Medical Cente r EDT Smoking 05/03/2019 Denies Ever completed Denies Ever [place] 11:12:00 PM Smoked Smoked Medical Cente r EDT Smoking 05/03/2019 Denies Ever completed Denies Ever [place] 10:55:00 PM Smoked Smoked Medical Cente r EDT Smoking 05/03/2019 Denies Ever completed Denies Ever [place] 10:55:00 PM Smoked Smoked Medical Cente r EDT Smoking 12/01/2018 Denies Ever completed Denies Ever [place] 12:32:00 AM Smoked Smoked Medical Cente r EST Smoking 11/30/2018 Denies Ever completed Denies Ever [place] 08:16:00 PM Smoked Smoked Medical Cente r EST Smoking 11/30/2018 Denies Ever completed Denies Ever [place] 08:06:00 PM Smoked Smoked Medical Cente r EST Alcohol Use completed [facility] ([facility]) Smoking Unknown if completed Unknown if ever Saint Sundeep chandra ever smoked smoked Medical Cente r Smoking Unknown if completed Unknown if ever eCW2 (Sadie nned ever smoked smoked [facility] [employer]) Vital Signs ID Date Data Source UNK Name Value Range Interpretation Code Description Data Source(s) Oxygen saturation 97 % 97 % NEXTGEN ([facility] in Arterial blood [facility] by Pulse oximetry Center) Body mass index 29.66 kg/m2 Overweight 29.66 kg/m2 NEXTGEN ([facility] (BMI) [Ratio] [facility]) Respiratory rate 20 /min 20 /min NEXTGEN ([facility]) Body temperature 37.06 Taina 37.06 Taina [facility]) Heart rate 71 /min 71 /min NEXTGEN ([facility]) Diastolic blood 77 mm[Hg] 77 mm[Hg] NEXTGEN ( [facility]) Systolic blood 115 mm[Hg] 115 mm[Hg] [facility] ([facility] pressure [facility]) Body weight 71.214 kg 71.214 kg [facility] ([facility]) Body height 154.94 cm 154.94 cm [facility] ([facility]) Systolic blood 132 mm[Hg] 132 mm[Hg] NEXTGEN (S nt pressure [facility]) Body weight 70.307 kg 70.307 kg [facility] ([facility]) Body height 154.94 cm 154.94 cm [facility] ([facility]) Oxygen saturation 97 % 97 % NEXTGEN ([facility] in Arterial blood [facility] by Pulse oximetry Center) Body mass index 29.29 kg/m2 Overweight 29.29 kg/m2 NEXTGEN ([facility] (BMI) [Ratio] [facility]) Respiratory rate 20 /min 20 /min [facility] ([facility]) Body temperature 37.39 Taina 37.39 Taina [facility] ([facility]) Heart rate 89 /min 89 /min [facility] ([facility]) Diastolic blood 87 mm[Hg] 87 mm[Hg] [facility] ( [facility]) Oxygen saturation 97 % 97 % [facility] ([facility] in Arterial blood [facility] by Pulse oximetry Center) Body mass index 29.85 kg/m2 Overweight 29.85 kg/m2 NEXTGEN ([facility] (BMI) [Ratio] [facility]) Respiratory rate 18 /min 18 /min [facility] ([facility]) Body temperature 36.44 Taina 36.44 Taina [facility] ([facility]) Heart rate 97 /min 97 /min [facility] ([facility]) Diastolic blood 76 mm[Hg] 76 mm[Hg] [facility] ( [facility]) Systolic blood 127 mm[Hg] 127 mm[Hg] [facility] Body weight 71.668 kg 71.668 kg [facility] ([facility]) Body height 154.94 cm 154.94 cm [facility] ([facility]) Oxygen saturation 98 % 98 % NEXTGEN ([facility] in Arterial [facility] by Pulse oximetry Center) Body mass index 29.17 kg/m2 Overweight 29.17 kg/m2 [facility] ([facility] (BMI) [Ratio] [facility]) Respiratory rate 20 /min 20 /min [facility] ([facility]) Body temperature 36.61 Taina 36.61 Taina [facility] ([facility]) Heart rate 66 /min 66 /min [facility] ([facility]) Diastolic blood 84 mm[Hg] 84 mm[Hg] [facility] ( [facility] pressure [facility]) Systolic blood 122 mm[Hg] 122 mm[Hg] [facility] ([facility] Body weight 70.035 kg 70.035 kg [facility] ([facility]) Body height 154.94 cm 154.94 cm [facility] ([facility]) Body temperature 36.996911 36.485204 [facility] Respiratory rate 17 /min 17 /min [facility] Oxygen saturation 99 % 99 % [facility] J osephs in [facility] by Pulse oximetry Heart rate 77 /min 77 /min [facility] Diastolic blood 75 mm[Hg] 75 mm[Hg] [facility] Systolic blood 128 mm[Hg] 128 mm[Hg] [facility] Body temperature 36.781893 36.186541 [facility] Respiratory rate 18 /min 18 /min [facility] Oxygen saturation 98 % 98 % [facility]ph[facility] in [facility] by Pulse oximetry Heart rate 76 /min 76 /min [facility] Diastolic blood 79 mm[Hg] 79 mm[Hg] [facility] Systolic blood 136 mm[Hg] 136 mm[Hg] [facility] Body weight 80.392438 80.804406 kg [facility] Measured kg [facility] Body temperature 36.933263 36.567588 [facility] Respiratory rate 16 /min 16 /min [facility] Oxygen saturation 98 % 98 % [facility]ph[facility] in [facility] by Pulse oximetry Heart rate 79 /min 79 /min [facility] Body height 160.369481 160.342865 cm [facility] Diastolic blood 87 mm[Hg] 87 mm[Hg] [facility] pressure [facility] Center Systolic blood 140 mm[Hg] 140 mm[Hg] [facility] pressure [facility] Body mass index 31.2 kg/m2 31.2 kg/m2 [facility] (BMI) [Ratio] Medical [address]anne [address] Body surface area 1.75 m2 1.75 m2 NEXTGEN ([facility] Derived from [facility]) Body mass index 29.59 kg/m2 Overweight 29.59 kg/m2 NEXTGEN ([facility] (BMI) [Ratio] [facility]) Respiratory rate 18 /min 18 /min NEXTGEN ([facility]) Body temperature 37.06 Taina 37.06 Taina [facility] ([facility]) Heart rate 82 /min 82 /min [facility] ([facility]) Diastolic blood 77 mm[Hg] 77 mm[Hg] [facility] ( [facility]) Systolic blood 119 mm[Hg] 119 mm[Hg] NEXTGEN ([facility]) Body weight 71.033 kg 71.033 kg NEXTGEN ([facility]) Body height 154.94 cm 154.94 cm [facility] ([facility]) Oxygen saturation 100 % 100 % [facility] ([facility] in Arterial blood [facility] Pulse oximetry Center) Body mass index 29.55 kg/m2 Overweight 29.55 kg/m2 NEXTGEN ([facility] (BMI) [Ratio] [facility]) Respiratory rate 18 /min 18 /min [facility] ([facility]) Body temperature 36.78 Taina 36.78 Taina [facility] ([facility]) Heart rate 70 /min 70 /min NEXTGEN ([facility]) Diastolic blood 79 mm[Hg] 79 mm[Hg] NEXTGEN ( [facility]) Systolic blood 119 mm[Hg] 119 mm[Hg] [facility] (S aint [facility]) Body weight 70.942 kg 70.942 kg [facility] ([facility]) Body height 154.94 cm 154.94 cm [facility] ([facility]) Body temperature 36.520380 36.459132 [facility] Respiratory rate 20 /min 20 /min [facility] Heart rate 78 /min 78 /min [facility] Diastolic blood 74 mm[Hg] 74 mm[Hg] [facility] Medical [place] Systolic blood 126 mm[Hg] 126 mm[Hg] [facility] Body temperature 37.608664 37.568363 [facility] Respiratory rate 20 /min 20 /min [facility] Heart rate 67 /min 67 /min [facility] Diastolic blood 66 mm[Hg] 66 mm[Hg] [facility] Medical [place] Systolic blood 115 mm[Hg] 115 mm[Hg] [facility] Body temperature 37.396460 37.035270 [facility] Respiratory rate 20 /min 20 /min [facility] Heart rate 73 /min 73 /min [facility] Diastolic blood 82 mm[Hg] 82 mm[Hg] [facility] Medical [place] Systolic blood 124 mm[Hg] 124 mm[Hg] [facility] Body temperature 36.746149 36.946184 [facility] Respiratory rate 20 /min 20 /min [facility] Heart rate 67 /min 67 /min [facility] Diastolic blood 90 mm[Hg] 90 mm[Hg] [facility] Medical [place] Systolic blood 132 mm[Hg] 132 mm[Hg] [facility] Body temperature 37.816120 37.615667 [facility] Respiratory rate 18 /min 18 /min [facility] Heart rate 73 /min 73 /min [facility] Diastolic blood 61 mm[Hg] 61 mm[Hg] [facility] Systolic blood 111 mm[Hg] 111 mm[Hg] [facility] Medical [place] Body temperature 36.007951 36.448253 [facility] Respiratory rate 20 /min 20 /min [facility] Heart rate 70 /min 70 /min [facility] Diastolic blood 75 mm[Hg] 75 mm[Hg] [facility] Systolic blood 121 mm[Hg] 121 mm[Hg] [facility] Body temperature 36.438052 36.070663 [facility] Respiratory rate 18 /min 18 /min [facility] Heart rate 71 /min 71 /min [facility] Diastolic blood 75 mm[Hg] 75 mm[Hg] [facility] Systolic blood 128 mm[Hg] 128 mm[Hg] [facility] Body weight 72.065166 72.954955 kg [facility] Andersonp hs Measured kg Medical Center Body height 154.474831 154.206296 cm [facility] Body mass index 30.33 kg/m2 30.33 kg/m2 [facility] J [facility]phs (BMI) [Ratio] Medical [facility] ter Body temperature 37.241040 37.985291 [facility] Respiratory rate 18 /min 18 /min [facility] Heart rate 76 /min 76 /min [facility] Diastolic blood 82 mm[Hg] 82 mm[Hg] [facility] Systolic blood 126 mm[Hg] 126 mm[Hg] [facility] Oxygen saturation 97 % 97 % [facility] J osephs in Arterial blood [facility] by Pulse oximetry Body temperature 36.431503 36.318643 [facility] Respiratory rate 17 /min 17 /min [facility] Heart rate 80 /min 80 /min [facility] Diastolic blood 99 mm[Hg] 99 mm[Hg] [facility] Systolic blood 159 mm[Hg] 159 mm[Hg] [facility] Oxygen saturation 95 % 95 % [facility] J osephs in [facility] Center blood [facility] by Pulse oximetry Body temperature 37.953126 37.791088 [facility] Respiratory rate 17 /min 17 /min [facility] Heart rate 65 /min 65 /min [facility] Diastolic blood 80 mm[Hg] 80 mm[Hg] [facility] Systolic blood 144 mm[Hg] 144 mm[Hg] [facility] Body weight 69.807872 69.204689 kg [facility] Bone hs Measured kg Medical Center Oxygen saturation 99 % 99 % [facility] J osephs in Arterial blood [facility] by Pulse oximetry Oxygen saturation 97 % 97 % NEXTGEN ([facility] Arterial blood [facility] by Pulse oximetry Center) Body mass index 29.85 kg/m2 Overweight 29.85 kg/m2 NEXTGEN ([facility] (BMI) [Ratio] [facility]) Respiratory rate 18 /min 18 /min NEXTGEN ([facility]) Body temperature 36.50 Taina 36.50 Taina [facility] ([facility]) Heart rate 71 /min 71 /min NEXTGEN ([facility]) Diastolic blood 85 mm[Hg] 85 mm[Hg] NEXTGEN ( [facility]) Systolic blood 122 mm[Hg] 122 mm[Hg] NEXTGEN (S aint pressure [facility]) Body weight 71.668 kg 71.668 kg NEXTGEN ([facility]) Body height 154.94 cm 154.94 cm NEXTGEN ([facility]) Diastolic blood 88 mm[Hg] 88 mm[Hg] eCW2 (Sadie nned pressure [facility]) Systolic blood 119 mm[Hg] 119 mm[Hg] eCW2 (Plan james pressure [facility]) Body mass index 27.63 kg/m2 27.63 kg/m2 eCW2 (P lanned (BMI) [Ratio] [facility] [employer]) Body weight 156 [lb_av] 156 [lb_av] eCW2 (Plann ed Measured [facility]) Body height 63 [in_us] 63 [in_us] eCW2 (Planned [facility]) Oxygen saturation 97 % 97 % [facility] ([facility] in Arterial blood [facility] by Pulse oximetry Center) Body mass index 29.66 kg/m2 Overweight 29.66 kg/m2 NEXTGEN ([facility] (BMI) [Ratio] [facility]) Respiratory rate 20 /min 20 /min [facility] ([facility]) Body temperature 37.22 Taina 37.22 Taina [facility] ([facility]) Heart rate 86 /min 86 /min [facility] ([facility]) Diastolic blood 83 mm[Hg] 83 mm[Hg] NEXTGEN ( [facility] pressure [facility]) Systolic blood 127 mm[Hg] 127 mm[Hg] NEXTGEN (S aint pressure [facility]) Body weight 71.214 kg 71.214 kg NEXTGEN ([facility]) Body height 154.94 cm 154.94 cm [facility] ([facility]) Body temperature 36.376321 36.383073 [facility] Respiratory rate 18 /min 18 /min [facility] Oxygen saturation 98 % 98 % [facility] in [facility] blood [facility] by Pulse oximetry Heart rate 80 /min 80 /min [facility] Diastolic blood 78 mm[Hg] 78 mm[Hg] [facility] Systolic blood 130 mm[Hg] 130 mm[Hg] [facility] Body temperature 36.682164 36.795602 [facility] Respiratory rate 20 /min 20 /min [facility] Oxygen saturation 97 % 97 % [facility]ph[facility] in [facility] blood [facility] by Pulse oximetry Heart rate 72 /min 72 /min [facility] Diastolic blood 92 mm[Hg] 92 mm[Hg] [facility] Systolic blood 143 mm[Hg] 143 mm[Hg] [facility] Body temperature 36.427230 36.729122 [facility] Respiratory rate 18 /min 18 /min [facility] Oxygen saturation 98 % 98 % [facility]ph[facility] in [facility] blood [facility] by Pulse oximetry Heart rate 75 /min 75 /min [facility] Diastolic blood 69 mm[Hg] 69 mm[Hg] [facility] Systolic blood 128 mm[Hg] 128 mm[Hg] [facility] Body temperature 37.949245 37.905798 [facility] Respiratory rate 18 /min 18 /min [facility] Oxygen saturation 98 % 98 % [facility] in [facility] by Pulse oximetry Heart rate 82 /min 82 /min [facility] Diastolic blood 100 mm[Hg] 100 mm[Hg] [facility] Systolic blood 155 mm[Hg] 155 mm[Hg] [facility] Oxygen saturation 98 % 98 % [facility] ([facility] Arterial [facility] by Pulse oximetry Center) Body mass index 29.48 kg/m2 Overweight 29.48 kg/m2 NEXTGEN ([facility] (BMI) [Ratio] [facility]) Respiratory rate 18 /min 18 /min NEXTGEN ([facility]) Body temperature 36.50 Taina 36.50 Taina [facility] ([facility]) Heart rate 74 /min 74 /min NEXTGEN ([facility]) Diastolic blood 84 mm[Hg] 84 mm[Hg] NEXTGEN ( [facility]) Systolic blood 127 mm[Hg] 127 mm[Hg] NEXTGEN ([facility]) Body weight 70.760 kg 70.760 kg [facility] ([facility]) Body height 154.94 cm 154.94 cm [facility] ([facility]) Oxygen saturation 98 % 98 % [facility] ([facility] in Arterial blood [facility] by Pulse oximetry Center) Body mass index 29.85 kg/m2 Overweight 29.85 kg/m2 [facility] ([facility] (BMI) [Ratio] [facility]) Respiratory rate 18 /min 18 /min [facility] ([facility]) Body temperature 36.72 Taina 36.72 Taina [facility] ([facility]) Heart rate 83 /min 83 /min [facility] ([facility]) Diastolic blood 85 mm[Hg] 85 mm[Hg] [facility] ( [facility]) Systolic blood 130 mm[Hg] 130 mm[Hg] [facility] ([facility]) Body weight 71.668 kg 71.668 kg [facility] ([facility] [facility] Body height 154.94 cm 154.94 cm [facility] ([facility]) Patient Treatment Plan of Care Planned Activity Planned Date Details Description Data Source (s) Ciprofloxacin 250 MG Oral 07/08/2020 NE XTGEN ([facility] Tablet [Cipro] 12:00:[address] [facility]) Naproxen 500 MG Oral 06/26/2020 [facility] Acetaminophen 500 MG Oral 04/08/2020 NE XTGEN ([facility] Capsule [Mapap] 12:00:00 AM EDT [facility] edical Center) Amoxicillin 500 MG Oral 04/08/2020 NEXT GEN ([facility] Capsule 12:00:00 AM [facility]) Polymyxin B 49136 UNT/ML / 03/19/2020 N EXTGEN ([facility] Trimethoprim 1 MG/ML 12:00:00 AM [facility] Ophthalmic Solution Center) Amlodipine 5 MG Oral 03/04/2020 NEXTGEN ([facility] Tablet 12:00:00 AM [facility]) sennosides, MCC 8.6 MG 01/31/2020 NEXTG EN ([facility] Oral Tablet 12:00:00 AM [facility]) Methyldopa 500 MG Oral 01/01/2020 NEXTG EN ([facility] Tablet 12:00:00 AM [facility]) Polyethylene Glycol 400 4 10/06/2019 NE XTGEN ([facility] MG/ML / Propylene glycol 3 12:00:[address] [facility] MG/ML Ophthalmic Solution Ce nter) [Systane] Hydrocortisone 25 MG/ML 08/28/2019 NEXT GEN ([facility] Topical Cream 12:00:00 AM [facility] ical [place]) 28 mg iron-800 05/19/2019 NEXT GEN ([facility] mcg tablet 12:00:00 AM [facility]) Levonorgestrel 1.5 MG Oral 04/25/2019 N EXTGEN ([facility] Tablet [Plan B One-Step] 12:00:00 AM [facility]) Amlodipine 5 MG Oral 04/19/2019 NEXTGEN ([facility] Tablet 12:00:00 AM [facility]) Levonorgestrel 1.5 MG Oral 04/05/2019 N EXTGEN ([facility] Tablet [Plan B One-Step] 12:00:00 AM [facility]) Naproxen 500 MG Oral 03/23/2019 NEXTGEN ([facility] Tablet 12:00:00 AM [facility]) 28 mg-800 mcg 02/27/2019 NEXTG EN ([facility] tablet 12:00:00 AM [facility]) Amlodipine 5 MG Oral 12/02/2018 NEXTGEN ([facility] Tablet 12:00:00 AM [facility]) Levonorgestrel 1.5 MG Oral 11/30/2018 N EXTGEN ([facility] Tablet [Plan B One-Step] 12:00:00 AM [facility]) Ibuprofen 800 MG Oral 11/02/2018 NEXTGE N ([facility] Tablet 12:00:00 AM [facility]) ferrous sulfate 325 MG 09/26/2018 NEXTG EN ([facility] Oral Tablet 12:00:00 AM [facility]) gabapentin 100 MG Oral 08/17/2018 NEXTG EN ([facility] Capsule 12:00:00 AM [facility]) Loratadine 10 MG Oral 05/25/2018 NEXTGE N ([facility] Tablet 12:00:00 AM [facility]) Calcium Carbonate 1250 MG 03/28/2018 NE XTGEN ([facility] / Cholecalciferol 200 UNT 12:00:00 AM [facility] Oral Tablet [Os-Aidee 500 Cent er) with D] Famotidine 20 MG Oral 03/24/2018 NEXTGE N ([facility] Tablet 12:00:00 AM [facility]) Flonase Allergy Relief 50 02/10/2018 NE XTGEN ([facility] mcg/actuation nasal 12:00:00 AM [facility] Medical spray,suspension Center) topiramate 50 MG Oral 09/14/2017 NEXTGE N ([facility] Tablet [Topamax] 12:00:00 AM [facility]) Fluoxetine 20 MG Oral 03/26/2017 NEXTGE N ([facility] Capsule 12:00:00 AM [facility]) amLODIPine 5 mg [facility] TabletDirections: 1 tablet C enter oral daily Ondansetron 4 MG Oral eCW2 ( [facility] Tablet [Zofran[facility] [place] [facility]) Azithromycin 500 MG Oral eCW 2 ([facility] Table[facility] [place] [facility] rated) Lutera 0.1-20 MG-MCG eCW2 ([facility] [place] [facility]) Mifepristone 200 MG eCW2 ([facility] [place] [facility]) Ibuprofen 800 MG Oral eCW2 ( [facility] Table[facility] [place] [facility] rated) Misoprostol 4 tabs 200 MCG e CW2 ([facility] [place] [facility]) Cyred 0.15-30 MG-MCG eCW2 ([facility] [place] [facility])
[2020-08-24 17:03] VITALS: BP 128/92; PULSE 84; TEMP 98.2; BMI 30.2
--- NOTE | 2020-08-24 18:20 | PDOC ---
History of Present Illness - General Chief Complaint: Foreign Body (FB) Stated Complaint: FOREIGN BODY- FISH BONE, THROAT Time Seen by Provider: 08/24/20 17:08 History Source: Patient - History of Present Illness Initial Comments: 08/24/20 18:22 35F w/no PMH presents after fish bone became lodged in throat. She reports eating fish when she noted that what felt like a bone became lodged in the L side of her throat. She reports pain at a specific site in the esophagus. No similar prior episodes. She reports tolerating po, but feeling worsening pain with po intake. She denies any nausea, vomiting. Past History - Medical History Allergies/Adverse Reactions: Allergies Allergy/AdvReac Type Severity Reaction Status Date / Time No Known Allergies Allergy Verified 08/24/20 16:52 Home Medications: Ambulatory Orders Labetalol HCl [Normodyne -] 200 mg PO DAILY 01/11/20 Vitamins (Sjr) - 1 tab PO DAILY 01/11/20 Anemia: No Asthma: No Cancer: No Cardiac Disorders: No CVA: No COPD: No CHF: No Dementia: No Diabetes: No GI Disorders: No Disorders: No HTN: Yes Hypercholesterolemia: No Liver Disease: No Seizures: No Thyroid Disease: No - Surgical History Abdominal Surgery: No Appendectomy: No Cardiac Surgery: No Cholecystectomy: No Lung Surgery: No Neurologic Surgery: No Orthopedic Surgery: No - Reproductive History Is Patient Now?: No (#): 3 Para: 1 - Immunization History Immunization Up to Date: No - Psycho-Social/Smoking History Smoking Status: No Smoking History: Never smoked Have you smoked in the past 12 months: No Number of Cigarettes Smoked Daily: 0 - Substance Abuse Hx (Audit-C & DAST Scrn) How often the patient has a drink containing alcohol: Never Score: In Men: 4 or > Positive; In Women: 3 or > Positive: 0 Screen Result (Pos requires Nsg. Audit-10AR): Negative In the last yr the pt used illegal drug/Rx for NonMed reason: No Score: Yes response is considered Positive: 0 Screen Result (Positive result requires Nsg. DAST-10): Negative Review of Systems - Review of Systems Able to Perform ROS?: Yes Comments:: 08/24/20 18:25 GENERAL/CONSTITUTIONAL: No fever or chills. No weakness. HEAD, EYES, EARS, NOSE AND THROAT: Throat pain. No change in vision. No ear pain or discharge. No sore throat. CARDIOVASCULAR: No chest pain or shortness of breath RESPIRATORY: No cough, wheezing, or hemoptysis. GASTROINTESTINAL: No nausea, vomiting, diarrhea or constipation. GENITOURINARY: No dysuria, frequency, or change in urination. MUSCULOSKELETAL: No joint or muscle swelling or pain. No neck or back pain. SKIN: No rash NEUROLOGIC: No headache, vertigo, loss of consciousness, or change in strength/sensation. ENDOCRINE: No increased thirst. No abnormal weight change HEMATOLOGIC/LYMPHATIC: No anemia, easy bleeding, or history of blood clots. ALLERGIC/IMMUNOLOGIC: No hives or skin allergy. *Physical Exam - Vital Signs Last Vital Signs Temp Pulse Resp BP Pulse Ox 98.2 F 84 18 128/92 99 08/24/20 16:52 08/24/20 16:52 08/24/20 16:52 08/24/20 16:52 08/24/20 17:05 - Physical Exam 08/24/20 18:26 GENERAL: Awake, alert, and fully oriented, in no acute distress HEAD: No signs of trauma, normocephalic, atraumatic EYES: PERRLA, EOMI, sclera anicteric, conjunctiva clear ENT: Auricles normal inspection, hearing grossly normal, nares patent, o ropharynx clear without exudates. Moist mucosa NECK: Normal ROM, supple, no lymphadenopathy, JVD, or masses LUNGS: No distress, speaks full sentences, clear to auscultation bilaterally HEART: Regular rate and rhythm, normal S1 and S2, no murmurs, rubs or gallops, peripheral pulses normal and equal bilaterally. ABDOMEN: Soft, nontender, normoactive bowel sounds. No guarding, no rebound. No masses EXTREMITIES : Normal inspection, Normal range of motion, no edema. No clubbing or cyanosis NEUROLOGICAL: Cranial nerves II through XII grossly intact. Normal speech, normal gait, no focal sensorimotor deficits SKIN: Warm, Dry, normal turgor, no rashes or lesions noted ED Treatment Course - RADIOLOGY Radiology Studies Ordered: Category Date Time Status NECK SOFT TISSUE [RAD] Stat Radiology 08/24/20 17:09 Taken Medical Decision Making - Medical Decision Making 08/24/20 18:26 35F w/no PMH p/w throat pain with sensation of fish bone stuck in throat, representing foreign body vs throat pain s/p bone passage. Plan: XR soft tissue neck CT soft tissue neck if XR negative Dispo: Pending imaging. Transfer if bone is lodged and requires specialist intervention unavailable at [facility] Discharge - Discharge Information Problems reviewed: Yes Clinical Impression/Diagnosis: Throat pain in adult Condition: Stable Disposition: HOME - Admission No - Follow up/Referral - Patient Discharge Instructions - Post Discharge Activity
--- NOTE | 2020-08-24 18:48 | PDOC ---
Documentation entered by Ines Renee SCRIBE, acting as scribe for Alia Mahoney MD. Alia Mahoney MD: This documentation has been prepared by the scribeVíctor Ana, SCRIBE, under my direction and personally reviewed by me in its entirety. I confirm that the documentation accurately reflects all work, treatment, procedures, and medical decision making performed by me. Attending Attestation - Resident Resident Name: Elliott Ribeiro - ED Attending Attestation I have performed the following: I have examined & evaluated the patient, The case was reviewed & discussed with the resident, I agree w/resident's findings & plan, Exceptions are as noted - HPI HPI: 08/24/20 17:18 Patient is a 35 year old female with no significant past medical history of who presents to the ED with a foreign body in throat. Patient stated she was eating fish when she believes a bone got stuck in the left side of her throat. Patient endorses: pain in esophagus. Patient denies: nausea, vomiting, or any other related symptoms. Allergies: NKDA - Physicial Exam PE: 08/24/20 17:26 General: comfortable appearing HEENT: no visualized foreign body in OP, uvula midline, no stridor, no muffled voice, speaking in full sentences Neck: FROM, supple - Medical Decision Making 08/24/20 17:26 35 yo F p/w report of fish bone stuck in the L side of her throat, no signs of resp distress or airway compromise. Plan: -xray soft tissue neck -reassess This clinical encounter is taking place during a federal and state health care emergency attributable to the novel Agrawal Virus pandemic. The [place] of the Department of Health and Human Services has declared, pursuant to the Public Health Service Act 319F-3 (42 U.S.C. 247d-6d), that a covered persons activities related to medical countermeasures against COVID-19 will be immune from liability under Federal and State law. Pt. signed out to incoming night team. If xray without evidence of foreign body will get CT neck for further evaluation. Discharge - Discharge Information Problems reviewed: Yes Clinical Impression/Diagnosis: Throat pain in adult, Foreign body sensation in throat Condition: Stable Disposition: HOME - Follow up/Referral Referrals: Justin Erwin MD [Staff Physician] - - Patient Discharge Instructions Additional Instructions: Se le pat con preocupacin por la gerson de pescado en la garganta. [place] imagen no mostr cuerpos extraos. Anoop un seguimiento con condon mdico de atencin primaria dentro de temitope semana. Regrese a la jessika de emergencias si presenta sntomas nuevos o que empeoran. - Post Discharge Activity
--- NOTE | 2020-08-24 20:12 | PDOC ---
*Physical Exam - Vital Signs Last Vital Signs Temp Pulse Resp BP Pulse Ox 98.2 F 84 18 128/92 99 08/24/20 16:52 08/24/20 16:52 08/24/20 16:52 08/24/20 16:52 08/24/20 17:05 Medical Decision Making - Medical Decision Making 08/24/20 20:10 Pt received on signout; I don't see a FB of a bone in her throat/esophagus/pharynx/larynx either on XR or CT scan Pt is stable for d/c We are awaiting official result. 08/24/20 20:48 Patient Name: GUADALUPE HERNANDEZ THIS IS A PRELIMINARY REPORT DATE OF SERVICE: 2020-08-24 19:11:36 IMAGES: [id number] EXAM: SOFT TISSUE NECK CT W/O CONTR HISTORY: Fishbone in throat COMPARISON: None. FINDINGS: The skull base is unremarkable No radiopaque foreign bodies visualized. No masses or collections The airway is widely patent. The prevertebral soft tissues are within normal limits The visualized upper lungs are clear Pt is stable to go home Discharge - Discharge Information Problems reviewed: Yes Clinical Impression/Diagnosis: Throat pain in adult, Foreign body sensation in throat Condition: Stable Disposition: HOME - Follow up/Referral Referrals: Justin Erwin MD [Staff Physician] - - Patient Discharge Instructions Additional Instructions: Se le pat con preocupacin por la gerson de pescado en la garganta. [place] imagen no mostr cuerpos extraos. Anoop un seguimiento con clarke mdico de atencin primaria dentro de temitope semana. Regrese a la jessika de emergencias si presenta sntomas nuevos o que empeoran. - Post Discharge Activity
== END 2020-08-24 20:59 | disposition home or self-care (01) ==
LOC: JER 16:44
DX: R07.0 Pain in throat (principal)
CPT/HCPCS: 70360-TC-FY; 70490-TC; 99284-25

== ENCOUNTER 2021-01-22 20:52 | Emergency (ER) | payer OTHER ==
[2021-01-22 21:03] VITALS: BP 131/80; PULSE 94; TEMP 98.7; BMI 29.2
== END 2021-01-22 21:43 | disposition home or self-care (01) ==
LOC: JER 20:52
DX: R51.9 Headache, unspecified (principal)
CPT/HCPCS: 87804; 99283-25; C9803; U0003

== ENCOUNTER 2022-02-09 18:46 | Emergency (ER) | payer OTHER ==
[2022-02-09 19:09] VITALS: BP 150/86; PULSE 75; TEMP 98.4; BMI 28.3
[2022-02-09] MEDS ORDERED: KETOROLAC TROMETHAMINE 30 MG/1 ML VIAL IM ONE (21:32)
[2022-02-09] MEDS ORDERED: KETOROLAC TROMETHAMINE 30 MG/1 ML VIAL ONE (21:49)
== END 2022-02-09 22:14 | disposition home or self-care (01) ==
LOC: JERFT 18:46
PROC: 3E023GC Introduction of Other Therapeutic Substance into Muscle, Percutaneous Approach (ICD-10-PCS; principal; 2022-02-09)
DX: N64.4 Mastodynia (principal)
CPT/HCPCS: 99284-25